=== PATIENT | male | born 1935 | race Caucasian/White ===

== ENCOUNTER 2016-12-05 17:51 | Inpatient (IN) | payer MEDICARE, MEDICAID ==
[~2016-12-05] VITALS: Ht 188 cm; Wt 118.9 kg
[2016-12-05 20:11] LABS: MEAN CORPUSCULAR HGB CONC 31.7 g/dl (32.0-36.5); MEAN CORPUSCULAR VOLUME 91.5 fl (80.0-96.0); PLATELET COUNT, AUTOMATED 238 k/mm3 (150-450)
[2016-12-05 20:33] LABS: ALBUMIN 2.7 GM/DL (3.2-5.2); ALBUMIN/GLOBULIN RATIO 0.52 (1.00-1.93); ALKALINE PHOSPHATASE 205 U/L (45-117); ALT/SGPT 18 U/L (12-78); ANION GAP 9 MEQ/L (8-16); AST/SGOT 15 U/L (15-37); BILIRUBIN,DIRECT 0.2 MG/DL (0.0-0.2); BILIRUBIN,TOTAL 0.5 MG/DL (0.2-1.0); BLOOD UREA NITROGEN 23 MG/DL (7-18); CALCIUM LEVEL 8.8 MG/DL (8.8-10.2); CARBON DIOXIDE LEVEL 27 MEQ/L (21-32); CHLORIDE LEVEL 90 MEQ/L (98-107); CREATININE FOR GFR 1.41 MG/DL (0.70-1.30); GLOMERULAR FILTRATION RATE 51.4 (>35); SODIUM LEVEL 126 MEQ/L (136-145); TOTAL PROTEIN 7.9 GM/DL (6.4-8.2)
[2016-12-05 20:39] LABS: GLUCOSE, FASTING 682 MG/DL (83-110); POTASSIUM SERUM 5.2 MEQ/L (3.5-5.1)
[2016-12-05 20:47] LABS: EOSINOPHILS 2 % (0-5)
[2016-12-05 20:48] LABS: PLATELET CLUMPS SMALL AMT
[2016-12-05] MEDS ORDERED: HumuLIN R (REGULAR) INSULIN (NovoLIN R) **100U/ML** PER UNIT As Ordered ONE ×2 (20:59→23:18)
[2016-12-05] MEDS: HumuLIN (NovoLIN)70/30 INSULIN INJ PER UNIT SC SCH (21:00)
--- NOTE | 2016-12-05 21:30 | REPUSA ---
Clinical history: Pain, swelling. Findings: The common femoral, superficial femoral, popliteal, and other deep venous structures compre ss normally and demonstrate normal color Doppler flow. Normal venous waveforms with augmentation are seen. Impression: No evidence of deep vein thrombosis in either femoral popliteal venous system.
[2016-12-05] MEDS: NS 1,000 ML IV SCH (22:13)
[2016-12-05] MEDS ORDERED: GLUCOSE 4 GM CHEW TABLET PO PRN (22:15)
[2016-12-05] MEDS ORDERED: DEXTROSE 50% 50 ML SYRINGE IV PRN (22:15)
[2016-12-05] MEDS ORDERED: ONDANSETRON 4MG/2ML VIAL (J2405) IV PRN (22:15)
[2016-12-05] MEDS ORDERED: GLUCAGON FOR INJ 1 MG VIAL (J1610) SC PRN (22:15)
[2016-12-05] MEDS ORDERED: ACETAMINOPHEN TAB 650MG DOSE (2X325MG) PO PRN (22:15)
[2016-12-05] MEDS ORDERED: HUMU70IN SC (22:22)
[2016-12-05] MEDS ORDERED: POTA10CA PO (22:22)
[2016-12-05] MEDS ORDERED: LISI-538 PO (22:22)
[2016-12-05] MEDS ORDERED: FURO20TA2 PO (22:22)
[2016-12-05] MEDS ORDERED: ATOR40TA PO (22:22)
[2016-12-05] MEDS ORDERED: METF500T PO (22:22)
[2016-12-05 22:30] LABS: OSMOLALITY SERUM 307 MOSM/KG (280-301)
[2016-12-05 23:49] LABS: ALBUMIN 2.5 GM/DL (3.2-5.2); CALCIUM LEVEL 8.3 MG/DL (8.8-10.2); CREATININE FOR GFR 1.24 MG/DL (0.70-1.30); GLOMERULAR FILTRATION RATE 59.6 (>35); PHOSPHORUS LEVEL 3.4 MG/DL (2.5-4.9)
[2016-12-06] MEDS ORDERED: ACETAMINOPHEN TAB 650MG DOSE (2X325MG) As Ordered ONE (00:54)
[2016-12-06] MEDS ORDERED: HumaLOG INSULIN (NovoLOG) PER UNIT As Ordered ONE (00:57)
--- NOTE | 2016-12-06 02:09 | EDDOCDS ---
Nurse's Notes [facility] Name: Adam Bonner Age: 81 yrs Sex: Male : 1935 Arrival Date: 12/05/2016 Time: 17:51 Bed Admit Hold Private MD: Diagnosis: Weakness;Hyperglycemia, unspecified;Hyperkalemia-Hyponatremia Presentation: 12/05 17:57 Presenting complaint: son states generalized weakness since Friday. Fell and injured rs3 Right temporal area on Friday. lives alone. Has h/o diabetes, heart disease. Adult Sepsis Screening: The patient does not have new or worsening altered mentation. Patient's respiratory rate is less than 22. Systolic blood pressure is greater than 100. Patient has a qSOFA score of 0- Negative Sepsis Screen. Suicide/Homicide risk assessment- the patient denies having any suicidal and/or homicidal ideations and does not present with any other emotional, behavioral or mental health complaints. Status: Patient is not a extension service supervisor or dependent. Transition of care: patient was not received from another setting of care. 17:57 Acuity: ANUM Level 3 rs3 17:57 Method Of Arrival: Wheelchair rs3 18:06 Red Flag criteria, patient assessed and taken directly to a bed. ck1 Triage Assessment: 18:02 General: Appears in no apparent distress. Pain: Location: right leg. rs3 Historical: - Allergies: no known allergies; - Home Meds: 1. Humulin 70/30 100 unit/mL (70-30) Sub-Q crtg twice a day 2. metformin 500 mg Oral Tb24 2 times per day 3. atorvastatin 40 mg oral tab 1 tab once daily 4. furosemide 20 mg Oral tab 1 tab once daily 5. potassium chloride 10 mEq Oral cpER 1 cap once daily 6. lisinopril 20 mg Oral tab 1 tab once daily - PMHx: Hypercholesterolemia; Hypertension; Diabetes - IDDM: controlled; - PSHx: prostate cancer; Appendectomy; - Social history: Smoking status: Patient states was never smoker of tobacco. Ethnicity: No barriers to communication noted, The patient speaks fluent Mongolian. - Family history: Not pertinent. - : The pt / caregiver states he / she is not on anticoagulants. Home medication list is obtained from family members. - Exposure Risk Screening:: None identified. Screenin:50 Screening information is obtained from family members. Fall risk: At risk due to prior jjr history of falls, The following interventions are performed due to a positive Fall Risk Screen: added to special handling. Abuse/DV Screen: The patient / caregiver reports he/she is: not in a situation that causes fear, pain or injury. Nutritional screening: No deficits noted. home support is adequate. 19:00 Assistance ADL's: Requires assistance with meal preparation, this assistance is jjr provided by family members, housework, assistance is provided by family members. Advance Directives: There is no active DNR order. Assessment: 18:48 General: Appears in no apparent distress, obese, unkempt. Pain: Location: medial aspect jjr of right calf and right mcdonough. Neurological: Level of Consciousness is awake, obeys commands. EENT: yellow drainage inner corner right eye. Respiratory: Airway is patent Respiratory effort is even, unlabored, Respiratory pattern is regular. Derm: Bruising that is dark purple, on beneath right eye hyperpigmentation to bilateral lower extremities with edema. 19:40 General: Appears in no apparent distress, obese, uncomfortable, unkempt, Behavior is cf2 appropriate for age, cooperative. Pain: Location: right leg and left leg. Neurological: Level of Consciousness is awake, alert, obeys commands, Oriented to person, place, Speech is normal. EENT: Eyes with exudate noted from right inner canthus periorbital ecchymosis. Cardiovascular: No deficits noted. Respiratory: Airway is patent Respiratory effort is even, unlabored, Respiratory pattern is regular. GI: No deficits noted. Abdomen is distended, Bowel sounds present X 4 quads. Abd is soft and non tender. : Reports incontinence since fall on friday. 12/06 00:53 Reassessment: Patient appears in no apparent distress at this time. Patient states cf2 symptoms have improved. Adult Sepsis Screening: The patient does not have new or worsening altered mentation. Patient's respiratory rate is less than 22. Systolic blood pressure is greater than 100. Patient has a qSOFA score of 0- Negative Sepsis Screen. General: Patient with blood sugar 490 -- Dr Jeronimo davis and patient orders received for Lispro 14 units subcut x's 1 dose. Patient medicated per md orders and Tylenol given for leg pain. 01:57 General: Patient with tiago care and incontinence care performed. Patient incontinent of cf2 urine. 01:57 General:. cf2 Vital Signs: 12/05 17:56 BP 113 / 52; Pulse 96; Resp 16; Temp 97.7(O); Pulse Ox 99% on R/A; Weight 125.19 kg lr2 (R); Height 6 ft. 2 in. (187.96 cm) (R); Pain 0/10; 19:53 BP 101 / 54 (auto/); cf2 19:53 Pulse 82 MON; cf2 19:54 Pulse 80 MON; Pulse Ox 94% ; cf2 20:23 BP 110 / 72 (auto/); cf2 20:23 Temp 98.5; Pulse Ox 94% ; Pain 3/10; cf2 20:24 Pulse 82 MON; Pulse Ox 98% ; cf2 20:53 BP 116 / 58 (auto/); cf2 20:54 Pulse 80 MON; Pulse Ox 93% ; cf2 21:23 BP 111 / 60 (auto/); cf2 21:24 Pulse 84 MON; Pulse Ox 94% ; cf2 21:27 Pulse 82 MON; cf2 21:31 Pulse 84 MON; Pulse Ox 94% ; cf2 21:33 Pulse 82 MON; Pulse Ox 93% ; cf2 21:42 Pulse 84 MON; Pulse Ox 95% ; cf2 21:47 Pulse 86 MON; Pulse Ox 92% ; cf2 21:52 Pulse 86 MON; Pulse Ox 91% ; cf2 21:53 BP 122 / 58 (auto/); cf2 21:54 Pulse 88 MON; cf2 22:23 BP 110 / 54 (auto/); cf2 22:24 Pulse 84 MON; cf2 22:53 BP 115 / 60 (auto/); cf2 22:54 Pulse 82 MON; cf2 23:03 Pulse 86 MON; Pulse Ox 78% ; cf2 23:06 Pulse 84 MON; Pulse Ox 69% ; cf2 23:14 Pulse 90 MON; Pulse Ox 94% ; cf2 23:23 BP 127 / 64 (auto/); cf2 23:24 Pulse 90 MON; Pulse Ox 62% ; cf2 23:32 Pulse 92 MON; Pulse Ox 94% ; cf2 23:38 Pulse 94 MON; Pulse Ox 96% ; cf2 23:43 Pulse 98 MON; Pulse Ox 96% ; cf2 23:47 Pulse 94 MON; Pulse Ox 97% ; cf2 23:52 Pulse 96 MON; Pulse Ox 97% ; cf2 12/06 00:05 Pulse 96 MON; Pulse Ox 96% ; cf2 00:08 Pulse 96 MON; Pulse Ox 95% ; cf2 00:12 Pulse 94 MON; Pulse Ox 95% ; cf2 00:16 Pulse 94 MON; cf2 00:16 BP 109 / 59 (auto/); cf2 00:18 Pulse 94 MON; Pulse Ox 94% ; cf2 00:35 Pulse 92 MON; Pulse Ox 94% ; cf2 00:41 Pulse 92 MON; Pulse Ox 94% ; cf2 00:46 BP 111 / 59 (auto/); cf2 00:46 Pulse 90 MON; Pulse Ox 95% ; cf2 00:52 Pulse 96 MON; cf2 00:56 Pulse 88 MON; Pulse Ox 94% ; cf2 01:03 Pulse 88 MON; Pulse Ox 95% ; cf2 01:08 Pulse 86 MON; Pulse Ox 96% ; cf2 01:16 BP 120 / 65 (auto/); cf2 01:16 Pulse 88 MON; cf2 01:21 Pulse 94 MON; cf2 01:28 Pulse 86 MON; cf2 01:31 Pulse 86 MON; cf2 01:35 Pulse 88 MON; cf2 01:39 Pulse 92 MON; cf2 12/05 17:56 Body Mass Index 35.44 (125.19 kg, 187.96 cm) lr2 Vitals: 12/05 17:51 RN notified that patient meets Red Flag criteria. lr2 17:55 Log In Time: December 05, 2016 at 17:51. lr2 ED Course: 17:53 Patient visited by Heidi Perera. lr2 17:53 Patient moved to Waiting lr2 17:54 Patient moved to Pre RCE lr2 17:59 Triage Initiated rs3 18:03 Criselda Marino, RN is Primary Nurse. rs3 18:03 Patient moved to 15 rs3 18:23 John Ball MD is Attending Physician. br1 18:33 Patient visited by John Ball MD. br1 18:43 Patient visited by Alex Rivera. dem1 18:43 EKG done. (by ED staff). Reviewed by John Ball MD. dem1 18:48 Missed attempts: 20 gauge X 1 in left antecubital area, Bleeding controlled, band aid jjr applied, catheter tip intact. 18:50 The patient / caregiver is instructed regarding the plan of care and ED course. jjr 19:00 Patient visited by Criselda Marino RN. jjr 19:15 Primary Nurse role handed off by Criselda Marino, RN cf2 19:15 Katiana Enciso,BYRON is Primary Nurse. cf2 19:15 Patient visited by Katiana Enciso RN. cf2 19:15 Patient visited by Katiana Enciso,BYRON. cf2 19:54 Patient has correct armband on for positive identification. Placed in gown. Bed in low cf2 position. Call light in reach. Side rails up X 1. Side rails up X2. Adult w/ patient. immigration inspector on. Pulse ox on. NIBP on. Property :Personal belongings accompany Pt. Door closed. Noise minimized. Visitors limited. Lights dimmed. Moved to private room. Verbal reassurance given. Warm blanket given. Pillow given. Head of bed elevated. 19:54 Inserted saline lock: 20 gauge in left forearm and blood collected. The patient cf2 tolerated the procedure well. No procedures done that require assistance. 19:55 Patient visited by Katiana Enciso RN. cf2 19:55 TROPONIN Sent. cf2 19:55 LIVER PROFILE Sent. cf2 19:55 -Influenza A&B Rapid Antigen - Nose Sent. cf2 19:56 BMP Sent. cf2 19:56 CBC with Diff Sent. cf2 20:17 Patient visited by Katiana Enciso RN. cf2 20:20 DIFFERENTIAL NO CHARGE Sent. cf2 20:41 Patient visited by Katiana Enciso RN. cf2 21:02 [facility] Payment Agreement was scanned into [employer] and attached to record. ks16 21:34 Patient visited by Katiana Enciso RN. cf2 21:42 Patient visited by Katiana Enciso RN. cf2 21:46 Ultrasound Bilateral LE R/O DVT Returned. EDMS 22:12 Jose Decker DO is Hospitalizing Provider. br1 23:53 Patient moved to Admit Hold sls1 12/06 00:09 Patient visited by Katiana Enciso RN. cf2 01:23 Patient visited by Katiana Enciso RN. cf2 01:57 Patient visited by Katiana Enciso RN. cf2 Administered Medications: 12/05 20:05 Drug: NS 0.9% 1000 ml [sodium chloride 0.9 % intravenous solution] Route: IV; Rate: 150 cf2 mL/hr; Site: left antecubital; 21:00 Drug: Insulin Regular Human 5 units [insulin regular human 100 unit/mL injection cf2 solution (0.05 mL)] {Co-Signature: tm5 (Amy Villaseñor RN).} Route: IVP; Site: left antecubital; 23:24 Drug: Insulin Regular Human 10 units [insulin regular human 100 unit/mL injection tm5 solution (0.1 mL)] {Co-Signature: cf2 (Katiana Enciso RN).} Route: IVP; Site: left forearm; 12/06 01:28 Drug: HumaLog - Insulin Lispro 14 units [insulin lispro 100 unit/mL subcutaneous cf2 solution (0.14 mL)] {Co-Signature: tm5 (Amy Villaseñor RN).} Route: Sub-Q; Site: left upper arm; 01:28 Drug: Acetaminophen 650 mg [acetaminophen 325 mg tablet (2 tabs)] Route: PO; cf2 Order Results: Lab Order: CBC with Diff; SPEC'M 12/05/16 19:50 Test: WHITE BLOOD COUNT; Value: 9.0; Range: 4.0-10.0; Units: K/mm3; Status: F Test: RED BLOOD COUNT; Value: 4.17; Range: 4.30-6.10; Abnormal: Below low normal; Units: M/mm3; Status: F Test: HEMOGLOBIN; Value: 12.1; Range: 14.0-18.0; Abnormal: Below low normal; Units: g/dl; Status: F Test: HEMATOCRIT; Value: 38.2; Range: 42.0-52.0; Abnormal: Below low normal; Units: %; Status: F Test: MEAN CORPUSCULAR VOLUME; Value: 91.5; Range: 80.0-96.0; Units: fl; Status: F Test: MEAN CORPUSCULAR HEMOGLOBIN; Value: 29.0; Range: 27.0-33.0; Units: pg; Status: F Test: MEAN CORPUSCULAR HGB CONC; Value: 31.7; Range: 32.0-36.5; Abnormal: Below low normal; Units: g/dl; Status: F Test: RED CELL DISTRIBUTION WIDTH; Value: 13.0; Range: 11.5-14.5; Units: %; Status: F Test: PLATELET COUNT, AUTOMATED; Value: 238; Range: 150-450; Units: k/mm3; Status: F Test: NEUTROPHILS; Value: 84; Range: 35-75; Abnormal: Above high normal; Units: %; Status: F Test: LYMPHOCYTES; Value: 8; Range: 16-52; Abnormal: Below low normal; Units: %; Status: F Test: MONOCYTES; Value: 6; Range: 0-8; Units: %; Status: F Test: EOSINOPHILS; Value: 2; Range: 0-5; Units: %; Status: F Test: PLATELET CLUMPS; Value: SMALL AMT; Status: F Lab Order: [facility]; SPEC'M 12/05/16 19:50 Test: GLUCOSE, FASTING; Value: 682; Range: 83-110; Abnormal: Above upper panic limits; Units: MG/DL; Status: F Test: BLOOD UREA NITROGEN; Value: 23; Range: 7-18; Abnormal: Above high normal; Units: MG/DL; Status: F Test: CREATININE FOR GFR; Value: 1.41; Range: 0.70-1.30; Abnormal: Above high normal; Units: MG/DL; Status: F Test: GLOMERULAR FILTRATION RATE; Value: 51.4; Range: >35; Status: F Test: SODIUM LEVEL; Value: 126; Range: 136-145; Abnormal: Below low normal; Units: MEQ/L; Status: F Test: POTASSIUM SERUM; Value: 5.2; Range: 3.5-5.1; Abnormal: Above high normal; Units: MEQ/L; Status: F Test: CHLORIDE LEVEL; Value: 90; Range: 98-107; Abnormal: Below low normal; Units: MEQ/L; Status: F Test: CARBON DIOXIDE LEVEL; Value: 27; Range: 21-32; Units: MEQ/L; Status: F Test: ANION GAP; Value: 9; Range: 8-16; Units: MEQ/L; Status: F Test: CALCIUM LEVEL; Value: 8.8; Range: 8.8-10.2; Units: MG/DL; Status: F Test Note: ; Units are mL/min/1.73 m2 Chronic Kidney Disease Staging per NKF: Stage I & II GFR >=60 Normal to Mildly Decreased Stage III GFR 30-59 Moderately Decreased Stage IV GFR 15-29 Severely Decreased Stage V GFR <15 Very Little GFR Left ESRD GFR <15 on INVESTMENT BANKER Lab Order: BNP; SPEC'M 12/05/16 19:50 Test: BRAIN NATRIURETIC PEPTIDE; Value: 20.3; Range: <100; Units: PG/ML; Status: F Lab Order: -Influenza A&B Rapid Antigen - Nose; SPEC'M 12/05/16 19:50 Test: INFLUENZA A RAPID SCR by ICA; Value: INFLUENZA A RESULTS NEGATIVE; Status: F Test: INFLUENZA A RAPID SCR by ICA; Value: Comments:; Status: F Test: INFLUENZA B RAPID SCR by ICA; Value: INFLUENZA B RESULTS NEGATIVE; Status: F Test Note: ; The Influenza test is a direct rapid immunoassay for the qualitative detection of Influenza viral antigen. Cell culture (Viral Culture) testing should be considered to confirm NEGATIVE results and to assist in detecting other viruses that can provide similar clinical symptoms. Please contact the lab within 24 [phone] if confirmatory testing is desired. Lab Order: LIVER PROFILE; SPEC'M 12/05/16 19:50 Test: AST/SGOT; Value: 15; Range: 15-37; Units: U/L; Status: F Test: ALT/SGPT; Value: 18; Range: 12-78; Units: U/L; Status: F Test: ALKALINE PHOSPHATASE; Value: 205; Range: 45-117; Abnormal: Above high normal; Units: U/L; Status: F Test: BILIRUBIN,TOTAL; Value: 0.5; Range: 0.2-1.0; Units: MG/DL; Status: F Test: BILIRUBIN,DIRECT; Value: 0.2; Range: 0.0-0.2; Units: MG/DL; Status: F Test: TOTAL PROTEIN; Value: 7.9; Range: 6.4-8.2; Units: GM/DL; Status: F Test: ALBUMIN; Value: 2.7; Range: 3.2-5.2; Abnormal: Below low normal; Units: GM/DL; Status: F Test: ALBUMIN/GLOBULIN RATIO; Value: 0.52; Range: 1.00-1.93; Abnormal: Below low normal; Status: F Lab Order: TROPONIN; [facility] 12/05/16 19:50 Test: TROPONIN I; Value: < 0.02; Range: < 0.10; Units: NG/ML; Status: F Test Note: ; Troponin I Reference Interval for [employer]ame LOCI: 99th Percentile= 0.00-0.045 ng/ml Risk Stratification: <= 0.10 ng/ml Decreased Risk for Adverse Clinical Events. 0.10-1.50 ng/ml Increased Risk for Adverse Clinical Events. Evaluation of additional criterion and/or repeat testing in 2-6 hours is suggested to rule out myocardial damage. >= 1.50 ng/ml Indicative of Myocardial Injury. Lab Order: PLATELET ESTIMATE; [facility] 12/05/16 19:50 Test: PLATELET ESTIMATE; Value: NORMAL; Range: NORMAL; Status: F Lab Order: OSMOLALITY, SERUM; [facility] 12/05/16 19:50 Test: OSMOLALITY SERUM; Value: 307; Range: 280-301; Abnormal: Above high normal; Units: MOSM/KG; Status: F Lab Order: RENAL PROFILE; [facility] 12/05/16 23:18 Test: GLUCOSE, FASTING; Value: 608; Range: 83-110; Abnormal: Above upper panic limits; Units: MG/DL; Status: F Test: BLOOD UREA NITROGEN; Value: 23; Range: 7-18; Abnormal: Above high normal; Units: MG/DL; Status: F Test: CREATININE FOR GFR; Value: 1.24; Range: 0.70-1.30; Units: MG/DL; Status: F Test: GLOMERULAR FILTRATION RATE; Value: 59.6; Range: >35; Status: F Test: SODIUM LEVEL; Value: 129; Range: 136-145; Abnormal: Below low normal; Units: MEQ/L; Status: F Test: POTASSIUM SERUM; Value: 5.0; Range: 3.5-5.1; Units: MEQ/L; Status: F Test: CHLORIDE LEVEL; Value: 94; Range: 98-107; Abnormal: Below low normal; Units: MEQ/L; Status: F Test: CARBON DIOXIDE LEVEL; Value: 29; Range: 21-32; Units: MEQ/L; Status: F Test: ANION GAP; Value: 6; Range: 8-16; Abnormal: Below low normal; Units: MEQ/L; Status: F Test: CALCIUM LEVEL; Value: 8.3; Range: 8.8-10.2; Abnormal: Below low normal; Units: MG/DL; Status: F Test: PHOSPHORUS LEVEL; Value: 3.4; Range: 2.5-4.9; Units: MG/DL; Status: F Test: ALBUMIN; Value: 2.5; Range: 3.2-5.2; Abnormal: Below low normal; Units: GM/DL; Status: F Test Note: ; Units are mL/min/1.73 m2 Chronic Kidney Disease Staging per NKF: Stage I & II GFR >=60 Normal to Mildly Decreased Stage III GFR 30-59 Moderately Decreased Stage IV GFR 15-29 Severely Decreased Stage V GFR <15 Very Little GFR Left ESRD GFR <15 on INVESTMENT BANKER Lab Order: Fingerstick Blood Sugar; SPEC'M 12/06/16 00:50 Test: BEDSIDE GLUCOSE; Value: 490; Range: 83-110; Abnormal: Above high normal; Units: MG/DL; Status: F Radiology Order: Ultrasound Bilateral LE R/O DVT Test: Ultrasound Bilateral LE R/O DVT REASON FOR EXAMINATION: Deformity/Swelling; ; Clinical history: Pain, swelling.; Findings: The common femoral, superficial femoral, popliteal, and other deep venous structures compre; ss normally and demonstrate normal color Doppler flow. Normal venous waveforms with augmentation are; seen.; Impression:; No evidence of deep vein thrombosis in either femoral popliteal venous system.; ; Outcome: 12/05 19:54 CT Study completed. cf2 22:12 Decision to Hospitalize by Provider. br1 12/06 02:04 Discharge Assessment: Patient awake, alert and oriented x 3. No cognitive and/or cf2 functional deficits noted. Patient verbalized understanding of disposition instructions. Patient awake and alert. Oriented to person, place and time. patient administered narcotics - no. The following High Risk Discharge criteria are identified: Yes, Admitted to Floor. Condition: stable Condition: improved. 02:07 Patient left the ED. cf2 Signatures: Dispatcher [employer] EDMS Tiffany Costello,RN RN ck1 John Ball MD MD br1 Criselda Marino RN RN jjr Telly,YumikoRN RN rs3 Meagan George RN RN sls1 Alex Rivera1 Judy Cline, Reg Reg ks16 Katiana Enciso RN RN cf2 Amy Villaseñor RN RN tm5 Heidi Perera 2 Amy Villaseñor RN tm5 Katiana Enciso RN cf2 MTDD
--- NOTE | 2016-12-06 02:09 | EDDOCDS ---
Physician Documentation [facility] Name: Adam Bonner Age: 81 yrs Sex: Male : 1935 Arrival Date: 12/05/2016 Time: 17:51 Bed Admit Hold Private MD: Disposition: 12/05/16 22:12 Hospitalization ordered by Jose Decker for Inpatient Admission. Preliminary diagnosis are Weakness, Hyperglycemia, unspecified, Hyperkalemia - Hyponatremia. - Bed requested for 5 Ceja. - Status is Inpatient Admission. cf2 - Condition is Stable. - Problem is new. - Symptoms are unchanged. Historical: - Allergies: no known allergies; - Home Meds: 1. Humulin 70/30 100 unit/mL (70-30) Sub-Q crtg twice a day 2. metformin 500 mg Oral Tb24 2 times per day 3. atorvastatin 40 mg oral tab 1 tab once daily 4. furosemide 20 mg Oral tab 1 tab once daily 5. potassium chloride 10 mEq Oral cpER 1 cap once daily 6. lisinopril 20 mg Oral tab 1 tab once daily - PMHx: Hypercholesterolemia; Hypertension; Diabetes - IDDM: controlled; - PSHx: prostate cancer; Appendectomy; - Social history: Smoking status: Patient states was never smoker of tobacco. Ethnicity: No barriers to communication noted, The patient speaks fluent Kiswahili. - Family history: Not pertinent. - : The pt / caregiver states he / she is not on anticoagulants. Home medication list is obtained from family members. - Exposure Risk Screening:: None identified. Vital Signs: 12/05 17:56 BP 113 / 52; Pulse 96; Resp 16; Temp 97.7(O); Pulse Ox 99% on R/A; Weight 125.19 kg / lr2 276 lbs (R); Height 6 ft. 2 in. (187.96 cm) (R); Pain 0/10; 19:53 BP 101 / 54 (auto/); cf2 19:53 Pulse 82 MON; cf2 19:54 Pulse 80 MON; Pulse Ox 94% ; cf2 20:23 BP 110 / 72 (auto/); cf2 20:23 Temp 98.5; Pulse Ox 94% ; Pain 3/10; cf2 20:24 Pulse 82 MON; Pulse Ox 98% ; cf2 20:53 BP 116 / 58 (auto/); cf2 20:54 Pulse 80 MON; Pulse Ox 93% ; cf2 21:23 BP 111 / 60 (auto/); cf2 21:24 Pulse 84 MON; Pulse Ox 94% ; cf2 21:27 Pulse 82 MON; cf2 21:31 Pulse 84 MON; Pulse Ox 94% ; cf2 21:33 Pulse 82 MON; Pulse Ox 93% ; cf2 21:42 Pulse 84 MON; Pulse Ox 95% ; cf2 21:47 Pulse 86 MON; Pulse Ox 92% ; cf2 21:52 Pulse 86 MON; Pulse Ox 91% ; cf2 21:53 BP 122 / 58 (auto/); cf2 21:54 Pulse 88 MON; cf2 22:23 BP 110 / 54 (auto/); cf2 22:24 Pulse 84 MON; cf2 22:53 BP 115 / 60 (auto/); cf2 22:54 Pulse 82 MON; cf2 23:03 Pulse 86 MON; Pulse Ox 78% ; cf2 23:06 Pulse 84 MON; Pulse Ox 69% ; cf2 23:14 Pulse 90 MON; Pulse Ox 94% ; cf2 23:23 BP 127 / 64 (auto/); cf2 23:24 Pulse 90 MON; Pulse Ox 62% ; cf2 23:32 Pulse 92 MON; Pulse Ox 94% ; cf2 23:38 Pulse 94 MON; Pulse Ox 96% ; cf2 23:43 Pulse 98 MON; Pulse Ox 96% ; cf2 23:47 Pulse 94 MON; Pulse Ox 97% ; cf2 23:52 Pulse 96 MON; Pulse Ox 97% ; cf2 12/06 00:05 Pulse 96 MON; Pulse Ox 96% ; cf2 00:08 Pulse 96 MON; Pulse Ox 95% ; cf2 00:12 Pulse 94 MON; Pulse Ox 95% ; cf2 00:16 Pulse 94 MON; cf2 00:16 BP 109 / 59 (auto/); cf2 00:18 Pulse 94 MON; Pulse Ox 94% ; cf2 00:35 Pulse 92 MON; Pulse Ox 94% ; cf2 00:41 Pulse 92 MON; Pulse Ox 94% ; cf2 00:46 BP 111 / 59 (auto/); cf2 00:46 Pulse 90 MON; Pulse Ox 95% ; cf2 00:52 Pulse 96 MON; cf2 00:56 Pulse 88 MON; Pulse Ox 94% ; cf2 01:03 Pulse 88 MON; Pulse Ox 95% ; cf2 01:08 Pulse 86 MON; Pulse Ox 96% ; cf2 01:16 BP 120 / 65 (auto/); cf2 01:16 Pulse 88 MON; cf2 01:21 Pulse 94 MON; cf2 01:28 Pulse 86 MON; cf2 01:31 Pulse 86 MON; cf2 01:35 Pulse 88 MON; cf2 01:39 Pulse 92 MON; cf2 12/05 17:56 Body Mass Index 35.44 (125.19 kg, 187.96 cm) lr2 MDM: 12/05 18:21 IV Saline Lock ordered. br1 18:21 Distance Education Coordinator/Pulse Ox/q 30 min VS ordered. br1 18:21 ECG WITH READING ER PHYS+CARDIAG ordered. EDMS 18:22 CBC with Diff Ordered. EDMS 18:22 BMP Ordered. EDMS 18:34 Tibia/Fibula Ordered. EDMS 18:36 Femur Ordered. EDMS 18:36 CT Head Without Contrast Ordered. EDMS 18:36 CT Spine,Cervical W/o Contrast Ordered. EDMS 18:36 CT Maxilofacial W/out Contrast Ordered. EDMS 18:36 BNP Ordered. EDMS 18:37 -Influenza A&B Rapid Antigen - Nose Ordered. EDMS 18:37 Ultrasound Bilateral LE R/O DVT Ordered. EDMS 18:37 Chest, 2 View (pa\E\lat) Ordered. EDMS 19:39 LIVER PROFILE Ordered. EDMS 19:39 TROPONIN Ordered. EDMS 19:59 NS 0.9% 1000 ml IV at 150 mL/hr continuous ordered. br1 20:13 DIFFERENTIAL NO CHARGE Ordered. EDMS 20:13 PLATELET ESTIMATE Ordered. EDMS 20:23 CBC with Diff Reviewed. br1 20:23 -Influenza A&B Rapid Antigen - Nose Reviewed. br1 20:51 Financial registration complete. zo 20:53 CBC with Diff Reviewed. br1 20:53 BMP Reviewed. br1 20:53 LIVER PROFILE Reviewed. br1 20:53 BNP Reviewed. br1 20:53 TROPONIN Reviewed. br1 20:53 PLATELET ESTIMATE Reviewed. br1 20:53 Insulin Regular Human 5 units IVP once ordered. br1 21:02 [facility] Payment Agreement was scanned into [employer] and attached to record. [id number] 21:48 Misc. Nursing Order ordered. br1 21:50 BED REQUEST+ADM ordered. EDMS 22:05 OSMOLALITY, SERUM Ordered. EDMS 22:21 COMPLETE BLOOD COUNT Ordered. EDMS 22:21 BASIC METABOLIC PROFILE Ordered. EDMS 22:22 PHYSICAL THERAPY EVAL & TREAT ordered. EDMS 22:23 Admission / Observation Status ordered. EDMS 22:23 CONSISTENT CARBOHYDRATES ordered. EDMS 22:50 RENAL PROFILE Ordered. EDMS 23:24 Insulin Regular Human 10 units IVP once ordered. tm5 23:50 BMP Reviewed. br1 23:50 LIVER PROFILE Reviewed. br1 23:50 OSMOLALITY, SERUM Reviewed. br1 23:50 TROPONIN Reviewed. br1 23:50 Ultrasound Bilateral LE R/O DVT Reviewed. br1 12/06 00:04 Admission / Observation Status ordered. EDMS 00:57 Fingerstick Blood Sugar Ordered. EDMS 01:28 HumaLog - Insulin Lispro 14 units Sub-Q once; Dr Decker's order ordered. cf2 01:28 Acetaminophen Tablet 650 mg PO once; Dr Decker orders ordered. cf2 Administered Medications: 12/05 20:05 Drug: NS 0.9% 1000 ml [sodium chloride 0.9 % intravenous solution] Route: IV; Rate: 150 cf2 mL/hr; Site: left antecubital; 21:00 Drug: Insulin Regular Human 5 units [insulin regular human 100 unit/mL injection cf2 solution (0.05 mL)] {Co-Signature: tm5 (Amy Villaseñor RN).} Route: IVP; Site: left antecubital; 23:24 Drug: Insulin Regular Human 10 units [insulin regular human 100 unit/mL injection tm5 solution (0.1 mL)] {Co-Signature: cf2 (Katiana Enciso RN).} Route: IVP; Site: left forearm; 12/06 01:28 Drug: HumaLog - Insulin Lispro 14 units [insulin lispro 100 unit/mL subcutaneous cf2 solution (0.14 mL)] {Co-Signature: tm5 (Amy Villaseñor RN).} Route: Sub-Q; Site: left upper arm; 01:28 Drug: Acetaminophen 650 mg [acetaminophen 325 mg tablet (2 tabs)] Route: PO; cf2 Signatures: Dispatcher [employer] EDMS Caroline Gong RN RN Malissa Lakhani Brian, MD MD br1 Yumiko Varner RN RN rs3 Judy Cline, Reg Reg [id number] Zaria,KatianaRN RN cf2 Amy Villaseñor RN RN tm5 Amy Villaseñor RN tm5 Katiana Enciso RN cf2 The chart was reviewed and I authenticate all verbal orders and agree with the evaluation and treatment provided.Corrections: (The following items were deleted from the chart) 12/05 19:37 18:36 TROPONIN+LAB ordered. EDMS EDMS 19:37 18:37 LIVER PROFILE+LAB ordered. EDMS EDMS 19:56 18:21 Orthostatic VS ordered. br1 cf2 22:05 21:50 OSMOLALITY, SERUM+LAB ordered. EDMS EDMS Attachments: 21:02 [facility] Payment Agreement [email or web address] MTDD
[2016-12-06 02:15] VITALS: BP 117/74
[2016-12-06] MEDS: HEPARIN SOD (PORCINE) 5000 UNITS/ML VIAL SC SCH ×3 (05:03→20:50)
--- NOTE | 2016-12-06 05:34 | HPE ---
DATE OF ADMISSION: 12/05/2016 Primary care provider is PK Smith. CODE STATUS: DO NOT RESUSCITATE, which the family informed me that they would bring in to the hospital tomorrow CHIEF COMPLAINT: Generalized weakness with recurrent falls. HISTORY OF PRESENT ILLNESS: Mr. Bonner is a pleasant, 81-year-old gentleman, who lives at home by myself, was found by his son earlier today, had been down on the floor for several hours. Stated that he and his had noticed that the patient has had increased generalized weakness since Friday. Fell multiple times. Last fell this past Friday a few days ago, injuring the right side of his face with ecchymosis around the right eye. He does have a history of diabetes. The family informs me that he is poorly compliant with his insulin injections and has noticed that he has become more incontinent with his voiding. He does inform me that he has had a lot of polyuria, polydipsia and increased thirst. Presented to the emergency department with a blood sugar greater than 700. Hyponatremia likely related to osmotic effect from the elevated blood sugar and hyperkalemic. He denies any chest pain, shortness of breath productive sputum or cough. He is pleasant to talk to. PAST MEDICAL HISTORY: Hyperlipidemia, hypertension, diabetes, poorly controlled. PAST SURGICAL HISTORY: Prostate cancer, appendectomy. SOCIAL HISTORY: Denies tobacco use, alcohol use. No recent travel. No sick contacts. FAMILY HISTORY: Noncontributory. ALLERGIES: NO KNOWN DRUG ALLERGIES. HOME MEDICATIONS: - Humulin 70/30 100 units twice a day - metformin 500 mg twice a day - Lipitor 40 mg daily - Lasix 20 mg daily - potassium chloride 10 mEq daily - lisinopril 20 mg daily REVIEW OF SYSTEMS: Constitutional: He denies fevers, chills, rigors. No lightheadedness, dizziness. No change in appetite. HEENT: No headache, lightheaded, dizziness, blurry vision or double vision. He does have bruising and ecchymosis around the right eye from his fall few days ago. Otherwise, no difficulty with speech or swallow. Pulmonary: He denies productive sputum cough or hemoptysis. Cardiovascular: No chest pain, paroxysmal nocturnal dyspnea (PND), orthopnea. No lower extremity edema. Gastrointestinal (GI): No nausea, vomiting, diarrhea. Bowel movements are regular. He denies any hematochezia or melena. Genitourinary (): No dysuria. Positive for frequency. Positive for polyuria and polydipsia. Musculoskeletal: Generalized weakness. No specific bone loss or joint pain. Neurologic: Generalized weakness with recurrent falls, but no paresthesias or paralysis. No history of seizure disorder. No history of migraines. Endocrine: Positive for diabetes, which is poorly controlled. No history of thyroid disorder. Lymphatics: No lumps, bumps, swelling in neck, axilla or groin. No night sweats. No weight loss. Hematology: No bleeding or bruising disorder. No prior history of venous thromboembolism. Oncology: He does have a previous history of prostate cancer and prostatectomy. Psychiatric: No history of psychiatric illness. No suicidal ideation. No depression. No audiovisual hallucinations. 10-point review of systems complete. Pertinent positives are listed. PHYSICAL EXAMINATION: Temperature is 97.7, respiratory rate 16 and nonlabored, pulse 82, blood pressure (BP) 101/54, SpO2 is 99% on room air. General: The patient appears to be in no acute distress. He is alert, pleasant talk to. HEENT: He does have ecchymosis and bruising around the right eye. Turbinates are clear. Throat clear. Neck: Supple. Lungs: Clear to auscultation. Heart: Regular rate and rhythm. Abdomen: Soft. Extremities: No edema. No calf tenderness. Bacon Skinner strength is equal. Neurologic: Cranial nerves II-XII grossly intact. LABORATORY DATA AND DIAGNOSTICS: White count is 9.0, hemoglobin 12.1, platelets are 238,000. Sodium is 126, potassium 5.2, chloride 90, bicarbonate 27, anion gap 9, BUN was 23, creatinine 1.41, glucose 682. Osmolality is 307. Calcium 8.8. Total bilirubin 0.5, direct bilirubin 0.2, AST 15, ALT 18, alkaline phosphatase 205. Troponin less than 0.02. BNP is 20.3. Albumin is 2.7. Influenza A and B are negative. X-rays of the tibia/fibula right femur unremarkable for fracture. Chest x-ray clear with no acute cardiopulmonary processes. CT scan of the head without contrast: Atrophy, chronic changes. No acute intracranial pathology, trauma or injury. CT of the cervical spine: No acute fracture or compression noted. CT of the maxillofacial without contrast: No fracture. Sinuses are clear. No fluid levels. Ultrasound of bilateral lower extremities negative for deep venous thrombosis (DVT). 12-lead EKG: Sinus rhythm, first-degree atrioventricular (AV) block. No acute ST-T wave abnormality. His lower extremities however, did show some chronic venous stasis changes. IMPRESSION: Mr. Bonner is a pleasant, 81-year-old male, who is poorly compliant with his diabetes, has been found down a few times this past week by his family and concerned that he can no longer provide adequate care for himself. He does have hyperglycemia, hyperkalemia, some mild acute kidney injury. Hospitalist was called for admission. I will admit him and I will make some corrections in his insulin, correct his electrolyte abnormality and get patient and family services (PFS) involved. PROBLEM LIST: 1. Hyperglycemia. 2. Hyponatremia secondary to elevated glucose. 3. Hyperkalemia. 4. Acute kidney injury. 5. Increased generalized weakness, deconditioning. 6. Hyperlipidemia. 7. Hypertension. PLAN: The patient will be admitted to progressive care unit (PCU) on telemetry due to his hyperkalemia. Once this is corrected and if he is having no further problems, we will most likely downgrade him to medical-surgical. In the meantime, we will hold his metformin, hold his potassium chloride supplementation as well as lisinopril. We will start him on fingersticks before food and nightly. He was given 2 units of regular insulin IV in the emergency department. We will continue to gently hydrate him with IV normal saline 60 mL/hr. DVT prophylaxis with heparin. DISPOSITION: We will request physical therapy (PT) evaluation and treatment, PFS consult. The patient may need subacute rehabilitation versus placement. Dr. Walker will be taking care of him tomorrow morning.
[2016-12-06 06:55] LABS: MEAN CORPUSCULAR HEMOGLOBIN 30.4 pg (27.0-33.0); MEAN CORPUSCULAR HGB CONC 33.7 g/dl (32.0-36.5); MEAN CORPUSCULAR VOLUME 90.1 fl (80.0-96.0); RED CELL DISTRIBUTION WIDTH 13.1 % (11.5-14.5); WHITE BLOOD COUNT 8.4 K/mm3 (4.0-10.0)
[2016-12-06 07:06] LABS: ANION GAP 6 MEQ/L (8-16); BLOOD UREA NITROGEN 20 MG/DL (7-18); CALCIUM LEVEL 7.9 MG/DL (8.8-10.2); CARBON DIOXIDE LEVEL 28 MEQ/L (21-32); CHLORIDE LEVEL 100 MEQ/L (98-107); CREATININE FOR GFR 1.06 MG/DL (0.70-1.30); GLOMERULAR FILTRATION RATE > 60.0 (>35); GLUCOSE, FASTING 268 MG/DL (83-110); POTASSIUM SERUM 3.9 MEQ/L (3.5-5.1); SODIUM LEVEL 134 MEQ/L (136-145)
--- NOTE | 2016-12-06 08:24 | REP ---
Clinical: Trauma. Technique: Axial images from the skull base to the thoracic inlet with coronal and sagittal re-formations. Findings: Advanced multilevel degenerative disc osteophyte complexes are noted and predominantly involve the C5-6, C6-7 levels. Findings include osteophytosis, endplate sclerosis and disc space narrowing along with hypertrophic facet changes. Alignment and lordosis maintained. No acute fracture / compression injury or subluxation. Posterior elements and spinous processes are intact. Spinal canal is patent. Impression: Advanced multilevel degenerative changes. No acute fracture / compression injury or subluxation. Signed by Oleg Braxton MD 12/06/2016 08:16 A
--- NOTE | 2016-12-06 08:25 | REP ---
Clinical: Trauma . Findings: Age-related atrophy and microvascular ischemic changes are appreciated. The ventricles and sulci are symmetric. Ahuja-white differentiation is maintained. There is no evidence for acute intracranial hemorrhage, mass/mass effect, pathology or infarction. No extra-axial fluid collection. Calvarium is intact. Paranasal sinuses and mastoid air cells are clear. Impression: Age related atrophy and microvascular ischemic changes. No acute intracranial hemorrhage, infarction, or mass/mass effect. Signed by Oleg Braxton MD 12/06/2016 08:16 A
--- NOTE | 2016-12-06 08:29 | REP ---
Clinical: Trauma. Technique: Axial noncontrast images through the facial bones to include the mandible with coronal and sagittal re-formations. Findings: The osseous structures are intact and there is no evidence for fracture or dislocation. Specifically, the bilateral zygomatic arches, nasal bones, and mandible including bilateral temporomandibular joints appear normal and symmetric. The sinuses and mastoid air cells are all well aerated and clear without fluid level to suggest occult trauma. The bilateral orbits including the globes and intraconal contents appear symmetric and normal. The surrounding soft tissues are grossly unremarkable. Impression: Normal maxillofacial CT. No evidence for acute pathology or trauma/injury. Signed by Oleg Braxton MD 12/06/2016 08:21 A
[2016-12-06] MEDS: HumaLOG INSULIN (NovoLOG) PER UNIT SC SCH ×4 (08:45→22:43)
[2016-12-06] MEDS: HumuLIN (NovoLIN)70/30 INSULIN INJ PER UNIT SC SCH ×2 (08:45→20:50)
[2016-12-06] MEDS: DOCUSATE SODIUM 100 MG CAP PO SCH ×2 (08:46→20:49)
[2016-12-06] MEDS: FUROSEMIDE 20 MG TAB PO SCH (08:46)
[2016-12-06] MEDS: ATORVASTATIN 20 MG TAB PO SCH (08:46)
--- NOTE | 2016-12-06 09:57 | REP ---
Clinical: Trauma. Technique: AP and lateral views of the right tibia / fibula. Findings: Osteopenia and advanced arthritic degenerative changes noted. No acute fracture or dislocation. Impression: Arthritic degenerative changes. No acute fracture or dislocation. Signed by Oleg Braxton MD 12/06/2016 09:49 A
--- NOTE | 2016-12-06 09:57 | REP ---
Clinical: Trauma. Technique: AP and lateral views of the left femur. Findings: Enthesopathy and moderate arthritic degenerative changes to the hip joint noted. Advanced tricompartmental degenerative changes to the knee joint noted. No acute fracture or dislocation. Impression: Degenerative changes. No acute fracture or dislocation. Signed by Oleg Braxton MD 12/06/2016 09:49 A
--- NOTE | 2016-12-06 09:58 | REP ---
Clinical: Trauma. Technique: AP and lateral views. Comparison: 08/29/2016. Findings: Cardiomegaly suggested. Lung romano demonstrate chronic interstitial changes. No acute consolidation, effusion, or pneumothorax. Skeletal structures demonstrate age-related degenerative changes. Impression: Cardiomegaly and chronic changes. No acute cardiopulmonary process. Signed by Oleg Braxton MD 12/06/2016 09:50 A
[2016-12-06 14:00] VITALS: BP 111/56
[2016-12-06] MEDS: EUCERIN 120GM CREAM TOP SCH ×2 (14:28→20:50)
[2016-12-06] MEDS: DIAPER RELIEF OINT (DESITIN) 60GM TOP SCH (14:28)
--- NOTE | 2016-12-06 19:47 | ECGEPIP ---
Stationary ECG Study [facility] - ED Test Date: 2016-12-05 Pat Name: TELLY KING Department: Room: - Gender: M Biologist: rosaura : 1935 Requested By: JERAMY Avilez Order Number: [id number] Reading MD: Aleisha Moses Measurements Intervals [place] Rate: 87 P: 42 [place]: 237 QRS: -30 QRSD: 95 T: 54 QT: 343 QTc: 413 Interpretive Statements SINUS RHYTHM WITH FIRST DEGREE AV BLOCK BORDERLINE LEFT AXIS DEVIATION NSTTW ABNORMALITY NO PRIOR FOR COMPARISON Electronically Signed On 12-06-2016 19:47:07 EST by Aleisha Moses
[2016-12-06] MEDS: NS 1,000 ML IV SCH (20:49)
[2016-12-06 22:00] VITALS: BP 140/64
[2016-12-07 06:00] VITALS: BP 127/60
[2016-12-07] MEDS: HEPARIN SOD (PORCINE) 5000 UNITS/ML VIAL SC SCH ×3 (06:20→21:48)
[2016-12-07 06:42] LABS: MEAN CORPUSCULAR HEMOGLOBIN 30.7 pg (27.0-33.0); MEAN CORPUSCULAR HGB CONC 34.1 g/dl (32.0-36.5); MEAN CORPUSCULAR VOLUME 90.2 fl (80.0-96.0); RED CELL DISTRIBUTION WIDTH 13.2 % (11.5-14.5); WHITE BLOOD COUNT 6.2 K/mm3 (4.0-10.0)
[2016-12-07 07:00] LABS: ANION GAP 8 MEQ/L (8-16); BLOOD UREA NITROGEN 19 MG/DL (7-18); CALCIUM LEVEL 8.1 MG/DL (8.8-10.2); CARBON DIOXIDE LEVEL 25 MEQ/L (21-32); CHLORIDE LEVEL 104 MEQ/L (98-107); CREATININE FOR GFR 0.86 MG/DL (0.70-1.30); GLOMERULAR FILTRATION RATE > 60.0 (>35); GLUCOSE, FASTING 204 MG/DL (83-110); POTASSIUM SERUM 4.1 MEQ/L (3.5-5.1); SODIUM LEVEL 137 MEQ/L (136-145)
[2016-12-07] MEDS: HumaLOG INSULIN (NovoLOG) PER UNIT SC SCH ×4 (07:30→21:47)
[2016-12-07] MEDS: EUCERIN 120GM CREAM TOP SCH ×2 (09:00→21:00)
[2016-12-07] MEDS: DIAPER RELIEF OINT (DESITIN) 60GM TOP SCH (09:00)
[2016-12-07] MEDS: DOCUSATE SODIUM 100 MG CAP PO SCH ×2 (12:38→21:46)
[2016-12-07] MEDS: ATORVASTATIN 20 MG TAB PO SCH (12:38)
[2016-12-07] MEDS: FUROSEMIDE 20 MG TAB PO SCH (12:38)
[2016-12-07] MEDS: HumuLIN (NovoLIN)70/30 INSULIN INJ PER UNIT SC SCH ×2 (12:40→21:48)
[2016-12-07 14:00] VITALS: BP 115/57
--- NOTE | 2016-12-07 16:20 | IPNPDOC ---
Text Note Date of Service The patient was seen on 12/07/16. NOTE Subjective: Patient is an 81 year old male with a PMHx of DLP, HTN, DM2, Chronic venous stasis ulcers, who presented to the ER with complaints of generalized weakness who fell multiple times. In the ER he was found to have uncontrolled DM2 with complaints of polyuria and polydypsia. He also was found to have BESSIE. Patient was seen and examined at bedside. He did not have any new complaints today. Objective: Vitals (See below) General: Lying in bed, no acute distress, comfortable, AAOx3 HEENT: NC, AT CVS: RRR, +S1S2 Lungs: Fair air entry b/l, -w/r/r Abdomen: Soft, ND, NT, +BSx4 Extremities: Chronic venous stasis ulcers bilaterally, no leg tenderness Assessment and plan: 1. Hyperglycemia - likely 2/2 Uncontrolled DM2 - 2/2 non-compliance - Presented with glucose in 700s with polydipsia, polyuria and polyphagia - No acidosis or HHKS - Was given insulin IV in ER - Now on insulin 70/30 - at 26 units BID - will c/w ISS 2. s/p BESSIE - s/p IV fluid hydration 3. s/p Hyponatremia - likely 2/2 dehydration / pseudohyponatremia from hyperglycemia - s/p IV fluid hydratino 4. s/p Hyperkalemia - resolved 5. Generalized weakness - possibly 2/2 dehydration, electrolyte abnormalities and deconditioning - c/w physical therapy 6. DLP - c/w atorvastatin 7. HTN - BP well controlled - c/w Lasix 20 PO QD 8. Normocytic anemia - Hg stable - Will continue to follow 9. DVT prophylaxis - c/w heparin Disposition: - Awaiting [facility] placement, as patient is unable to care for self VS,Fishbone, I+O VS, Fishbone, I+O Laboratory Tests 12/07/16 06:25 Calcium Level 8.1 L, Red Blood Count 3.28 L, Mean Corpuscular Volume 90.2, Mean Corpuscular Hemoglobin 30.7, Mean Corpuscular Hemoglobin Concent 34.1, Red Cell Distribution Width 13.2 Vital Signs Date Time Temp Pulse Resp B/P Pulse Ox O2 Delivery O2 Flow Rate FiO2 12/07/16 06:00 97.4 68 18 127/60 95 Room Air I&O- Last 24 Hours up to 6 AM 12/07/16 05:59 Intake Total 1440 ml Output Total 300 ml Balance 1140 ml ARLENE GARRIDO MD Dec 07, 2016 16:20
[2016-12-07 22:00] VITALS: BP 131/57
--- NOTE | 2016-12-08 03:09 | EDDOCDS ---
Physician Documentation [facility] Name: Adam Bonner Age: 81 yrs Sex: Male : 1935 Arrival Date: 12/05/2016 Time: 17:51 Bed Admit Hold Private MD: Disposition: 12/05/16 22:12 Hospitalization ordered by Jose Decker for Inpatient Admission. Preliminary diagnosis are Weakness, Hyperglycemia, unspecified, Hyperkalemia - Hyponatremia. - Bed requested for 5 Ceja. - Status is Inpatient Admission. cf2 - Condition is Stable. - Problem is new. - Symptoms are unchanged. Historical: - Allergies: no known allergies; - Home Meds: 1. Humulin 70/30 100 unit/mL (70-30) Sub-Q crtg twice a day 2. metformin 500 mg Oral Tb24 2 times per day 3. atorvastatin 40 mg oral tab 1 tab once daily 4. furosemide 20 mg Oral tab 1 tab once daily 5. potassium chloride 10 mEq Oral cpER 1 cap once daily 6. lisinopril 20 mg Oral tab 1 tab once daily - PMHx: Hypercholesterolemia; Hypertension; Diabetes - IDDM: controlled; - PSHx: prostate cancer; Appendectomy; - Social history: Smoking status: Patient states was never smoker of tobacco. Ethnicity: No barriers to communication noted, The patient speaks fluent [place]. - Family history: Not pertinent. - : The pt / caregiver states he / she is not on anticoagulants. Home medication list is obtained from family members. - Exposure Risk Screening:: None identified. Vital Signs: 12/05 17:56 BP 113 / 52; Pulse 96; Resp 16; Temp 97.7(O); Pulse Ox 99% on R/A; Weight 125.19 kg / lr2 276 lbs (R); Height 6 ft. 2 in. (187.96 cm) (R); Pain 0/10; 19:53 BP 101 / 54 (auto/); cf2 19:53 Pulse 82 MON; cf2 19:54 Pulse 80 MON; Pulse Ox 94% ; cf2 20:23 BP 110 / 72 (auto/); cf2 20:23 Temp 98.5; Pulse Ox 94% ; Pain 3/10; cf2 20:24 Pulse 82 MON; Pulse Ox 98% ; cf2 20:53 BP 116 / 58 (auto/); cf2 20:54 Pulse 80 MON; Pulse Ox 93% ; cf2 21:23 BP 111 / 60 (auto/); cf2 21:24 Pulse 84 MON; Pulse Ox 94% ; cf2 21:27 Pulse 82 MON; cf2 21:31 Pulse 84 MON; Pulse Ox 94% ; cf2 21:33 Pulse 82 MON; Pulse Ox 93% ; cf2 21:42 Pulse 84 MON; Pulse Ox 95% ; cf2 21:47 Pulse 86 MON; Pulse Ox 92% ; cf2 21:52 Pulse 86 MON; Pulse Ox 91% ; cf2 21:53 BP 122 / 58 (auto/); cf2 21:54 Pulse 88 MON; cf2 22:23 BP 110 / 54 (auto/); cf2 22:24 Pulse 84 MON; cf2 22:53 BP 115 / 60 (auto/); cf2 22:54 Pulse 82 MON; cf2 23:03 Pulse 86 MON; Pulse Ox 78% ; cf2 23:06 Pulse 84 MON; Pulse Ox 69% ; cf2 23:14 Pulse 90 MON; Pulse Ox 94% ; cf2 23:23 BP 127 / 64 (auto/); cf2 23:24 Pulse 90 MON; Pulse Ox 62% ; cf2 23:32 Pulse 92 MON; Pulse Ox 94% ; cf2 23:38 Pulse 94 MON; Pulse Ox 96% ; cf2 23:43 Pulse 98 MON; Pulse Ox 96% ; cf2 23:47 Pulse 94 MON; Pulse Ox 97% ; cf2 23:52 Pulse 96 MON; Pulse Ox 97% ; cf2 12/06 00:05 Pulse 96 MON; Pulse Ox 96% ; cf2 00:08 Pulse 96 MON; Pulse Ox 95% ; cf2 00:12 Pulse 94 MON; Pulse Ox 95% ; cf2 00:16 Pulse 94 MON; cf2 00:16 BP 109 / 59 (auto/); cf2 00:18 Pulse 94 MON; Pulse Ox 94% ; cf2 00:35 Pulse 92 MON; Pulse Ox 94% ; cf2 00:41 Pulse 92 MON; Pulse Ox 94% ; cf2 00:46 BP 111 / 59 (auto/); cf2 00:46 Pulse 90 MON; Pulse Ox 95% ; cf2 00:52 Pulse 96 MON; cf2 00:56 Pulse 88 MON; Pulse Ox 94% ; cf2 01:03 Pulse 88 MON; Pulse Ox 95% ; cf2 01:08 Pulse 86 MON; Pulse Ox 96% ; cf2 01:16 BP 120 / 65 (auto/); cf2 01:16 Pulse 88 MON; cf2 01:21 Pulse 94 MON; cf2 01:28 Pulse 86 MON; cf2 01:31 Pulse 86 MON; cf2 01:35 Pulse 88 MON; cf2 01:39 Pulse 92 MON; cf2 12/05 17:56 Body Mass Index 35.44 (125.19 kg, 187.96 cm) lr2 MDM: 12/05 18:21 IV Saline Lock ordered. br1 18:21 Horse Riding Coach Or Instructor/Pulse Ox/q 30 min VS ordered. br1 18:21 ECG WITH READING ER PHYS+CARDIAG ordered. EDMS 18:22 CBC with Diff Ordered. EDMS 18:22 BMP Ordered. EDMS 18:34 Tibia/Fibula Ordered. EDMS 18:36 Femur Ordered. EDMS 18:36 CT Head Without Contrast Ordered. EDMS 18:36 CT Spine,Cervical W/o Contrast Ordered. EDMS 18:36 CT Maxilofacial W/out Contrast Ordered. EDMS 18:36 BNP Ordered. EDMS 18:37 -Influenza A&B Rapid Antigen - Nose Ordered. EDMS 18:37 Ultrasound Bilateral LE R/O DVT Ordered. EDMS 18:37 Chest, 2 View (pa\E\lat) Ordered. EDMS 19:39 LIVER PROFILE Ordered. EDMS 19:39 TROPONIN Ordered. EDMS 19:59 NS 0.9% 1000 ml IV at 150 mL/hr continuous ordered. br1 20:13 DIFFERENTIAL NO CHARGE Ordered. EDMS 20:13 PLATELET ESTIMATE Ordered. EDMS 20:23 CBC with Diff Reviewed. br1 20:23 -Influenza A&B Rapid Antigen - Nose Reviewed. br1 20:51 Financial registration complete. zo 20:53 CBC with Diff Reviewed. br1 20:53 BMP Reviewed. br1 20:53 LIVER PROFILE Reviewed. br1 20:53 BNP Reviewed. br1 20:53 TROPONIN Reviewed. br1 20:53 PLATELET ESTIMATE Reviewed. br1 20:53 Insulin Regular Human 5 units IVP once ordered. br1 21:02 [facility] [place] Payment Agreement was scanned into [employer] and attached to record. [id number] 21:48 Misc. Nursing Order ordered. br1 21:50 BED REQUEST+ADM ordered. EDMS 22:05 OSMOLALITY, SERUM Ordered. EDMS 22:21 COMPLETE BLOOD COUNT Ordered. EDMS 22:21 BASIC METABOLIC PROFILE Ordered. EDMS 22:22 PHYSICAL THERAPY EVAL & TREAT ordered. EDMS 22:23 Admission / Observation Status ordered. EDMS 22:23 CONSISTENT CARBOHYDRATES ordered. EDMS 22:50 RENAL PROFILE Ordered. EDMS 23:24 Insulin Regular Human 10 units IVP once ordered. tm5 23:50 BMP Reviewed. br1 23:50 LIVER PROFILE Reviewed. br1 23:50 OSMOLALITY, SERUM Reviewed. br1 23:50 TROPONIN Reviewed. br1 23:50 Ultrasound Bilateral LE R/O DVT Reviewed. br1 12/06 00:04 Admission / Observation Status ordered. EDMS 00:57 Fingerstick Blood Sugar Ordered. EDMS 01:28 [employer]umaLog - Insulin Lispro 14 units Sub-Q once; Dr Decker's order ordered. cf2 01:28 Acetaminophen Tablet 650 mg PO once; Dr Decker orders ordered. cf2 11:59 T-Sheet-- Draft Copy was scanned into [employer] and attached to record. gb 11:59 ECG/EKG was scanned into [employer] and attached to record. gb 11:59 Radiology Report was scanned into [employer] and attached to record. gb 15:06 Radiology Report was scanned into [employer] and attached to record. gb Administered Medications: 12/05 20:05 Drug: NS 0.9% 1000 ml [sodium chloride 0.9 % intravenous solution] Route: IV; Rate: 150 cf2 mL/hr; Site: left antecubital; 21:00 Drug: Insulin Regular Human 5 units [insulin regular human 100 unit/mL injection cf2 solution (0.05 mL)] {Co-Signature: tm5 (Amy Villaseñor RN).} Route: IVP; Site: left antecubital; 23:24 Drug: Insulin Regular Human 10 units [insulin regular human 100 unit/mL injection tm5 solution (0.1 mL)] {Co-Signature: cf2 (Katiana Enciso RN).} Route: IVP; Site: left forearm; 12/06 01:28 Drug: HumaLog - Insulin Lispro 14 units [insulin lispro 100 unit/mL subcutaneous cf2 solution (0.14 mL)] {Co-Signature: tm5 (Amy Villaseñor RN).} Route: Sub-Q; Site: left upper arm; 01:28 Drug: Acetaminophen 650 mg [acetaminophen 325 mg tablet (2 tabs)] Route: PO; cf2 Signatures: Dispatcher [employer] EDMS Caroline Gong, RN RN daChristine Crane, Reg Reg gb Malissa Zelaya Brian, MD MD br1 Yumiko Varner RN RN rs3 Judy Cline, Reg Reg [id number] Katiana Enciso RN RN cf2 Amy Villaseñor RN RN tm5 Amy Villaseñor RN tm5 Katiana Enciso RN cf2 The chart was reviewed and I authenticate all verbal orders and agree with the evaluation and treatment provided.Corrections: (The following items were deleted from the chart) 12/05 19:37 18:36 TROPONIN+LAB ordered. EDMS EDMS 19:37 18:37 LIVER PROFILE+LAB ordered. EDMS EDMS 19:56 18:21 Orthostatic VS ordered. br1 cf2 22:05 21:50 OSMOLALITY, SERUM+LAB ordered. EDMS EDMS Attachments: 21:02 [facility] Payment Agreement [id number] 12/06 11:59 T-Sheet-- Draft Copy gb 11:59 ECG/EKG gb Chart Complete MTDD
--- NOTE | 2016-12-08 03:09 | EDDOCDS ---
Nurse's Notes [facility] Name: Adam Bonner Age: 81 yrs Sex: Male : 1935 Arrival Date: 12/05/2016 Time: 17:51 Bed Admit Hold Private MD: Diagnosis: Weakness;Hyperglycemia, unspecified;Hyperkalemia-Hyponatremia Presentation: 12/05 17:57 Presenting complaint: son states generalized weakness since Friday. Fell and injured rs3 Right temporal area on Friday. lives alone. Has h/o diabetes, heart disease. Adult Sepsis Screening: The patient does not have new or worsening altered mentation. Patient's respiratory rate is less than 22. Systolic blood pressure is greater than 100. Patient has a qSOFA score of 0- Negative Sepsis Screen. Suicide/Homicide risk assessment- the patient denies having any suicidal and/or homicidal ideations and does not present with any other emotional, behavioral or mental health complaints. Status: Patient is not a air deodorizer servicer or dependent. Transition of care: patient was not received from another setting of care. 17:57 Acuity: ANUM Level 3 rs3 17:57 Method Of Arrival: Wheelchair rs3 18:06 Red Flag criteria, patient assessed and taken directly to a bed. ck1 Triage Assessment: 18:02 General: Appears in no apparent distress. Pain: Location: right leg. rs3 Historical: - Allergies: no known allergies; - Home Meds: 1. Humulin 70/30 100 unit/mL (70-30) Sub-Q crtg twice a day 2. metformin 500 mg Oral Tb24 2 times per day 3. atorvastatin 40 mg oral tab 1 tab once daily 4. furosemide 20 mg Oral tab 1 tab once daily 5. potassium chloride 10 mEq Oral cpER 1 cap once daily 6. lisinopril 20 mg Oral tab 1 tab once daily - PMHx: Hypercholesterolemia; Hypertension; Diabetes - IDDM: controlled; - PSHx: prostate cancer; Appendectomy; - Social history: Smoking status: Patient states was never smoker of tobacco. Ethnicity: No barriers to communication noted, The patient speaks fluent Monegasque. - Family history: Not pertinent. - : The pt / caregiver states he / she is not on anticoagulants. Home medication list is obtained from family members. - Exposure Risk Screening:: None identified. Screenin:50 Screening information is obtained from family members. Fall risk: At risk due to prior jjr history of falls, The following interventions are performed due to a positive Fall Risk Screen: added to special handling. Abuse/DV Screen: The patient / caregiver reports he/she is: not in a situation that causes fear, pain or injury. Nutritional screening: No deficits noted. home support is adequate. 19:00 Assistance ADL's: Requires assistance with meal preparation, this assistance is jjr provided by family members, housework, assistance is provided by family members. Advance Directives: There is no active DNR order. Assessment: 18:48 General: Appears in no apparent distress, obese, unkempt. Pain: Location: medial aspect jjr of right calf and right mcdonough. Neurological: Level of Consciousness is awake, obeys commands. EENT: yellow drainage inner corner right eye. Respiratory: Airway is patent Respiratory effort is even, unlabored, Respiratory pattern is regular. Derm: Bruising that is dark purple, on beneath right eye hyperpigmentation to bilateral lower extremities with edema. 19:40 General: Appears in no apparent distress, obese, uncomfortable, unkempt, Behavior is cf2 appropriate for age, cooperative. Pain: Location: right leg and left leg. Neurological: Level of Consciousness is awake, alert, obeys commands, Oriented to person, place, Speech is normal. EENT: Eyes with exudate noted from right inner canthus periorbital ecchymosis. Cardiovascular: No deficits noted. Respiratory: Airway is patent Respiratory effort is even, unlabored, Respiratory pattern is regular. GI: No deficits noted. Abdomen is distended, Bowel sounds present X 4 quads. Abd is soft and non tender. : Reports incontinence since fall on friday. 12/06 00:53 Reassessment: Patient appears in no apparent distress at this time. Patient states cf2 symptoms have improved. Adult Sepsis Screening: The patient does not have new or worsening altered mentation. Patient's respiratory rate is less than 22. Systolic blood pressure is greater than 100. Patient has a qSOFA score of 0- Negative Sepsis Screen. General: Patient with blood sugar 490 -- Dr Jeronimo davis and patient orders received for Lispro 14 units subcut x's 1 dose. Patient medicated per md orders and Tylenol given for leg pain. 01:57 General: Patient with tiago care and incontinence care performed. Patient incontinent of cf2 urine. 01:57 General:. cf2 Vital Signs: 12/05 17:56 BP 113 / 52; Pulse 96; Resp 16; Temp 97.7(O); Pulse Ox 99% on R/A; Weight 125.19 kg lr2 (R); Height 6 ft. 2 in. (187.96 cm) (R); Pain 0/10; 19:53 BP 101 / 54 (auto/); cf2 19:53 Pulse 82 MON; cf2 19:54 Pulse 80 MON; Pulse Ox 94% ; cf2 20:23 BP 110 / 72 (auto/); cf2 20:23 Temp 98.5; Pulse Ox 94% ; Pain 3/10; cf2 20:24 Pulse 82 MON; Pulse Ox 98% ; cf2 20:53 BP 116 / 58 (auto/); cf2 20:54 Pulse 80 MON; Pulse Ox 93% ; cf2 21:23 BP 111 / 60 (auto/); cf2 21:24 Pulse 84 MON; Pulse Ox 94% ; cf2 21:27 Pulse 82 MON; cf2 21:31 Pulse 84 MON; Pulse Ox 94% ; cf2 21:33 Pulse 82 MON; Pulse Ox 93% ; cf2 21:42 Pulse 84 MON; Pulse Ox 95% ; cf2 21:47 Pulse 86 MON; Pulse Ox 92% ; cf2 21:52 Pulse 86 MON; Pulse Ox 91% ; cf2 21:53 BP 122 / 58 (auto/); cf2 21:54 Pulse 88 MON; cf2 22:23 BP 110 / 54 (auto/); cf2 22:24 Pulse 84 MON; cf2 22:53 BP 115 / 60 (auto/); cf2 22:54 Pulse 82 MON; cf2 23:03 Pulse 86 MON; Pulse Ox 78% ; cf2 23:06 Pulse 84 MON; Pulse Ox 69% ; cf2 23:14 Pulse 90 MON; Pulse Ox 94% ; cf2 23:23 BP 127 / 64 (auto/); cf2 23:24 Pulse 90 MON; Pulse Ox 62% ; cf2 23:32 Pulse 92 MON; Pulse Ox 94% ; cf2 23:38 Pulse 94 MON; Pulse Ox 96% ; cf2 23:43 Pulse 98 MON; Pulse Ox 96% ; cf2 23:47 Pulse 94 MON; Pulse Ox 97% ; cf2 23:52 Pulse 96 MON; Pulse Ox 97% ; cf2 12/06 00:05 Pulse 96 MON; Pulse Ox 96% ; cf2 00:08 Pulse 96 MON; Pulse Ox 95% ; cf2 00:12 Pulse 94 MON; Pulse Ox 95% ; cf2 00:16 Pulse 94 MON; cf2 00:16 BP 109 / 59 (auto/); cf2 00:18 Pulse 94 MON; Pulse Ox 94% ; cf2 00:35 Pulse 92 MON; Pulse Ox 94% ; cf2 00:41 Pulse 92 MON; Pulse Ox 94% ; cf2 00:46 BP 111 / 59 (auto/); cf2 00:46 Pulse 90 MON; Pulse Ox 95% ; cf2 00:52 Pulse 96 MON; cf2 00:56 Pulse 88 MON; Pulse Ox 94% ; cf2 01:03 Pulse 88 MON; Pulse Ox 95% ; cf2 01:08 Pulse 86 MON; Pulse Ox 96% ; cf2 01:16 BP 120 / 65 (auto/); cf2 01:16 Pulse 88 MON; cf2 01:21 Pulse 94 MON; cf2 01:28 Pulse 86 MON; cf2 01:31 Pulse 86 MON; cf2 01:35 Pulse 88 MON; cf2 01:39 Pulse 92 MON; cf2 12/05 17:56 Body Mass Index 35.44 (125.19 kg, 187.96 cm) lr2 Vitals: 12/05 17:51 RN notified that patient meets Red Flag criteria. lr2 17:55 Log In Time: December 05, 2016 at 17:51. lr2 ED Course: 17:53 Patient visited by Heidi Perera. lr2 17:53 Patient moved to Waiting lr2 17:54 Patient moved to Pre RCE lr2 17:59 Triage Initiated rs3 18:03 Criselda Marino, RN is Primary Nurse. rs3 18:03 Patient moved to 15 rs3 18:23 John Ball MD is Attending Physician. br1 18:33 Patient visited by John Ball MD. br1 18:43 Patient visited by Alex Rivera. dem1 18:43 EKG done. (by ED staff). Reviewed by John Ball MD. dem1 18:48 Missed attempts: 20 gauge X 1 in left antecubital area, Bleeding controlled, band aid jjr applied, catheter tip intact. 18:50 The patient / caregiver is instructed regarding the plan of care and ED course. jjr 19:00 Patient visited by Criselda Marino RN. jjr 19:15 Primary Nurse role handed off by Criselda Marino, RN cf2 19:15 Katiana Enciso,BYRON is Primary Nurse. cf2 19:15 Patient visited by Katiana Enciso RN. cf2 19:15 Patient visited by Katiana Enciso,BYRON. cf2 19:54 Patient has correct armband on for positive identification. Placed in gown. Bed in low cf2 position. Call light in reach. Side rails up X 1. Side rails up X2. Adult w/ patient. shelter monitor on. Pulse ox on. NIBP on. Property :Personal belongings accompany Pt. Door closed. Noise minimized. Visitors limited. Lights dimmed. Moved to private room. Verbal reassurance given. Warm blanket given. Pillow given. Head of bed elevated. 19:54 Inserted saline lock: 20 gauge in left forearm and blood collected. The patient cf2 tolerated the procedure well. No procedures done that require assistance. 19:55 Patient visited by Katiana Enciso RN. cf2 19:55 TROPONIN Sent. cf2 19:55 LIVER PROFILE Sent. cf2 19:55 -Influenza A&B Rapid Antigen - Nose Sent. cf2 19:56 BMP Sent. cf2 19:56 CBC with Diff Sent. cf2 20:17 Patient visited by Katiana Enciso RN. cf2 20:20 DIFFERENTIAL NO CHARGE Sent. cf2 20:41 Patient visited by Katiana Enciso RN. cf2 21:02 [facility] Payment Agreement was scanned into [id number] and attached to record. ks16 21:34 Patient visited by Katiana Enciso RN. cf2 21:42 Patient visited by Katiana Enciso RN. cf2 21:46 Ultrasound Bilateral LE R/O DVT Returned. EDMS 22:12 Jose Decker DO is Hospitalizing Provider. br1 23:53 Patient moved to Admit Hold sls1 12/06 00:09 Patient visited by Katiana Enciso RN. cf2 01:23 Patient visited by Katiana Enciso,BYRON. cf2 01:57 Patient visited by Katiana Enciso,BYRON. cf2 11:59 T-Sheet-- Draft Copy was scanned into [employer] and attached to record. gb 11:59 ECG/EKG was scanned into [employer] and attached to record. gb 11:59 Radiology Report was scanned into [employer] and attached to record. gb 15:06 Radiology Report was scanned into [employer] and attached to record. gb Administered Medications: 12/05 20:05 Drug: NS 0.9% 1000 ml [sodium chloride 0.9 % intravenous solution] Route: IV; Rate: 150 cf2 mL/hr; Site: left antecubital; 21:00 Drug: Insulin Regular Human 5 units [insulin regular human 100 unit/mL injection cf2 solution (0.05 mL)] {Co-Signature: tm5 (Amy Villaseñor RN).} Route: IVP; Site: left antecubital; 23:24 Drug: Insulin Regular Human 10 units [insulin regular human 100 unit/mL injection tm5 solution (0.1 mL)] {Co-Signature: cf2 (Katiana Enciso RN).} Route: IVP; Site: left forearm; 12/06 01:28 Drug: HumaLog - Insulin Lispro 14 units [insulin lispro 100 unit/mL subcutaneous cf2 solution (0.14 mL)] {Co-Signature: tm5 (Amy Villaseñor RN).} Route: Sub-Q; Site: left upper arm; 01:28 Drug: Acetaminophen 650 mg [acetaminophen 325 mg tablet (2 tabs)] Route: PO; cf2 Order Results: Lab Order: CBC with Diff; SPEC'M 12/05/16 19:50 Test: WHITE BLOOD COUNT; Value: 9.0; Range: 4.0-10.0; Units: K/mm3; Status: F Test: RED BLOOD COUNT; Value: 4.17; Range: 4.30-6.10; Abnormal: Below low normal; Units: M/mm3; Status: F Test: HEMOGLOBIN; Value: 12.1; Range: 14.0-18.0; Abnormal: Below low normal; Units: g/dl; Status: F Test: HEMATOCRIT; Value: 38.2; Range: 42.0-52.0; Abnormal: Below low normal; Units: %; Status: F Test: MEAN CORPUSCULAR VOLUME; Value: 91.5; Range: 80.0-96.0; Units: fl; Status: F Test: MEAN CORPUSCULAR HEMOGLOBIN; Value: 29.0; Range: 27.0-33.0; Units: pg; Status: F Test: MEAN CORPUSCULAR HGB CONC; Value: 31.7; Range: 32.0-36.5; Abnormal: Below low normal; Units: g/dl; Status: F Test: RED CELL DISTRIBUTION WIDTH; Value: 13.0; Range: 11.5-14.5; Units: %; Status: F Test: PLATELET COUNT, AUTOMATED; Value: 238; Range: 150-450; Units: k/mm3; Status: F Test: NEUTROPHILS; Value: 84; Range: 35-75; Abnormal: Above high normal; Units: %; Status: F Test: LYMPHOCYTES; Value: 8; Range: 16-52; Abnormal: Below low normal; Units: %; Status: F Test: MONOCYTES; Value: 6; Range: 0-8; Units: %; Status: F Test: EOSINOPHILS; Value: 2; Range: 0-5; Units: %; Status: F Test: PLATELET CLUMPS; Value: SMALL AMT; Status: F Lab Order: [facility]; SPEC'M 12/05/16 19:50 Test: GLUCOSE, FASTING; Value: 682; Range: 83-110; Abnormal: Above upper panic limits; Units: MG/DL; Status: F Test: BLOOD UREA NITROGEN; Value: 23; Range: 7-18; Abnormal: Above high normal; Units: MG/DL; Status: F Test: CREATININE FOR GFR; Value: 1.41; Range: 0.70-1.30; Abnormal: Above high normal; Units: MG/DL; Status: F Test: GLOMERULAR FILTRATION RATE; Value: 51.4; Range: >35; Status: F Test: SODIUM LEVEL; Value: 126; Range: 136-145; Abnormal: Below low normal; Units: MEQ/L; Status: F Test: POTASSIUM SERUM; Value: 5.2; Range: 3.5-5.1; Abnormal: Above high normal; Units: MEQ/L; Status: F Test: CHLORIDE LEVEL; Value: 90; Range: 98-107; Abnormal: Below low normal; Units: MEQ/L; Status: F Test: CARBON DIOXIDE LEVEL; Value: 27; Range: 21-32; Units: MEQ/L; Status: F Test: ANION GAP; Value: 9; Range: 8-16; Units: MEQ/L; Status: F Test: CALCIUM LEVEL; Value: 8.8; Range: 8.8-10.2; Units: MG/DL; Status: F Test Note: ; Units are mL/min/1.73 m2 Chronic Kidney Disease Staging per NKF: Stage I & II GFR >=60 Normal to Mildly Decreased Stage III GFR 30-59 Moderately Decreased Stage IV GFR 15-29 Severely Decreased Stage V GFR <15 Very Little GFR Left ESRD GFR <15 on ABSTRACTOR Lab Order: BNP; SPEC'M 12/05/16 19:50 Test: BRAIN NATRIURETIC PEPTIDE; Value: 20.3; Range: <100; Units: PG/ML; Status: F Lab Order: -Influenza A&B Rapid Antigen - Nose; SPEC'M 12/05/16 19:50 Test: INFLUENZA A RAPID SCR by ICA; Value: INFLUENZA A RESULTS NEGATIVE; Status: F Test: INFLUENZA A RAPID SCR by ICA; Value: Comments:; Status: F Test: INFLUENZA B RAPID SCR by ICA; Value: INFLUENZA B RESULTS NEGATIVE; Status: F Test Note: ; The Influenza test is a direct rapid immunoassay for the qualitative detection of Influenza viral antigen. Cell culture (Viral Culture) testing should be considered to confirm NEGATIVE results and to assist in detecting other viruses that can provide similar clinical symptoms. Please contact the lab within 24 hours ([phone]) if confirmatory testing is desired. Lab Order: LIVER PROFILE; SPEC'M 12/05/16 19:50 Test: AST/SGOT; Value: 15; Range: 15-37; Units: U/L; Status: F Test: ALT/SGPT; Value: 18; Range: 12-78; Units: U/L; Status: F Test: ALKALINE PHOSPHATASE; Value: 205; Range: 45-117; Abnormal: Above high normal; Units: U/L; Status: F Test: BILIRUBIN,TOTAL; Value: 0.5; Range: 0.2-1.0; Units: MG/DL; Status: F Test: BILIRUBIN,DIRECT; Value: 0.2; Range: 0.0-0.2; Units: MG/DL; Status: F Test: TOTAL PROTEIN; Value: 7.9; Range: 6.4-8.2; Units: GM/DL; Status: F Test: ALBUMIN; Value: 2.7; Range: 3.2-5.2; Abnormal: Below low normal; Units: GM/DL; Status: F Test: ALBUMIN/GLOBULIN RATIO; Value: 0.52; Range: 1.00-1.93; Abnormal: Below low normal; Status: F Lab Order: TROPONIN; [facility] 12/05/16 19:50 Test: TROPONIN I; Value: < 0.02; Range: < 0.10; Units: NG/ML; Status: F Test Note: ; Troponin I Reference Interval for Trendsetters LOCI: 99th Percentile= 0.00-0.045 ng/ml Risk Stratification: <= 0.10 ng/ml Decreased Risk for Adverse Clinical Events. 0.10-1.50 ng/ml Increased Risk for Adverse Clinical Events. Evaluation of additional criterion and/or repeat testing in 2-6 hours is suggested to rule out myocardial damage. >= 1.50 ng/ml Indicative of Myocardial Injury. Lab Order: PLATELET ESTIMATE; [facility]12/05/16 19:50 Test: PLATELET ESTIMATE; Value: NORMAL; Range: NORMAL; Status: F Lab Order: OSMOLALITY, SERUM; [facility] 12/05/16 19:50 Test: OSMOLALITY SERUM; Value: 307; Range: 280-301; Abnormal: Above high normal; Units: MOSM/KG; Status: F Lab Order: RENAL PROFILE; [facility] 12/05/16 23:18 Test: GLUCOSE, FASTING; Value: 608; Range: 83-110; Abnormal: Above upper panic limits; Units: MG/DL; Status: F Test: BLOOD UREA NITROGEN; Value: 23; Range: 7-18; Abnormal: Above high normal; Units: MG/DL; Status: F Test: CREATININE FOR GFR; Value: 1.24; Range: 0.70-1.30; Units: MG/DL; Status: F Test: GLOMERULAR FILTRATION RATE; Value: 59.6; Range: >35; Status: F Test: SODIUM LEVEL; Value: 129; Range: 136-145; Abnormal: Below low normal; Units: MEQ/L; Status: F Test: POTASSIUM SERUM; Value: 5.0; Range: 3.5-5.1; Units: MEQ/L; Status: F Test: CHLORIDE LEVEL; Value: 94; Range: 98-107; Abnormal: Below low normal; Units: MEQ/L; Status: F Test: CARBON DIOXIDE LEVEL; Value: 29; Range: 21-32; Units: MEQ/L; Status: F Test: ANION GAP; Value: 6; Range: 8-16; Abnormal: Below low normal; Units: MEQ/L; Status: F Test: CALCIUM LEVEL; Value: 8.3; Range: 8.8-10.2; Abnormal: Below low normal; Units: MG/DL; Status: F Test: PHOSPHORUS LEVEL; Value: 3.4; Range: 2.5-4.9; Units: MG/DL; Status: F Test: ALBUMIN; Value: 2.5; Range: 3.2-5.2; Abnormal: Below low normal; Units: GM/DL; Status: F Test Note: ; Units are mL/min/1.73 m2 Chronic Kidney Disease Staging per NKF: Stage I & II GFR >=60 Normal to Mildly Decreased Stage III GFR 30-59 Moderately Decreased Stage IV GFR 15-29 Severely Decreased Stage V GFR <15 Very Little GFR Left ESRD GFR <15 on ABSTRACTOR Lab Order: Fingerstick Blood Sugar; SPEC'M 12/06/16 00:50 Test: BEDSIDE GLUCOSE; Value: 490; Range: 83-110; Abnormal: Above high normal; Units: MG/DL; Status: F Radiology Order: Ultrasound Bilateral LE R/O DVT Test: Ultrasound Bilateral LE R/O DVT REASON FOR EXAMINATION: Deformity/Swelling; ; Clinical history: Pain, swelling.; Findings: The common femoral, superficial femoral, popliteal, and other deep venous structures compre; ss normally and demonstrate normal color Doppler flow. Normal venous waveforms with augmentation are; seen.; Impression:; No evidence of deep vein thrombosis in either femoral popliteal venous system.; ; Outcome: 12/05 19:54 CT Study completed. cf2 22:12 Decision to Hospitalize by Provider. br1 12/06 02:04 Discharge Assessment: Patient awake, alert and oriented x 3. No cognitive and/or cf2 functional deficits noted. Patient verbalized understanding of disposition instructions. Patient awake and alert. Oriented to person, place and time. patient administered narcotics - no. The following High Risk Discharge criteria are identified: Yes, Admitted to Floor. Condition: stable Condition: improved. 02:07 Patient left the ED. cf2 Signatures: Dispatcher [employer] EDMS Christine Juan, Reg Reg gb Tiffany Costello,RN RN ck1 John Ball MD MD br1 Criselda Marino, RN RN jjr Yumiko Varner,RN RN rs3 Meagan George, RN RN sls1 Alex Rivera1 Judy Cline, Reg Reg ks16 Katiana Enciso,RN RN cf2 Amy Villaseñor RN RN tm5 Heidi Perera 2 Amy Villaseñor RN tm5 Katiana Enciso RN cf2 Chart Complete [facility]
[2016-12-08] MEDS: HEPARIN SOD (PORCINE) 5000 UNITS/ML VIAL SC SCH ×3 (05:40→21:25)
[2016-12-08 06:00] VITALS: BP 135/63
[2016-12-08 06:57] LABS: MEAN CORPUSCULAR HEMOGLOBIN 30.3 pg (27.0-33.0); MEAN CORPUSCULAR HGB CONC 33.5 g/dl (32.0-36.5); MEAN CORPUSCULAR VOLUME 90.3 fl (80.0-96.0); WHITE BLOOD COUNT 6.4 K/mm3 (4.0-10.0)
[2016-12-08 07:07] LABS: ANION GAP 11 MEQ/L (8-16); BLOOD UREA NITROGEN 17 MG/DL (7-18); CALCIUM LEVEL 8.7 MG/DL (8.8-10.2); CARBON DIOXIDE LEVEL 23 MEQ/L (21-32); CHLORIDE LEVEL 103 MEQ/L (98-107); CREATININE FOR GFR 0.85 MG/DL (0.70-1.30); GLOMERULAR FILTRATION RATE > 60.0 (>35); GLUCOSE, FASTING 221 MG/DL (83-110); SODIUM LEVEL 137 MEQ/L (136-145)
[2016-12-08] MEDS: HumaLOG INSULIN (NovoLOG) PER UNIT SC SCH ×4 (08:31→21:26)
[2016-12-08] MEDS: DOCUSATE SODIUM 100 MG CAP PO SCH ×2 (08:31→21:25)
[2016-12-08] MEDS: HumuLIN (NovoLIN)70/30 INSULIN INJ PER UNIT SC SCH ×2 (08:31→21:26)
[2016-12-08] MEDS: FUROSEMIDE 20 MG TAB PO SCH (08:31)
[2016-12-08] MEDS: DIAPER RELIEF OINT (DESITIN) 60GM TOP SCH (08:32)
[2016-12-08] MEDS: EUCERIN 120GM CREAM TOP SCH (08:32)
[2016-12-08] MEDS: ATORVASTATIN 20 MG TAB PO SCH (08:51)
--- NOTE | 2016-12-08 13:54 | IPNPDOC ---
Text Note Date of Service The patient was seen on 12/08/16. NOTE Subjective: Patient is an 81 year old male with a PMHx of DLP, HTN, DM2, Chronic venous stasis ulcers, who presented to the ER with complaints of generalized weakness who fell multiple times. In the ER he was found to have uncontrolled DM2 with complaints of polyuria and polydipsia. He also was found to have BESSIE. Patient was seen and examined at bedside. He did not have any new complaints today. Objective: Vitals (See below) General: Lying in bed, no acute distress, comfortable, AAOx3 HEENT: NC, AT CVS: RRR, +S1S2 Lungs: Fair air entry b/l, -w/r/r Abdomen: Soft, ND, NT, +BSx4 Extremities: Chronic venous stasis ulcers bilaterally, no leg tenderness Assessment and plan: 1. Hyperglycemia - likely 2/2 Uncontrolled DM2 - 2/2 non-compliance - Presented with glucose in 700s with polydipsia, polyuria and polyphagia - No acidosis or HHKS - Was given insulin IV in ER - Now on insulin 70/30 - increased to 30 units BID - will c/w ISS 2. Chronic venous stasis ulcers - Appeared to be chronic changes with right leg with skin breaks and break down - no evidence of infection - will c/w local wound care and dressing changes 3. s/p BESSIE - s/p IV fluid hydration 4. s/p Hyponatremia - likely 2/2 dehydration / pseudohyponatremia from hyperglycemia - s/p IV fluid hydration 5. s/p Hyperkalemia - resolved 6. Generalized weakness - possibly 2/2 dehydration, electrolyte abnormalities and deconditioning - c/w physical therapy 7. DLP - c/w atorvastatin 8. HTN - BP well controlled - c/w Lasix 20 PO QD 9. Normocytic anemia - Hg stable - Will continue to follow 10. DVT prophylaxis - c/w heparin Disposition: - Awaiting medical terminologist placement, as patient is unable to care for self VS,Gardenia, I+O VS, Amparoe, I+O Laboratory Tests 12/08/16 06:34 Calcium Level 8.7 L, Red Blood Count 3.56 L, Mean Corpuscular Volume 90.3, Mean Corpuscular Hemoglobin 30.3, Mean Corpuscular Hemoglobin Concent 33.5, Red Cell Distribution Width 13.0 Vital Signs Date Time Temp Pulse Resp B/P Pulse Ox O2 Delivery O2 Flow Rate FiO2 12/08/16 06:00 97.8 72 20 135/63 94 Room Air I&O- Last 24 Hours up to 6 AM 12/08/16 06:00 Intake Total 1878 ml Balance 1878 ml ARLENE GARRIDO MD Dec 08, 2016 13:54
[2016-12-08 14:00] VITALS: BP 137/65
[2016-12-08 22:00] VITALS: BP 121/66
[2016-12-09] MEDS: EUCERIN 120GM CREAM TOP SCH ×3 (00:19→20:49)
[2016-12-09 06:00] VITALS: BP 143/66
[2016-12-09] MEDS: HEPARIN SOD (PORCINE) 5000 UNITS/ML VIAL SC SCH ×3 (06:37→20:48)
[2016-12-09 07:07] LABS: MEAN CORPUSCULAR HEMOGLOBIN 30.8 pg (27.0-33.0); MEAN CORPUSCULAR HGB CONC 33.8 g/dl (32.0-36.5); WHITE BLOOD COUNT 7.1 K/mm3 (4.0-10.0)
[2016-12-09 07:21] LABS: ANION GAP 8 MEQ/L (8-16); BLOOD UREA NITROGEN 17 MG/DL (7-18); CALCIUM LEVEL 8.2 MG/DL (8.8-10.2); CARBON DIOXIDE LEVEL 26 MEQ/L (21-32); CHLORIDE LEVEL 104 MEQ/L (98-107); CREATININE FOR GFR 0.85 MG/DL (0.70-1.30); GLOMERULAR FILTRATION RATE > 60.0 (>35); GLUCOSE, FASTING 191 MG/DL (83-110); POTASSIUM SERUM 4.1 MEQ/L (3.5-5.1); SODIUM LEVEL 138 MEQ/L (136-145)
[2016-12-09] MEDS: ATORVASTATIN 20 MG TAB PO SCH (10:26)
[2016-12-09] MEDS: FUROSEMIDE 20 MG TAB PO SCH (10:26)
[2016-12-09] MEDS: DOCUSATE SODIUM 100 MG CAP PO SCH ×2 (10:26→20:48)
[2016-12-09] MEDS: HumaLOG INSULIN (NovoLOG) PER UNIT SC SCH ×4 (10:27→20:49)
[2016-12-09] MEDS: DIAPER RELIEF OINT (DESITIN) 60GM TOP SCH (10:28)
[2016-12-09] MEDS: HumuLIN (NovoLIN)70/30 INSULIN INJ PER UNIT SC SCH ×2 (10:28→20:48)
--- NOTE | 2016-12-09 12:23 | REP ---
RIGHT LOWER EXTREMITY DOPPLER VENOUS ULTRASOUND AND VENOUS REFLUX ULTRASOUND: 12/09/2016. Comparison: Bilateral lower extremity venous ultrasound 12/05/2016. Clinical history: Evaluate for DVT, rule out venous insufficiency. Standing ultrasound requested. Technique: The deep venous system of the right lower extremity is evaluated with martinez scale imaging, compression ultrasound, color imaging and duplex Doppler interrogation. Examination from the groin through the popliteal fossa into the proximal calf. Findings: There is full compressibility from the common femoral vein in the inguinal region through the popliteal vein. Color imaging confirms patency throughout the course of the deep venous system. There is respiratory variation and augmented flow at all levels. Impression: 1. No Doppler venous ultrasound evidence of DVT in the right lower extremity. RIGHT LOWER EXTREMITY VENOUS REFLUX ULTRASOUND: CFV: Positive reflux. Anterior accessory GSV: Not present . GSV at saphenous junction: Positive reflux. AP diameter 7.4 mm. 3.6 sec. GSV at midthigh: Positive reflux. AP 5.3 mm, 2.2 sec. GSV at knee: No reflex: AP, 4 mm. SFV proximal: Positive reflux. SFV mid: Positive reflux. SFV distal: Positive reflux. Popliteal: Positive reflux. LSV: No reflux. AP diameter 3.2 mm. Reflux was seen throughout the deep and superficial system. The collateral off the mid GSV shown with reflux. The grants director at the mid GSV is without reflux. It appears that the GSV may be amenable to EVLT. Signed by Dane Estevez MD 12/09/2016 05:20 P
[2016-12-09 14:00] VITALS: BP 144/65
--- NOTE | 2016-12-09 14:09 | IPNPDOC ---
Text Note Date of Service The patient was seen on 12/09/16. NOTE Subjective: Patient is an 81 year old male with a PMHx of DLP, HTN, DM2, Chronic venous stasis ulcers, who presented to the ER with complaints of generalized weakness who fell multiple times. In the ER he was found to have uncontrolled DM2 with complaints of polyuria and polydipsia. He also was found to have BESSIE. Patient was seen and examined at bedside. He is continuing with physical therapy - he does not have any complaints today. Objective: Vitals (See below) General: Lying in bed, no acute distress, comfortable, AAOx3 HEENT: NC, AT CVS: RRR, +S1S2 Lungs: Fair air entry b/l, -w/r/r Abdomen: Soft, ND, NT, +BSx4 Extremities: Chronic venous stasis ulcers bilaterally, no leg tenderness Assessment and plan: 1. Hyperglycemia - likely 2/2 Uncontrolled DM2 - 2/2 non-compliance - Presented with glucose in 700s with polydipsia, polyuria and polyphagia - No acidosis or HHKS - Was given insulin IV in ER - Now on insulin 70/30 - will c/w 30 units BID - will c/w ISS 2. Chronic venous stasis ulcers - Appeared to be chronic changes with right leg with skin breaks and break down - no evidence of infection - will c/w local wound care and dressing changes 3. s/p BESSIE - s/p IV fluid hydration 4. s/p Hyponatremia - likely 2/2 dehydration / pseudohyponatremia from hyperglycemia - s/p IV fluid hydration 5. s/p Hyperkalemia - resolved 6. Generalized weakness - possibly 2/2 dehydration, electrolyte abnormalities and deconditioning - c/w physical therapy 7. DLP - c/w atorvastatin 8. HTN - BP well controlled - c/w Lasix 20 PO QD 9. Normocytic anemia - Hg stable - Will continue to follow 10. DVT prophylaxis - c/w heparin Disposition: - Awaiting exterminator helper placement, as patient is unable to care for self - Will transfer the patient to [facility],[place], I+O [facility], I+O Laboratory Tests 12/09/16 06:53 Calcium Level 8.2 L, Red Blood Count 3.58 L, Mean Corpuscular Volume 91.0, Mean Corpuscular Hemoglobin 30.8, Mean Corpuscular Hemoglobin Concent 33.8, Red Cell Distribution Width 13.0 Vital Signs Date Time Temp Pulse Resp B/P Pulse Ox O2 Delivery O2 Flow Rate FiO2 12/09/16 06:00 96.4 65 18 143/66 95 Room Air I&O- Last 24 Hours up to 6 AM 12/09/16 06:00 Intake Total 1120 ml Output Total 100 ml Balance 1020 ml ARLENE GARRIDO MD Dec 09, 2016 14:09
[2016-12-10] MEDS: HEPARIN SOD (PORCINE) 5000 UNITS/ML VIAL SC SCH ×3 (06:10→21:26)
[2016-12-10 07:04] LABS: MEAN CORPUSCULAR HEMOGLOBIN 30.5 pg (27.0-33.0); MEAN CORPUSCULAR HGB CONC 33.5 g/dl (32.0-36.5); WHITE BLOOD COUNT 6.1 K/mm3 (4.0-10.0)
[2016-12-10 07:27] LABS: ANION GAP 6 MEQ/L (8-16); BLOOD UREA NITROGEN 15 MG/DL (7-18); CALCIUM LEVEL 8.2 MG/DL (8.8-10.2); CARBON DIOXIDE LEVEL 29 MEQ/L (21-32); CHLORIDE LEVEL 104 MEQ/L (98-107); CREATININE FOR GFR 0.87 MG/DL (0.70-1.30); GLOMERULAR FILTRATION RATE > 60.0 (>35); GLUCOSE, FASTING 143 MG/DL (83-110); POTASSIUM SERUM 4.2 MEQ/L (3.5-5.1); SODIUM LEVEL 139 MEQ/L (136-145)
[2016-12-10] MEDS: HumuLIN (NovoLIN)70/30 INSULIN INJ PER UNIT SC SCH ×2 (09:00→21:27)
[2016-12-10] MEDS: DOCUSATE SODIUM 100 MG CAP PO SCH ×2 (09:01→21:27)
[2016-12-10] MEDS: HumaLOG INSULIN (NovoLOG) PER UNIT SC SCH ×4 (09:01→21:26)
[2016-12-10] MEDS: FUROSEMIDE 20 MG TAB PO SCH (09:01)
[2016-12-10] MEDS: ATORVASTATIN 20 MG TAB PO SCH (09:01)
[2016-12-10] MEDS: EUCERIN 120GM CREAM TOP SCH ×2 (09:02→21:27)
[2016-12-10] MEDS: DIAPER RELIEF OINT (DESITIN) 60GM TOP SCH (09:02)
[2016-12-10 14:00] VITALS: BP 114/55
[2016-12-10 22:00] VITALS: BP 141/67
[2016-12-11] MEDS: HEPARIN SOD (PORCINE) 5000 UNITS/ML VIAL SC SCH ×3 (06:00→22:53)
[2016-12-11 07:16] LABS: MEAN CORPUSCULAR HEMOGLOBIN 30.3 pg (27.0-33.0); MEAN CORPUSCULAR HGB CONC 33.5 g/dl (32.0-36.5); MEAN CORPUSCULAR VOLUME 90.4 fl (80.0-96.0); RED CELL DISTRIBUTION WIDTH 12.8 % (11.5-14.5); WHITE BLOOD COUNT 5.5 K/mm3 (4.0-10.0)
[2016-12-11 07:24] LABS: ANION GAP 9 MEQ/L (8-16); BLOOD UREA NITROGEN 17 MG/DL (7-18); CALCIUM LEVEL 8.3 MG/DL (8.8-10.2); CARBON DIOXIDE LEVEL 24 MEQ/L (21-32); CHLORIDE LEVEL 104 MEQ/L (98-107); CREATININE FOR GFR 0.84 MG/DL (0.70-1.30); GLOMERULAR FILTRATION RATE > 60.0 (>35); GLUCOSE, FASTING 238 MG/DL (83-110); POTASSIUM SERUM 4.4 MEQ/L (3.5-5.1); SODIUM LEVEL 137 MEQ/L (136-145)
[2016-12-11] MEDS: HumaLOG INSULIN (NovoLOG) PER UNIT SC SCH ×4 (08:23→22:55)
[2016-12-11] MEDS: DIAPER RELIEF OINT (DESITIN) 60GM TOP SCH (08:24)
[2016-12-11] MEDS: HumuLIN (NovoLIN)70/30 INSULIN INJ PER UNIT SC SCH ×2 (08:24→22:55)
[2016-12-11] MEDS: ATORVASTATIN 20 MG TAB PO SCH (08:24)
[2016-12-11] MEDS: DOCUSATE SODIUM 100 MG CAP PO SCH ×2 (08:24→22:52)
[2016-12-11] MEDS: EUCERIN 120GM CREAM TOP SCH ×2 (08:24→22:56)
[2016-12-11] MEDS: FUROSEMIDE 20 MG TAB PO SCH (08:24)
--- NOTE | 2016-12-11 12:14 | REP ---
Clinical: Right upper extremity swelling . Technique: Ahuja scale and color Doppler evaluation using linear high frequency transducer. Findings: Ultrasound examination of the right upper extremity deep venous structures including the jugular, axillary, subclavian, cephalic, brachial and basilic veins demonstrates normal compressibility flow and wave patterns in response to respiration and augmentation. There is no evidence for deep venous thrombosis. Impression: No evidence for deep venous thrombosis. Signed by Oleg Braxton MD 12/11/2016 12:06 P
[2016-12-11] MEDS: CEPHALEXIN 500 MG CAP PO SCH ×3 (13:00→22:52)
[2016-12-11 22:00] VITALS: BP 114/60
[2016-12-12 06:00] VITALS: BP 136/65
[2016-12-12] MEDS: HEPARIN SOD (PORCINE) 5000 UNITS/ML VIAL SC SCH ×3 (06:28→20:34)
[2016-12-12] MEDS: CEPHALEXIN 500 MG CAP PO SCH ×3 (06:28→17:17)
[2016-12-12 06:51] LABS: MEAN CORPUSCULAR HGB CONC 32.9 g/dl (32.0-36.5); RED CELL DISTRIBUTION WIDTH 13.1 % (11.5-14.5); WHITE BLOOD COUNT 5.8 K/mm3 (4.0-10.0)
[2016-12-12 06:59] LABS: ANION GAP 7 MEQ/L (8-16); BLOOD UREA NITROGEN 18 MG/DL (7-18); CARBON DIOXIDE LEVEL 27 MEQ/L (21-32); CHLORIDE LEVEL 104 MEQ/L (98-107); CREATININE FOR GFR 0.82 MG/DL (0.70-1.30); GLOMERULAR FILTRATION RATE > 60.0 (>35); GLUCOSE, FASTING 169 MG/DL (83-110); POTASSIUM SERUM 4.5 MEQ/L (3.5-5.1); SODIUM LEVEL 138 MEQ/L (136-145)
[2016-12-12] MEDS: HumaLOG INSULIN (NovoLOG) PER UNIT SC SCH ×4 (07:30→20:35)
[2016-12-12 08:45] VITALS: BP 138/67
[2016-12-12] MEDS: EUCERIN 120GM CREAM TOP SCH ×2 (09:00→20:35)
[2016-12-12] MEDS: DIAPER RELIEF OINT (DESITIN) 60GM TOP SCH (09:00)
[2016-12-12] MEDS: ATORVASTATIN 20 MG TAB PO SCH (09:02)
[2016-12-12] MEDS: HumuLIN (NovoLIN)70/30 INSULIN INJ PER UNIT SC SCH ×2 (09:03→20:35)
[2016-12-12] MEDS: DOCUSATE SODIUM 100 MG CAP PO SCH ×2 (09:03→20:34)
[2016-12-12] MEDS: FUROSEMIDE 20 MG TAB PO SCH (09:03)
[2016-12-12 09:48] VITALS: BP 138/67
[2016-12-12 10:06] VITALS: BP 129/60
[2016-12-12 14:00] VITALS: BP 116/54
[2016-12-12 22:00] VITALS: BP 141/64
[2016-12-13] MEDS: CEPHALEXIN 500 MG CAP PO SCH ×4 (01:03→18:51)
[2016-12-13] MEDS: HEPARIN SOD (PORCINE) 5000 UNITS/ML VIAL SC SCH ×3 (05:43→21:25)
[2016-12-13 06:00] VITALS: BP 119/57
[2016-12-13] MEDS: HumaLOG INSULIN (NovoLOG) PER UNIT SC SCH ×4 (07:43→21:27)
[2016-12-13 08:50] VITALS: BP 109/55
[2016-12-13] MEDS: ATORVASTATIN 20 MG TAB PO SCH (09:13)
[2016-12-13] MEDS: EUCERIN 120GM CREAM TOP SCH ×2 (09:14→21:25)
[2016-12-13] MEDS: FUROSEMIDE 20 MG TAB PO SCH (09:14)
[2016-12-13] MEDS: DIAPER RELIEF OINT (DESITIN) 60GM TOP SCH (09:14)
[2016-12-13] MEDS: DOCUSATE SODIUM 100 MG CAP PO SCH ×2 (09:14→21:25)
[2016-12-13] MEDS: HumuLIN (NovoLIN)70/30 INSULIN INJ PER UNIT SC SCH ×2 (09:15→21:27)
[2016-12-13 13:50] VITALS: BP 120/80
[2016-12-13 22:00] VITALS: BP 143/65
[2016-12-14] MEDS: CEPHALEXIN 500 MG CAP PO SCH ×5 (01:09→23:21)
[2016-12-14 06:00] VITALS: BP 115/57
[2016-12-14] MEDS: HEPARIN SOD (PORCINE) 5000 UNITS/ML VIAL SC SCH ×3 (06:14→21:27)
[2016-12-14] MEDS: HumaLOG INSULIN (NovoLOG) PER UNIT SC SCH ×4 (08:03→21:27)
[2016-12-14] MEDS: HumuLIN (NovoLIN)70/30 INSULIN INJ PER UNIT SC SCH ×2 (08:03→21:27)
[2016-12-14] MEDS: ATORVASTATIN 20 MG TAB PO SCH (08:04)
[2016-12-14] MEDS: FUROSEMIDE 20 MG TAB PO SCH (08:04)
[2016-12-14] MEDS: DOCUSATE SODIUM 100 MG CAP PO SCH ×2 (08:04→21:27)
[2016-12-14] MEDS: EUCERIN 120GM CREAM TOP SCH ×2 (08:05→21:28)
[2016-12-14] MEDS: DIAPER RELIEF OINT (DESITIN) 60GM TOP SCH (08:05)
[2016-12-14 14:00] VITALS: BP 123/58
[2016-12-14 22:00] VITALS: BP 127/62
[2016-12-15] MEDS: HEPARIN SOD (PORCINE) 5000 UNITS/ML VIAL SC SCH ×3 (05:41→21:19)
[2016-12-15] MEDS: CEPHALEXIN 500 MG CAP PO SCH ×4 (05:41→23:44)
[2016-12-15] MEDS: ATORVASTATIN 20 MG TAB PO SCH (08:08)
[2016-12-15] MEDS: HumuLIN (NovoLIN)70/30 INSULIN INJ PER UNIT SC SCH ×2 (08:08→21:45)
[2016-12-15] MEDS: HumaLOG INSULIN (NovoLOG) PER UNIT SC SCH ×4 (08:08→21:19)
[2016-12-15] MEDS: FUROSEMIDE 20 MG TAB PO SCH (08:08)
[2016-12-15] MEDS: DOCUSATE SODIUM 100 MG CAP PO SCH ×2 (08:08→21:19)
[2016-12-15] MEDS: DIAPER RELIEF OINT (DESITIN) 60GM TOP SCH (08:09)
[2016-12-15] MEDS: EUCERIN 120GM CREAM TOP SCH ×2 (08:09→21:20)
--- NOTE | 2016-12-15 13:45 | IPNPDOC ---
Subjective Date Seen The patient was seen on 12/15/16. Subjective Chief Complaint/HPI The patient is a 81-year-old male admitted with a reason for visit of Acute Hyperkalemia Hyperglycemia. General: Denies: Chills, Night Sweats Constitutional: Denies: Chills, Fever Eyes: Denies: Pain, Vision change ENT: Denies: Ear Pain, Head Aches Skin: Denies: Lesions, Rash Pulmonary: Denies: Cough, Dyspnea Cardiovascular: Denies: Chest Pain, Palpitations Gastrointestinal: Denies: Nausea, Vomiting Genitourinary: Denies: Dysuria, Frequency Hematologic: Denies: Bleeding Excessively, Bruising Objective Physical Examination General Exam: Positive: Alert, Cooperative, No Acute Distress ENT Exam: Positive: Atraumatic, Mucous membr. moist/pink Chest Exam: Positive: Clear to auscultation, Normal air movement Heart Exam: Positive: Normal S1, Normal S2, Rate Normal Abdomen Exam: Positive: Soft, Negative: Tenderness Extremity Exam: Positive: Other (RUE with decreased erythema, tenderness. No active purulant drainage.), Negative: Tenderness Assessment /Plan Plan/VTE VTE Prophylaxis Ordered?: Yes Plan Diabetes Mellitus Cont on insulin 70/30, 30 units BID Will continue on ISS for additional coverage Patient's blood sugar levels appear to be well controlled RUE swelling, erythema likely 2/2 IV Infiltration Has remained afebrile with a normal WBC U/S of the RUE with no evidence of DVT Started on Keflex on 12/11, area of erythema and swelling have significantly improved since Chronic venous stasis ulcers No evidence of active infection Continue local wound care and dressing changes Dyslipidemia Continue atorvastatin Hypertension B/P appears well controlled, cont current regimen Normocytic anemia, stable DVT prophylaxis- cont heparin Disposition: We will continue to work with PFS to establish a safe disposition with long-term placement. VS, I&O, 24H, [place] Vital Signs/I&O Vital Signs Date Time Temp Pulse Resp B/P Pulse Ox O2 Delivery O2 Flow Rate FiO2 12/14/16 22:00 98.7 80 20 127/62 96 Room Air I&O- Last 24 Hours up to 6 AM 12/15/16 05:59 Intake Total 1200 ml Output Total 0 ml Balance 1200 ml Laboratory Data 24H LABS Laboratory Tests 2 12/14/16 16:37: Bedside Glucose (Misc Panel) 120H 12/14/16 19:38: Bedside Glucose (Misc Panel) 349H 12/15/16 06:13: Bedside Glucose (Misc Panel) 120H 12/15/16 11:28: Bedside Glucose (Misc Panel) 144H Microbiology Microbiology 12/05/16 Influenza Virus Type A Antigen - Final, Complete 12/05/16 Influenza Virus Type B Antigen - Final, Complete LOULOU VEGA MD Dec 15, 2016 13:45
[2016-12-15 22:00] VITALS: BP 136/69
[2016-12-16] MEDS: CEPHALEXIN 500 MG CAP PO SCH ×3 (05:37→17:16)
[2016-12-16] MEDS: HEPARIN SOD (PORCINE) 5000 UNITS/ML VIAL SC SCH ×3 (05:37→21:37)
[2016-12-16 06:00] VITALS: BP 135/64
[2016-12-16 07:01] LABS: MEAN CORPUSCULAR HEMOGLOBIN 29.5 pg (27.0-33.0); MEAN CORPUSCULAR HGB CONC 32.7 g/dl (32.0-36.5); MEAN CORPUSCULAR VOLUME 90.1 fl (80.0-96.0); RED CELL DISTRIBUTION WIDTH 12.8 % (11.5-14.5); WHITE BLOOD COUNT 5.3 K/mm3 (4.0-10.0)
[2016-12-16 07:11] LABS: ANION GAP 7 MEQ/L (8-16); BLOOD UREA NITROGEN 15 MG/DL (7-18); CALCIUM LEVEL 8.3 MG/DL (8.8-10.2); CARBON DIOXIDE LEVEL 28 MEQ/L (21-32); CHLORIDE LEVEL 102 MEQ/L (98-107); CREATININE FOR GFR 0.85 MG/DL (0.70-1.30); GLOMERULAR FILTRATION RATE > 60.0 (>35); GLUCOSE, FASTING 133 MG/DL (83-110); POTASSIUM SERUM 4.1 MEQ/L (3.5-5.1); SODIUM LEVEL 137 MEQ/L (136-145)
[2016-12-16] MEDS: HumaLOG INSULIN (NovoLOG) PER UNIT SC SCH ×4 (07:36→21:00)
[2016-12-16] MEDS: NYSTATIN 100,000 UNITS/GM TOPICAL PWD 15 GM TOP SCH ×2 (09:00→21:00)
[2016-12-16] MEDS: EUCERIN 120GM CREAM TOP SCH ×2 (09:00→21:00)
[2016-12-16] MEDS: DIAPER RELIEF OINT (DESITIN) 60GM TOP SCH (09:00)
[2016-12-16] MEDS: DOCUSATE SODIUM 100 MG CAP PO SCH ×2 (09:40→21:00)
[2016-12-16] MEDS: ATORVASTATIN 20 MG TAB PO SCH (09:40)
[2016-12-16] MEDS: FUROSEMIDE 20 MG TAB PO SCH (09:40)
[2016-12-16] MEDS: HumuLIN (NovoLIN)70/30 INSULIN INJ PER UNIT SC SCH ×2 (09:41→21:00)
[2016-12-16 14:00] VITALS: BP 134/65
[2016-12-16 22:00] VITALS: BP 124/66
[2016-12-17] MEDS: CEPHALEXIN 500 MG CAP PO SCH ×5 (00:28→23:59)
[2016-12-17] MEDS: HEPARIN SOD (PORCINE) 5000 UNITS/ML VIAL SC SCH ×3 (06:00→22:13)
[2016-12-17] MEDS: ATORVASTATIN 20 MG TAB PO SCH (09:43)
[2016-12-17] MEDS: DOCUSATE SODIUM 100 MG CAP PO SCH ×2 (09:43→21:00)
[2016-12-17] MEDS: FUROSEMIDE 20 MG TAB PO SCH (09:43)
[2016-12-17] MEDS: HumaLOG INSULIN (NovoLOG) PER UNIT SC SCH ×4 (09:44→21:00)
[2016-12-17] MEDS: HumuLIN (NovoLIN)70/30 INSULIN INJ PER UNIT SC SCH ×2 (09:44→21:00)
[2016-12-17] MEDS: DIAPER RELIEF OINT (DESITIN) 60GM TOP SCH (09:45)
[2016-12-17] MEDS: EUCERIN 120GM CREAM TOP SCH ×2 (09:45→21:00)
[2016-12-17] MEDS: NYSTATIN 100,000 UNITS/GM TOPICAL PWD 15 GM TOP SCH ×2 (09:45→21:00)
[2016-12-17 14:00] VITALS: BP 140/60
[2016-12-17 22:00] VITALS: BP 123/60
[2016-12-18] MEDS: HEPARIN SOD (PORCINE) 5000 UNITS/ML VIAL SC SCH ×3 (05:20→21:33)
[2016-12-18] MEDS: CEPHALEXIN 500 MG CAP PO SCH ×3 (05:20→17:58)
[2016-12-18] MEDS: HumaLOG INSULIN (NovoLOG) PER UNIT SC SCH ×4 (09:04→21:00)
[2016-12-18] MEDS: HumuLIN (NovoLIN)70/30 INSULIN INJ PER UNIT SC SCH ×2 (09:04→21:34)
[2016-12-18] MEDS: FUROSEMIDE 20 MG TAB PO SCH (09:05)
[2016-12-18] MEDS: ATORVASTATIN 20 MG TAB PO SCH (09:05)
[2016-12-18] MEDS: DOCUSATE SODIUM 100 MG CAP PO SCH ×2 (09:05→21:33)
[2016-12-18] MEDS: NYSTATIN 100,000 UNITS/GM TOPICAL PWD 15 GM TOP SCH ×2 (09:06→21:36)
[2016-12-18] MEDS: EUCERIN 120GM CREAM TOP SCH ×2 (09:06→21:35)
[2016-12-18] MEDS: DIAPER RELIEF OINT (DESITIN) 60GM TOP SCH (09:06)
[2016-12-18 22:00] VITALS: BP 114/57
[2016-12-19] MEDS: CEPHALEXIN 500 MG CAP PO SCH ×5 (00:01→23:43)
[2016-12-19] MEDS: HEPARIN SOD (PORCINE) 5000 UNITS/ML VIAL SC SCH ×3 (05:43→21:56)
[2016-12-19] MEDS: HumaLOG INSULIN (NovoLOG) PER UNIT SC SCH ×4 (07:27→21:00)
[2016-12-19 08:14] VITALS: BP 117/60
[2016-12-19] MEDS: ATORVASTATIN 20 MG TAB PO SCH (08:42)
[2016-12-19] MEDS: HumuLIN (NovoLIN)70/30 INSULIN INJ PER UNIT SC SCH ×3 (08:42→21:57)
[2016-12-19] MEDS: FUROSEMIDE 20 MG TAB PO SCH (08:43)
[2016-12-19] MEDS: DOCUSATE SODIUM 100 MG CAP PO SCH ×2 (08:43→21:56)
[2016-12-19] MEDS: EUCERIN 120GM CREAM TOP SCH ×2 (08:43→22:00)
[2016-12-19] MEDS: NYSTATIN 100,000 UNITS/GM TOPICAL PWD 15 GM TOP SCH ×2 (08:44→22:01)
[2016-12-19] MEDS: DIAPER RELIEF OINT (DESITIN) 60GM TOP SCH (08:44)
[2016-12-19 22:00] VITALS: BP 112/55
[2016-12-20] MEDS: CEPHALEXIN 500 MG CAP PO SCH ×4 (05:54→23:12)
[2016-12-20] MEDS: HEPARIN SOD (PORCINE) 5000 UNITS/ML VIAL SC SCH ×3 (05:55→21:22)
[2016-12-20] MEDS: NYSTATIN 100,000 UNITS/GM TOPICAL PWD 15 GM TOP SCH ×2 (07:58→21:22)
[2016-12-20] MEDS: EUCERIN 120GM CREAM TOP SCH ×2 (07:58→21:21)
[2016-12-20] MEDS: DIAPER RELIEF OINT (DESITIN) 60GM TOP SCH (07:58)
[2016-12-20] MEDS: DOCUSATE SODIUM 100 MG CAP PO SCH ×2 (07:59→21:19)
[2016-12-20] MEDS: HumuLIN (NovoLIN)70/30 INSULIN INJ PER UNIT SC SCH ×3 (07:59→21:20)
[2016-12-20] MEDS: FUROSEMIDE 20 MG TAB PO SCH (07:59)
[2016-12-20] MEDS: ATORVASTATIN 20 MG TAB PO SCH (07:59)
[2016-12-20] MEDS: HumaLOG INSULIN (NovoLOG) PER UNIT SC SCH ×5 (08:00→21:00)
[2016-12-20 14:00] VITALS: BP 112/58
[2016-12-20 22:00] VITALS: BP 130/60
[2016-12-21] MEDS: CEPHALEXIN 500 MG CAP PO SCH ×3 (05:05→17:57)
[2016-12-21] MEDS: HEPARIN SOD (PORCINE) 5000 UNITS/ML VIAL SC SCH ×3 (05:06→21:09)
[2016-12-21 06:00] VITALS: BP 139/66
[2016-12-21] MEDS: HumaLOG INSULIN (NovoLOG) PER UNIT SC SCH ×4 (07:26→20:39)
[2016-12-21 09:16] VITALS: BP 121/61
[2016-12-21] MEDS: FUROSEMIDE 20 MG TAB PO SCH (09:35)
[2016-12-21] MEDS: DOCUSATE SODIUM 100 MG CAP PO SCH ×2 (09:35→21:10)
[2016-12-21] MEDS: NYSTATIN 100,000 UNITS/GM TOPICAL PWD 15 GM TOP SCH ×2 (09:35→21:12)
[2016-12-21] MEDS: ATORVASTATIN 20 MG TAB PO SCH (09:35)
[2016-12-21] MEDS: EUCERIN 120GM CREAM TOP SCH ×2 (09:36→21:12)
[2016-12-21] MEDS: DIAPER RELIEF OINT (DESITIN) 60GM TOP SCH (09:36)
[2016-12-21] MEDS: HumuLIN (NovoLIN)70/30 INSULIN INJ PER UNIT SC SCH ×2 (10:19→21:10)
[2016-12-21 14:00] VITALS: BP 122/59
[2016-12-21 22:00] VITALS: BP 118/58
[2016-12-22] MEDS: CEPHALEXIN 500 MG CAP PO SCH ×4 (00:13→17:19)
[2016-12-22] MEDS: HEPARIN SOD (PORCINE) 5000 UNITS/ML VIAL SC SCH ×3 (05:22→20:25)
[2016-12-22 06:00] VITALS: BP 113/60
[2016-12-22] MEDS: HumaLOG INSULIN (NovoLOG) PER UNIT SC SCH ×4 (07:13→20:17)
[2016-12-22 08:03] LABS: BASO % 0.4 % (0.0-1.0); EOS # 0.2 K/mm3 (0.0-0.50); EOS % 4.1 % (0.0-3.0); LARGE UNSTAINED CELL # 0.4 K/mm3 (0.0-0.4); LARGE UNSTAINED CELL % 7.3 % (0.0-4.0); LYMPH # 1.6 K/mm3 (1.5-4.5); LYMPH % 20.4 % (24.0-44.0); MEAN CORPUSCULAR HEMOGLOBIN 30.3 pg (27.0-33.0); MEAN CORPUSCULAR HGB CONC 33.3 g/dl (32.0-36.5); MEAN CORPUSCULAR VOLUME 91.1 fl (80.0-96.0); MONO # 0.7 K/mm3 (0.0-0.8); MONO % 12.1 % (0.0-5.0); NEUTROPHILS # 3.3 K/mm3 (1.8-7.7); NEUTROPHILS % 55.6 % (36.0-66.0); PLATELET COUNT, AUTOMATED 274 k/mm3 (150-450); RED CELL DISTRIBUTION WIDTH 12.9 % (11.5-14.5); WHITE BLOOD COUNT 5.8 K/mm3 (4.0-10.0)
[2016-12-22 08:22] LABS: ALBUMIN 2.1 GM/DL (3.2-5.2); ALBUMIN/GLOBULIN RATIO 0.49 (1.00-1.93); ALKALINE PHOSPHATASE 223 U/L (45-117); ALT/SGPT 17 U/L (12-78); ANION GAP 7 MEQ/L (8-16); AST/SGOT 19 U/L (15-37); BILIRUBIN,TOTAL 0.3 MG/DL (0.2-1.0); BLOOD UREA NITROGEN 16 MG/DL (7-18); CALCIUM LEVEL 8.1 MG/DL (8.8-10.2); CARBON DIOXIDE LEVEL 28 MEQ/L (21-32); CHLORIDE LEVEL 106 MEQ/L (98-107); CREATININE FOR GFR 0.81 MG/DL (0.70-1.30); GLOMERULAR FILTRATION RATE > 60.0 (>35); GLUCOSE, FASTING 132 MG/DL (83-110); MAGNESIUM LEVEL 2.2 MG/DL (1.8-2.4); PHOSPHORUS LEVEL 3.9 MG/DL (2.5-4.9); POTASSIUM SERUM 4.2 MEQ/L (3.5-5.1); SODIUM LEVEL 141 MEQ/L (136-145); TOTAL PROTEIN 6.4 GM/DL (6.4-8.2)
[2016-12-22] MEDS: HumuLIN (NovoLIN)70/30 INSULIN INJ PER UNIT SC SCH ×2 (08:41→20:26)
[2016-12-22] MEDS: NYSTATIN 100,000 UNITS/GM TOPICAL PWD 15 GM TOP SCH ×2 (08:42→20:26)
[2016-12-22] MEDS: FUROSEMIDE 20 MG TAB PO SCH (08:42)
[2016-12-22] MEDS: DOCUSATE SODIUM 100 MG CAP PO SCH ×2 (08:42→20:25)
[2016-12-22] MEDS: ATORVASTATIN 20 MG TAB PO SCH (08:42)
[2016-12-22] MEDS: EUCERIN 120GM CREAM TOP SCH ×2 (08:43→20:25)
[2016-12-22] MEDS: DIAPER RELIEF OINT (DESITIN) 60GM TOP SCH (08:43)
--- NOTE | 2016-12-22 10:49 | IPNPDOC ---
Text Note Date of Service The patient was seen on 12/22/16. NOTE Subjective: Patient is an 81 year old male with a PMHx of DLP, HTN, DM2, Chronic venous stasis ulcers, who presented to the ER with complaints of generalized weakness who fell multiple times. In the ER he was found to have uncontrolled DM2 with complaints of polyuria and polydipsia. He also was found to have BESSIE. Patient was seen and examined at bedside. No new complaints today. Objective: Vitals (See below) General: Lying in bed, no acute distress, comfortable, AAOx3 HEENT: NC, AT CVS: RRR, +S1S2 Lungs: Fair air entry b/l, -w/r/r Abdomen: Soft, ND, NT, +BSx4 Extremities: Chronic venous stasis ulcers bilaterally, no leg tenderness Assessment and plan: 1. s/p Hyperglycemia - likely 2/2 Uncontrolled DM2 - 2/2 non-compliance - Presented with glucose in 700s with polydipsia, polyuria and polyphagia - No acidosis or HHKS - Was given insulin IV in ER - Now on insulin 70/30 - will c/w 30 units BID - will c/w ISS 2. Chronic venous stasis ulcers - Appeared to be chronic changes with right leg with skin breaks and break down - no evidence of infection; shows significant improvement from admission - will c/w local wound care and dressing changes 3. s/p BESSIE - s/p IV fluid hydration 4. s/p Hyponatremia - likely 2/2 dehydration / pseudohyponatremia from hyperglycemia - s/p IV fluid hydration 5. s/p Hyperkalemia - resolved 6. Generalized weakness - possibly 2/2 dehydration, electrolyte abnormalities and deconditioning - s/p physical therapy; continue with ambulation 7. DLP - c/w atorvastatin 8. HTN - BP well controlled - c/w Lasix 20 PO QD 9. Normocytic anemia - Hg stable - Will continue to follow 10. DVT prophylaxis - c/w heparin Disposition: - Awaiting long-term placement, as patient is unable to care for self VS,Fish[facility], I+O VS, Fishbone, I+O Laboratory Tests 12/22/16 07:40 Calcium Level 8.1 L, Phosphorus Level 3.9, Aspartate Amino Transf (AST/SGOT) 19 , Alanine Aminotransferase (ALT/SGPT) 17, Alkaline Phosphatase 223 H, Total Bilirubin 0.3, Total Protein 6.4, Albumin 2.1 L, Red Blood Count 3.55 L, Mean Corpuscular Volume 91.1, Mean Corpuscular Hemoglobin 30.3, Mean Corpuscular Hemoglobin Concent 33.3, Red Cell Distribution Width 12.9, Neutrophils (%) (Auto ) 55.6, Lymphocytes (%) (Auto) 20.4 L, Monocytes (%) (Auto) 12.1 H, Eosinophils (%) (Auto) 4.1 H, Basophils (%) (Auto) 0.4, Neutrophils # (Auto) 3.3, Lymphocytes # (Auto) 1.6, Monocytes # (Auto) 0.7, Eosinophils # (Auto) 0.2, Basophils # (Auto) 0.0 Vital Signs Date Time Temp Pulse Resp B/P Pulse Ox O2 Delivery O2 Flow Rate FiO2 12/22/16 06:00 97.2 62 18 113/60 92 Room Air I&O- Last 24 Hours up to 6 AM 12/22/16 06:00 Intake Total 1570 ml Output Total 0 ml Balance 1570 ml ARLENE GARRIDO MD Dec 22, 2016 10:49
[2016-12-22 14:00] VITALS: BP 3/60
[2016-12-22 22:00] VITALS: BP 118/59
[2016-12-23] MEDS: CEPHALEXIN 500 MG CAP PO SCH ×4 (00:28→17:45)
[2016-12-23] MEDS: HEPARIN SOD (PORCINE) 5000 UNITS/ML VIAL SC SCH ×3 (05:54→21:25)
[2016-12-23 06:00] VITALS: BP 114/60
[2016-12-23] MEDS: HumuLIN (NovoLIN)70/30 INSULIN INJ PER UNIT SC SCH ×2 (08:30→21:26)
[2016-12-23] MEDS: DOCUSATE SODIUM 100 MG CAP PO SCH ×2 (08:31→21:26)
[2016-12-23] MEDS: EUCERIN 120GM CREAM TOP SCH ×2 (08:31→21:25)
[2016-12-23] MEDS: HumaLOG INSULIN (NovoLOG) PER UNIT SC SCH ×4 (08:31→21:00)
[2016-12-23] MEDS: NYSTATIN 100,000 UNITS/GM TOPICAL PWD 15 GM TOP SCH ×2 (08:31→21:26)
[2016-12-23] MEDS: ATORVASTATIN 20 MG TAB PO SCH (08:31)
[2016-12-23] MEDS: FUROSEMIDE 20 MG TAB PO SCH (08:32)
[2016-12-23] MEDS: DIAPER RELIEF OINT (DESITIN) 60GM TOP SCH (08:32)
[2016-12-23 14:00] VITALS: BP 136/62
[2016-12-23 22:00] VITALS: BP 120/58
[2016-12-24] MEDS: CEPHALEXIN 500 MG CAP PO SCH ×5 (00:09→23:41)
[2016-12-24] MEDS: HEPARIN SOD (PORCINE) 5000 UNITS/ML VIAL SC SCH ×3 (05:39→21:00)
[2016-12-24 06:00] VITALS: BP 118/58
[2016-12-24] MEDS: HumaLOG INSULIN (NovoLOG) PER UNIT SC SCH ×4 (07:30→21:00)
[2016-12-24] MEDS: FUROSEMIDE 20 MG TAB PO SCH (09:16)
[2016-12-24] MEDS: HumuLIN (NovoLIN)70/30 INSULIN INJ PER UNIT SC SCH ×2 (09:16→21:00)
[2016-12-24] MEDS: ATORVASTATIN 20 MG TAB PO SCH (09:17)
[2016-12-24] MEDS: DIAPER RELIEF OINT (DESITIN) 60GM TOP SCH (09:17)
[2016-12-24] MEDS: DOCUSATE SODIUM 100 MG CAP PO SCH ×2 (09:17→21:00)
[2016-12-24] MEDS: NYSTATIN 100,000 UNITS/GM TOPICAL PWD 15 GM TOP SCH ×2 (09:17→21:00)
[2016-12-24] MEDS: EUCERIN 120GM CREAM TOP SCH ×2 (09:26→21:00)
[2016-12-24 10:00] VITALS: BP 121/58
[2016-12-24 14:00] VITALS: BP 112/60
[2016-12-24 22:00] VITALS: BP 114/58
[2016-12-25] MEDS: HEPARIN SOD (PORCINE) 5000 UNITS/ML VIAL SC SCH ×3 (05:38→20:59)
[2016-12-25] MEDS: CEPHALEXIN 500 MG CAP PO SCH ×4 (05:38→23:21)
[2016-12-25 06:00] VITALS: BP 121/63
[2016-12-25] MEDS: HumaLOG INSULIN (NovoLOG) PER UNIT SC SCH ×4 (07:30→20:58)
[2016-12-25] MEDS: HumuLIN (NovoLIN)70/30 INSULIN INJ PER UNIT SC SCH ×2 (08:36→20:58)
[2016-12-25] MEDS: DIAPER RELIEF OINT (DESITIN) 60GM TOP SCH (09:23)
[2016-12-25] MEDS: ATORVASTATIN 20 MG TAB PO SCH (09:23)
[2016-12-25] MEDS: NYSTATIN 100,000 UNITS/GM TOPICAL PWD 15 GM TOP SCH ×2 (09:23→20:59)
[2016-12-25] MEDS: DOCUSATE SODIUM 100 MG CAP PO SCH ×2 (09:23→20:58)
[2016-12-25] MEDS: EUCERIN 120GM CREAM TOP SCH ×2 (09:23→20:59)
[2016-12-25] MEDS: FUROSEMIDE 20 MG TAB PO SCH (09:23)
[2016-12-25 10:00] VITALS: BP 124/74
[2016-12-26] MEDS: HEPARIN SOD (PORCINE) 5000 UNITS/ML VIAL SC SCH ×3 (05:35→22:24)
[2016-12-26] MEDS: CEPHALEXIN 500 MG CAP PO SCH ×3 (05:35→17:13)
[2016-12-26 06:00] VITALS: BP 101/61
[2016-12-26] MEDS: HumaLOG INSULIN (NovoLOG) PER UNIT SC SCH ×4 (07:24→21:00)
[2016-12-26] MEDS: HumuLIN (NovoLIN)70/30 INSULIN INJ PER UNIT SC SCH ×2 (07:36→22:26)
[2016-12-26] MEDS ORDERED: HumuLIN (NovoLIN)70/30 INSULIN INJ PER UNIT SC ONE (07:45)
[2016-12-26] MEDS: ATORVASTATIN 20 MG TAB PO SCH (08:53)
[2016-12-26] MEDS: DOCUSATE SODIUM 100 MG CAP PO SCH ×2 (08:53→22:23)
[2016-12-26] MEDS: FUROSEMIDE 20 MG TAB PO SCH (08:53)
[2016-12-26] MEDS: DIAPER RELIEF OINT (DESITIN) 60GM TOP SCH (08:53)
[2016-12-26] MEDS: EUCERIN 120GM CREAM TOP SCH ×2 (08:54→22:25)
[2016-12-26] MEDS: NYSTATIN 100,000 UNITS/GM TOPICAL PWD 15 GM TOP SCH ×2 (08:54→22:26)
[2016-12-27] MEDS: CEPHALEXIN 500 MG CAP PO SCH ×5 (00:18→22:55)
[2016-12-27] MEDS: HEPARIN SOD (PORCINE) 5000 UNITS/ML VIAL SC SCH ×3 (05:24→22:50)
[2016-12-27 06:00] VITALS: BP 123/80
[2016-12-27] MEDS: HumaLOG INSULIN (NovoLOG) PER UNIT SC SCH ×5 (07:30→21:00)
[2016-12-27 08:16] VITALS: BP 114/55
[2016-12-27] MEDS: ATORVASTATIN 20 MG TAB PO SCH (09:27)
[2016-12-27] MEDS: DOCUSATE SODIUM 100 MG CAP PO SCH ×2 (09:27→22:49)
[2016-12-27] MEDS: FUROSEMIDE 20 MG TAB PO SCH (09:28)
[2016-12-27] MEDS: HumuLIN (NovoLIN)70/30 INSULIN INJ PER UNIT SC SCH ×2 (09:29→22:50)
[2016-12-27] MEDS: NYSTATIN 100,000 UNITS/GM TOPICAL PWD 15 GM TOP SCH ×2 (09:30→22:55)
[2016-12-27] MEDS: DIAPER RELIEF OINT (DESITIN) 60GM TOP SCH (09:30)
[2016-12-27] MEDS: EUCERIN 120GM CREAM TOP SCH ×2 (09:31→22:51)
[2016-12-27] MEDS: MIRALAX *UNIT DOSE* 17GM PACKET PO PRN (13:40)
[2016-12-28] MEDS: CEPHALEXIN 500 MG CAP PO SCH ×4 (05:52→23:43)
[2016-12-28] MEDS: HEPARIN SOD (PORCINE) 5000 UNITS/ML VIAL SC SCH ×3 (05:52→21:31)
[2016-12-28 06:00] VITALS: BP 118/60
[2016-12-28] MEDS: HumaLOG INSULIN (NovoLOG) PER UNIT SC SCH ×4 (07:30→21:00)
[2016-12-28] MEDS: ATORVASTATIN 20 MG TAB PO SCH (09:24)
[2016-12-28] MEDS: FUROSEMIDE 20 MG TAB PO SCH (09:24)
[2016-12-28] MEDS: NYSTATIN 100,000 UNITS/GM TOPICAL PWD 15 GM TOP SCH ×2 (09:24→21:31)
[2016-12-28] MEDS: DOCUSATE SODIUM 100 MG CAP PO SCH ×2 (09:24→21:31)
[2016-12-28] MEDS: EUCERIN 120GM CREAM TOP SCH ×2 (09:25→21:33)
[2016-12-28] MEDS: DIAPER RELIEF OINT (DESITIN) 60GM TOP SCH (09:25)
[2016-12-28] MEDS: HumuLIN (NovoLIN)70/30 INSULIN INJ PER UNIT SC SCH ×2 (09:58→21:32)
[2016-12-28 14:00] VITALS: BP 118/62
[2016-12-29] MEDS: HEPARIN SOD (PORCINE) 5000 UNITS/ML VIAL SC SCH ×3 (05:22→21:55)
[2016-12-29] MEDS: CEPHALEXIN 500 MG CAP PO SCH (05:23)
[2016-12-29 06:00] VITALS: BP 145/67
[2016-12-29] MEDS: HumaLOG INSULIN (NovoLOG) PER UNIT SC SCH ×4 (07:45→21:00)
[2016-12-29 09:06] LABS: MEAN CORPUSCULAR HEMOGLOBIN 30.2 pg (27.0-33.0); MEAN CORPUSCULAR HGB CONC 32.9 g/dl (32.0-36.5); MEAN CORPUSCULAR VOLUME 91.9 fl (80.0-96.0); RED CELL DISTRIBUTION WIDTH 13.5 % (11.5-14.5); WHITE BLOOD COUNT 6.4 K/mm3 (4.0-10.0)
[2016-12-29 09:23] LABS: ANION GAP 8 MEQ/L (8-16); BLOOD UREA NITROGEN 15 MG/DL (7-18); CALCIUM LEVEL 8.3 MG/DL (8.8-10.2); CARBON DIOXIDE LEVEL 28 MEQ/L (21-32); CHLORIDE LEVEL 106 MEQ/L (98-107); GLOMERULAR FILTRATION RATE > 60.0 (>35); GLUCOSE, FASTING 159 MG/DL (83-110); POTASSIUM SERUM 4.3 MEQ/L (3.5-5.1); SODIUM LEVEL 142 MEQ/L (136-145)
[2016-12-29] MEDS: NYSTATIN 100,000 UNITS/GM TOPICAL PWD 15 GM TOP SCH ×2 (09:27→21:56)
[2016-12-29] MEDS: EUCERIN 120GM CREAM TOP SCH ×2 (09:27→21:56)
[2016-12-29] MEDS: HumuLIN (NovoLIN)70/30 INSULIN INJ PER UNIT SC SCH ×2 (09:27→21:00)
[2016-12-29] MEDS: DIAPER RELIEF OINT (DESITIN) 60GM TOP SCH (09:27)
[2016-12-29] MEDS: ATORVASTATIN 20 MG TAB PO SCH (09:28)
[2016-12-29] MEDS: MIRALAX *UNIT DOSE* 17GM PACKET PO PRN (09:28)
[2016-12-29] MEDS: DOCUSATE SODIUM 100 MG CAP PO SCH ×2 (09:28→21:55)
[2016-12-29] MEDS: FUROSEMIDE 20 MG TAB PO SCH (09:28)
--- NOTE | 2016-12-29 13:30 | IPNPDOC ---
Subjective Date Seen The patient was seen on 12/29/16. Subjective Chief Complaint/HPI The patient is a 81-year-old male admitted with a reason for visit of Acute Hyperkalemia Hyperglycemia. General: Denies: Chills, Night Sweats Constitutional: Denies: Chills, Fever Eyes: Denies: Pain, Vision change ENT: Denies: Ear Pain, Head Aches Skin: Denies: Lesions, Rash Pulmonary: Denies: Cough, Dyspnea Cardiovascular: Denies: Chest Pain, Palpitations Gastrointestinal: Denies: Nausea, Vomiting Genitourinary: Denies: Dysuria, Frequency Hematologic: Denies: Bleeding Excessively, Bruising Objective Physical Examination General Exam: Positive: Alert, Cooperative, No Acute Distress ENT Exam: Positive: Atraumatic, Mucous membr. moist/pink Chest Exam: Positive: Clear to auscultation, Normal air movement Heart Exam: Positive: Normal S1, Normal S2, Rate Normal Abdomen Exam: Positive: Soft, Negative: Tenderness Extremity Exam: Positive: Other (RUE with decreased erythema, tenderness. No active purulant drainage.), Negative: Tenderness Assessment /Plan Plan/VTE VTE Prophylaxis Ordered?: Yes Plan Diabetes Mellitus Cont on insulin 70/30, 30 units BID Will continue on ISS for additional coverage Patient's blood sugar levels appear to be well controlled RUE swelling, erythema likely 2/2 IV Infiltration Has remained afebrile with a normal WBC U/S of the RUE with no evidence of DVT SP Keflex Chronic venous stasis ulcers No evidence of active infection Continue local wound care and dressing changes Dyslipidemia Continue atorvastatin Hypertension B/P appears well controlled, cont current regimen Normocytic anemia, stable DVT prophylaxis- cont heparin Disposition: We will continue to work with PFS to establish a safe disposition with long-term placement. VS, I&O, 24H, [place] Vital Signs/I&O Vital Signs Date Time Temp Pulse Resp B/P Pulse Ox O2 Delivery O2 Flow Rate FiO2 12/29/16 06:00 95.4 57 18 145/67 100 Room Air I&O- Last 24 Hours up to 6 AM 12/29/16 06:00 Intake Total 1160 ml Output Total 600 ml Balance 560 ml Laboratory Data 24H LABS Laboratory Tests 2 12/28/16 17:22: Bedside Glucose (Misc Panel) 103 12/28/16 20:45: Bedside Glucose (Misc Panel) 161H 12/29/16 06:19: Bedside Glucose (Misc Panel) 84 12/29/16 08:51: Anion Gap 8, Blood Urea Nitrogen 15, Creatinine 0.90, Sodium Level 142, Potassium Level 4.3, Chloride Level 106, Carbon Dioxide Level 28, Calcium Level 8.3L, Glomerular Filtration Rate > 60.0 12/29/16 12:05: Bedside Glucose (Misc Panel) 124H CBC/BMP Laboratory Tests 12/29/16 08:51 Calcium Level 8.3 L, Red Blood Count 3.54 L, Mean Corpuscular Volume 91.9, Mean Corpuscular Hemoglobin 30.2, Mean Corpuscular Hemoglobin Concent 32.9, Red Cell Distribution Width 13.5 LOULOU VEGA MD Dec 29, 2016 13:30
[2016-12-29 14:00] VITALS: BP 161/70
[2016-12-30 06:00] VITALS: BP 164/72
[2016-12-30] MEDS: HEPARIN SOD (PORCINE) 5000 UNITS/ML VIAL SC SCH ×3 (06:06→20:52)
[2016-12-30] MEDS: ATORVASTATIN 20 MG TAB PO SCH (08:33)
[2016-12-30] MEDS: DOCUSATE SODIUM 100 MG CAP PO SCH ×2 (08:33→20:51)
[2016-12-30] MEDS: FUROSEMIDE 20 MG TAB PO SCH (08:33)
[2016-12-30] MEDS: HumuLIN (NovoLIN)70/30 INSULIN INJ PER UNIT SC SCH ×2 (08:34→20:52)
[2016-12-30] MEDS: HumaLOG INSULIN (NovoLOG) PER UNIT SC SCH ×4 (08:34→20:52)
[2016-12-30] MEDS: DIAPER RELIEF OINT (DESITIN) 60GM TOP SCH (08:36)
[2016-12-30] MEDS: EUCERIN 120GM CREAM TOP SCH ×2 (08:36→20:52)
[2016-12-30] MEDS: NYSTATIN 100,000 UNITS/GM TOPICAL PWD 15 GM TOP SCH ×2 (08:37→20:52)
[2016-12-30 10:00] VITALS: BP 154/70
[2016-12-30 14:00] VITALS: BP 154/71
[2016-12-31] MEDS: HEPARIN SOD (PORCINE) 5000 UNITS/ML VIAL SC SCH ×3 (05:15→21:52)
[2016-12-31 06:00] VITALS: BP 134/69
[2016-12-31] MEDS: DOCUSATE SODIUM 100 MG CAP PO SCH ×2 (08:58→21:46)
[2016-12-31] MEDS: ATORVASTATIN 20 MG TAB PO SCH (08:58)
[2016-12-31] MEDS: HumuLIN (NovoLIN)70/30 INSULIN INJ PER UNIT SC SCH ×2 (08:59→21:00)
[2016-12-31] MEDS: FUROSEMIDE 20 MG TAB PO SCH (08:59)
[2016-12-31] MEDS: NYSTATIN 100,000 UNITS/GM TOPICAL PWD 15 GM TOP SCH ×2 (09:00→21:46)
[2016-12-31] MEDS: DIAPER RELIEF OINT (DESITIN) 60GM TOP SCH (09:00)
[2016-12-31] MEDS: EUCERIN 120GM CREAM TOP SCH ×2 (09:00→21:48)
[2016-12-31] MEDS: HumaLOG INSULIN (NovoLOG) PER UNIT SC SCH ×4 (09:00→21:00)
--- NOTE | 2016-12-31 17:05 | IPN ---
DATE: 12/31/2016 Ms. Bonner is feeling well this morning. Has no complaints of pain, chest pain. No shortness of breath. Is tolerating a diet. Temperature is 98.6, pulse 64, respirations 18, blood pressure 134/69, 96% on room air. Intake and output notable for a positive fluid balance of 1540, one bowel movement noted yesterday. He is awake appropriately interactive, pleasant conversant. Breathing is symmetrical, diminished. Heart is distant sounding. Normal S1, S2. Abdomen soft, doughy, nontender. Most recent white cell count was on December 29, 6.4, hemoglobin 10.7 on the same day. Creatinine on that day was 0.9. ASSESSMENT: This is an 81-year-old who presented with hyperkalemia and hyperglycemia. PLAN: 1. Patient has diabetes, continuing on insulin as currently ordered. Fingersticks are reasonably well controlled. 2. The patient had right upper extremity swelling, which appears to be resolved from previous exam, related to an infiltration. 3. Patient has chronic venous stasis ulcers. 4. Patient has dyslipidemia. 5. Patient has hypertension. 6. Patient has appropriate deep vein thrombosis (DVT) prophylaxis. 7. Awaiting placement.
[2016-12-31 22:00] VITALS: BP 129/64
[2017-01-01] MEDS: HEPARIN SOD (PORCINE) 5000 UNITS/ML VIAL SC SCH ×3 (05:24→20:33)
[2017-01-01 06:00] VITALS: BP 124/66
[2017-01-01] MEDS: EUCERIN 120GM CREAM TOP SCH ×2 (09:00→20:34)
[2017-01-01] MEDS: NYSTATIN 100,000 UNITS/GM TOPICAL PWD 15 GM TOP SCH ×2 (09:02→20:34)
[2017-01-01] MEDS: DOCUSATE SODIUM 100 MG CAP PO SCH ×2 (09:02→20:32)
[2017-01-01] MEDS: FUROSEMIDE 20 MG TAB PO SCH (09:02)
[2017-01-01] MEDS: ATORVASTATIN 20 MG TAB PO SCH (09:02)
[2017-01-01] MEDS: HumaLOG INSULIN (NovoLOG) PER UNIT SC SCH ×4 (09:27→22:00)
[2017-01-01] MEDS: HumuLIN (NovoLIN)70/30 INSULIN INJ PER UNIT SC SCH ×2 (09:28→20:34)
[2017-01-01] MEDS: DIAPER RELIEF OINT (DESITIN) 60GM TOP SCH (12:31)
[2017-01-01 14:00] VITALS: BP 123/60
[2017-01-01 22:00] VITALS: BP 141/64
[2017-01-02 06:00] VITALS: BP 137/73
[2017-01-02] MEDS: HEPARIN SOD (PORCINE) 5000 UNITS/ML VIAL SC SCH ×3 (06:07→20:32)
[2017-01-02] MEDS: HumaLOG INSULIN (NovoLOG) PER UNIT SC SCH ×4 (08:11→20:31)
[2017-01-02] MEDS: DOCUSATE SODIUM 100 MG CAP PO SCH ×2 (08:11→20:32)
[2017-01-02] MEDS: ATORVASTATIN 20 MG TAB PO SCH (08:11)
[2017-01-02] MEDS: FUROSEMIDE 20 MG TAB PO SCH (08:11)
[2017-01-02] MEDS: EUCERIN 120GM CREAM TOP SCH ×2 (08:12→20:33)
[2017-01-02] MEDS: DIAPER RELIEF OINT (DESITIN) 60GM TOP SCH (08:12)
[2017-01-02] MEDS: HumuLIN (NovoLIN)70/30 INSULIN INJ PER UNIT SC SCH ×2 (08:12→20:33)
[2017-01-02] MEDS: NYSTATIN 100,000 UNITS/GM TOPICAL PWD 15 GM TOP SCH ×2 (08:13→20:32)
[2017-01-03 06:00] VITALS: BP 136/67
[2017-01-03] MEDS: HEPARIN SOD (PORCINE) 5000 UNITS/ML VIAL SC SCH ×3 (06:17→21:04)
[2017-01-03] MEDS: HumaLOG INSULIN (NovoLOG) PER UNIT SC SCH ×4 (07:30→21:00)
[2017-01-03] MEDS: HumuLIN (NovoLIN)70/30 INSULIN INJ PER UNIT SC SCH ×3 (08:52→21:05)
[2017-01-03] MEDS: ATORVASTATIN 20 MG TAB PO SCH (09:02)
[2017-01-03] MEDS: NYSTATIN 100,000 UNITS/GM TOPICAL PWD 15 GM TOP SCH ×2 (09:02→21:06)
[2017-01-03] MEDS: EUCERIN 120GM CREAM TOP SCH ×2 (09:02→21:05)
[2017-01-03] MEDS: FUROSEMIDE 20 MG TAB PO SCH (09:02)
[2017-01-03] MEDS: DOCUSATE SODIUM 100 MG CAP PO SCH ×2 (09:02→21:03)
[2017-01-03] MEDS: DIAPER RELIEF OINT (DESITIN) 60GM TOP SCH (09:04)
[2017-01-04] MEDS: HEPARIN SOD (PORCINE) 5000 UNITS/ML VIAL SC SCH ×3 (05:48→21:43)
[2017-01-04 06:00] VITALS: BP 125/61
[2017-01-04] MEDS: HumaLOG INSULIN (NovoLOG) PER UNIT SC SCH ×4 (07:30→21:00)
[2017-01-04] MEDS: ATORVASTATIN 20 MG TAB PO SCH (10:05)
[2017-01-04] MEDS: FUROSEMIDE 20 MG TAB PO SCH (10:05)
[2017-01-04] MEDS: DOCUSATE SODIUM 100 MG CAP PO SCH ×2 (10:05→21:42)
[2017-01-04] MEDS: HumuLIN (NovoLIN)70/30 INSULIN INJ PER UNIT SC SCH ×2 (10:06→21:44)
[2017-01-04] MEDS: DIAPER RELIEF OINT (DESITIN) 60GM TOP SCH (10:06)
[2017-01-04] MEDS: EUCERIN 120GM CREAM TOP SCH ×2 (10:07→21:44)
[2017-01-04] MEDS: NYSTATIN 100,000 UNITS/GM TOPICAL PWD 15 GM TOP SCH ×2 (10:07→21:43)
[2017-01-04 14:00] VITALS: BP 122/74
[2017-01-05] MEDS: HEPARIN SOD (PORCINE) 5000 UNITS/ML VIAL SC SCH ×3 (05:59→20:59)
[2017-01-05 06:00] VITALS: BP 116/58
[2017-01-05] MEDS: HumaLOG INSULIN (NovoLOG) PER UNIT SC SCH ×4 (07:14→21:00)
[2017-01-05] MEDS: HumuLIN (NovoLIN)70/30 INSULIN INJ PER UNIT SC SCH ×2 (09:00→21:00)
[2017-01-05] MEDS: DOCUSATE SODIUM 100 MG CAP PO SCH ×2 (09:24→21:00)
[2017-01-05] MEDS: DIAPER RELIEF OINT (DESITIN) 60GM TOP SCH (09:25)
[2017-01-05] MEDS: ATORVASTATIN 20 MG TAB PO SCH (09:25)
[2017-01-05] MEDS: NYSTATIN 100,000 UNITS/GM TOPICAL PWD 15 GM TOP SCH ×2 (09:25→21:00)
[2017-01-05] MEDS: FUROSEMIDE 20 MG TAB PO SCH (09:25)
[2017-01-05] MEDS: EUCERIN 120GM CREAM TOP SCH ×2 (09:26→21:00)
[2017-01-05 14:00] VITALS: BP 127/58
[2017-01-06] MEDS: HEPARIN SOD (PORCINE) 5000 UNITS/ML VIAL SC SCH ×3 (05:07→21:29)
[2017-01-06 06:00] VITALS: BP 131/64
[2017-01-06] MEDS: HumaLOG INSULIN (NovoLOG) PER UNIT SC SCH ×4 (08:03→21:00)
[2017-01-06] MEDS: FUROSEMIDE 20 MG TAB PO SCH (08:04)
[2017-01-06] MEDS: DOCUSATE SODIUM 100 MG CAP PO SCH ×2 (08:04→21:29)
[2017-01-06] MEDS: ATORVASTATIN 20 MG TAB PO SCH (08:04)
[2017-01-06] MEDS: HumuLIN (NovoLIN)70/30 INSULIN INJ PER UNIT SC SCH ×2 (08:04→21:29)
--- NOTE | 2017-01-06 08:06 | IPN ---
DATE: 01/05/2017 Mr. Bonner is feeling well today. He has not had so much pain, chest pain, or shortness of breath. He may not be a fantastic historian. Temperature is 98.6, pulse 71, respiratory rate 18, blood pressure 116/ . He was asleep on my arrival, but easily aroused, answered simple questions, spoke in complete sentences, in no acute distress. ASSESSMENT: An 81-year-old who presented with hyperkalemia and hyperglycemia. PLAN: 1. Patient has diabetes on insulin as ordered. Fingersticks are reasonably well controlled. 2. Patient has right upper extremity swelling which has resolved related to an infiltration. 3. Patient has chronic venous stasis ulcers. 4. Patient has dyslipidemia. 5. Patient has hypertension. 6. Patient has appropriate deep vein thrombosis (DVT) prophylaxis. Patient is awaiting placement.
[2017-01-06] MEDS: DIAPER RELIEF OINT (DESITIN) 60GM TOP SCH (09:00)
[2017-01-06] MEDS: EUCERIN 120GM CREAM TOP SCH ×2 (09:00→21:31)
[2017-01-06] MEDS: NYSTATIN 100,000 UNITS/GM TOPICAL PWD 15 GM TOP SCH ×2 (09:00→21:31)
[2017-01-06 14:00] VITALS: BP 132/68
[2017-01-06 14:55] VITALS: BP 139/65
[2017-01-06 22:00] VITALS: BP 131/58
[2017-01-07] MEDS: HEPARIN SOD (PORCINE) 5000 UNITS/ML VIAL SC SCH ×3 (05:33→21:34)
[2017-01-07 06:00] VITALS: BP 128/61
[2017-01-07 06:45] LABS: MEAN CORPUSCULAR HEMOGLOBIN 30.1 pg (27.0-33.0); MEAN CORPUSCULAR HGB CONC 32.9 g/dl (32.0-36.5); MEAN CORPUSCULAR VOLUME 91.6 fl (80.0-96.0); RED CELL DISTRIBUTION WIDTH 13.5 % (11.5-14.5); WHITE BLOOD COUNT 6.1 K/mm3 (4.0-10.0)
[2017-01-07 06:53] LABS: ANION GAP 6 MEQ/L (8-16); BLOOD UREA NITROGEN 18 MG/DL (7-18); CARBON DIOXIDE LEVEL 29 MEQ/L (21-32); CHLORIDE LEVEL 106 MEQ/L (98-107); CREATININE FOR GFR 0.85 MG/DL (0.70-1.30); GLOMERULAR FILTRATION RATE > 60.0 (>35); GLUCOSE, FASTING 64 MG/DL (83-110); SODIUM LEVEL 141 MEQ/L (136-145)
[2017-01-07] MEDS: HumaLOG INSULIN (NovoLOG) PER UNIT SC SCH ×4 (07:27→20:53)
[2017-01-07] MEDS: FUROSEMIDE 20 MG TAB PO SCH (08:29)
[2017-01-07] MEDS: DOCUSATE SODIUM 100 MG CAP PO SCH ×2 (08:29→21:34)
[2017-01-07] MEDS: ATORVASTATIN 20 MG TAB PO SCH (08:29)
[2017-01-07] MEDS: EUCERIN 120GM CREAM TOP SCH ×2 (08:29→21:35)
[2017-01-07] MEDS: DIAPER RELIEF OINT (DESITIN) 60GM TOP SCH (08:30)
[2017-01-07] MEDS: NYSTATIN 100,000 UNITS/GM TOPICAL PWD 15 GM TOP SCH ×2 (08:30→21:36)
[2017-01-07] MEDS: HumuLIN (NovoLIN)70/30 INSULIN INJ PER UNIT SC SCH ×2 (08:46→21:35)
[2017-01-08] MEDS: HEPARIN SOD (PORCINE) 5000 UNITS/ML VIAL SC SCH ×3 (05:12→21:20)
[2017-01-08 06:00] VITALS: BP 101/61
[2017-01-08] MEDS: HumaLOG INSULIN (NovoLOG) PER UNIT SC SCH ×4 (07:30→20:58)
[2017-01-08] MEDS: FUROSEMIDE 20 MG TAB PO SCH (08:00)
[2017-01-08] MEDS: ATORVASTATIN 20 MG TAB PO SCH (08:01)
[2017-01-08] MEDS: DOCUSATE SODIUM 100 MG CAP PO SCH ×2 (08:01→21:20)
[2017-01-08] MEDS: NYSTATIN 100,000 UNITS/GM TOPICAL PWD 15 GM TOP SCH ×2 (08:02→21:21)
[2017-01-08] MEDS: EUCERIN 120GM CREAM TOP SCH ×2 (08:02→21:20)
[2017-01-08] MEDS: HumuLIN (NovoLIN)70/30 INSULIN INJ PER UNIT SC SCH ×2 (09:00→21:21)
[2017-01-08 22:00] VITALS: BP 127/58
[2017-01-09] MEDS: HEPARIN SOD (PORCINE) 5000 UNITS/ML VIAL SC SCH ×3 (05:11→21:07)
[2017-01-09 06:00] VITALS: BP 105/50
[2017-01-09] MEDS: HumaLOG INSULIN (NovoLOG) PER UNIT SC SCH ×4 (08:20→21:00)
[2017-01-09] MEDS: HumuLIN (NovoLIN)70/30 INSULIN INJ PER UNIT SC SCH ×2 (08:21→21:08)
[2017-01-09] MEDS: DOCUSATE SODIUM 100 MG CAP PO SCH ×2 (08:22→21:08)
[2017-01-09] MEDS: FUROSEMIDE 20 MG TAB PO SCH (08:22)
[2017-01-09] MEDS: ATORVASTATIN 20 MG TAB PO SCH (08:22)
[2017-01-09] MEDS: EUCERIN 120GM CREAM TOP SCH ×2 (08:23→21:08)
--- NOTE | 2017-01-09 08:46 | IPNPDOC ---
Subjective Date Seen The patient was seen on 01/09/17. Subjective Chief Complaint/HPI The patient is a 81-year-old male admitted with a reason for visit of Acute Hyperkalemia Hyperglycemia. General: Denies: Chills, Fatigue, Malaise, Night Sweats, Normal Appetite, Other Symptoms, ROS Unobtainable Constitutional: Denies: Chills, Fatigue, Fever, Lethargy, Malaise, Night Sweats , Other, Weakness, Weight Loss Eyes: Denies: Conjunctivae inflammation, Eyelid inflammation, Other, Pain, Redness, Vision change ENT: Denies: Dysphagia, Ear Pain, Epistaxis, Head Aches, Other Symptoms, Post Nasal Drip, Sinus Congestion, Sore Throat Skin: Denies: Breakdown, Bruising, Dry, Itching, Jaundice, Lesions, Nail Changes, Other, Rash Pulmonary: Denies: Cough, Dyspnea, Other Symptoms, Pleuritic Chest Pain Cardiovascular: Denies: Chest Pain, Edema, Lt Headedness, Orthopnea, Other Symptoms, Palpitations, Paroxysmal Noc. Dyspnea Gastrointestinal: Denies: Abdominal Pain, Constipation, Diarrhea, Hematochezia , Melena, Nausea, Other Symptoms, Vomiting Genitourinary: Denies: Dysuria, Frequency, Hematuria, Incontinence, Other Symptoms, Retention Objective Physical Examination General Exam: Positive: Alert, Cooperative, No Acute Distress Eye Exam: Positive: Conjunctiva & lids normal, EOMI, PERRLA, Negative: Sclera icteric ENT Exam: Positive: Atraumatic, Mucous membr. moist/pink Neck Exam: Positive: Supple Chest Exam: Positive: Clear to auscultation, Normal air movement Heart Exam: Positive: Normal S1, Normal S2, Rate Normal Abdomen Exam: Positive: Normal bowel sounds, Soft, Negative: Tenderness Extremity Exam: Negative: Edema, Tenderness Skin Exam: Positive: Other skin issue (B/L LE chronic venous stasis changes) Psych Exam: Negative: Oriented x 3 (oriented to person, time with prompting, correctly answered current president) Assessment /Plan Problems (1) Diabetes Status: Chronic Response to Treatment: Controlled Discussed With: Patient Problem Specific Plan: Repeat Labs (2) HTN (hypertension) Status: Chronic Discussed With: Patient Problem Specific Plan: Monitor Clinically (3) Dyslipidemia Status: Chronic Discussed With: Patient Plan/VTE VTE Prophylaxis Ordered?: Yes Plan Diet: Continue Current Activity: Continue Current Anticipated Discharge: Assisted Living, [facility] Disposition Pending placement VS, I&O, 24H, [facility] Vital Signs/I&O Vital Signs Date Time Temp Pulse Resp B/P Pulse Ox O2 Delivery O2 Flow Rate FiO2 01/09/17 06:00 99.2 63 18 105/50 98 Room Air I&O- Last 24 Hours up to 6 AM 01/09/17 06:00 Intake Total 960 ml Output Total 1850 ml Balance -890 ml Laboratory Data 24H LABS Laboratory Tests 2 01/08/17 11:40: Bedside Glucose (Misc Panel) 171H CALEB VIGIL MD Jan 09, 2017 08:46
[2017-01-09] MEDS: NYSTATIN 100,000 UNITS/GM TOPICAL PWD 15 GM TOP SCH ×2 (12:24→21:08)
[2017-01-09 13:27] VITALS: BP 134/61
[2017-01-10] MEDS: HEPARIN SOD (PORCINE) 5000 UNITS/ML VIAL SC SCH ×3 (05:03→21:10)
[2017-01-10 05:50] VITALS: BP 148/70
[2017-01-10] MEDS: HumuLIN (NovoLIN)70/30 INSULIN INJ PER UNIT SC SCH ×2 (07:30→17:32)
[2017-01-10] MEDS: HumaLOG INSULIN (NovoLOG) PER UNIT SC SCH ×4 (07:30→20:34)
[2017-01-10] MEDS: DOCUSATE SODIUM 100 MG CAP PO SCH ×2 (09:00→21:10)
[2017-01-10] MEDS: ATORVASTATIN 20 MG TAB PO SCH (09:00)
[2017-01-10] MEDS: FUROSEMIDE 20 MG TAB PO SCH (09:01)
[2017-01-10] MEDS: NYSTATIN 100,000 UNITS/GM TOPICAL PWD 15 GM TOP SCH ×2 (09:02→21:10)
[2017-01-10] MEDS: EUCERIN 120GM CREAM TOP SCH ×2 (09:02→21:13)
[2017-01-10 14:00] VITALS: BP 126/59
[2017-01-11] MEDS: HEPARIN SOD (PORCINE) 5000 UNITS/ML VIAL SC SCH ×3 (05:27→21:16)
[2017-01-11 06:00] VITALS: BP 135/64
[2017-01-11] MEDS: DOCUSATE SODIUM 100 MG CAP PO SCH ×2 (08:14→21:15)
[2017-01-11] MEDS: FUROSEMIDE 20 MG TAB PO SCH (08:14)
[2017-01-11] MEDS: ATORVASTATIN 20 MG TAB PO SCH (08:14)
[2017-01-11] MEDS: HumaLOG INSULIN (NovoLOG) PER UNIT SC SCH ×4 (08:15→20:33)
[2017-01-11] MEDS: EUCERIN 120GM CREAM TOP SCH ×2 (08:16→21:16)
[2017-01-11] MEDS: HumuLIN (NovoLIN)70/30 INSULIN INJ PER UNIT SC SCH ×2 (08:16→17:19)
[2017-01-11] MEDS: NYSTATIN 100,000 UNITS/GM TOPICAL PWD 15 GM TOP SCH ×2 (08:16→21:16)
[2017-01-12 05:55] VITALS: BP 156/74
[2017-01-12] MEDS: HEPARIN SOD (PORCINE) 5000 UNITS/ML VIAL SC SCH ×3 (07:02→21:43)
[2017-01-12] MEDS: HumaLOG INSULIN (NovoLOG) PER UNIT SC SCH ×4 (08:01→19:54)
[2017-01-12] MEDS: ATORVASTATIN 20 MG TAB PO SCH (08:01)
[2017-01-12] MEDS: HumuLIN (NovoLIN)70/30 INSULIN INJ PER UNIT SC SCH ×2 (08:01→17:20)
[2017-01-12] MEDS: DOCUSATE SODIUM 100 MG CAP PO SCH ×2 (08:01→19:54)
[2017-01-12] MEDS: FUROSEMIDE 20 MG TAB PO SCH (08:01)
[2017-01-12] MEDS: EUCERIN 120GM CREAM TOP SCH ×2 (08:02→19:54)
[2017-01-12] MEDS: NYSTATIN 100,000 UNITS/GM TOPICAL PWD 15 GM TOP SCH ×2 (08:02→19:54)
[2017-01-13] MEDS: HEPARIN SOD (PORCINE) 5000 UNITS/ML VIAL SC SCH ×2 (05:33→13:09)
[2017-01-13 06:00] VITALS: BP 115/58
[2017-01-13] MEDS: FUROSEMIDE 20 MG TAB PO SCH (08:44)
[2017-01-13] MEDS: ATORVASTATIN 20 MG TAB PO SCH (08:44)
[2017-01-13] MEDS: DOCUSATE SODIUM 100 MG CAP PO SCH (08:44)
[2017-01-13] MEDS: HumuLIN (NovoLIN)70/30 INSULIN INJ PER UNIT SC SCH (08:45)
[2017-01-13] MEDS: HumaLOG INSULIN (NovoLOG) PER UNIT SC SCH ×2 (08:45→13:09)
[2017-01-13] MEDS: NYSTATIN 100,000 UNITS/GM TOPICAL PWD 15 GM TOP SCH (10:08)
[2017-01-13] MEDS: EUCERIN 120GM CREAM TOP SCH (10:08)
[2017-01-13] MEDS ORDERED: HUMU70IN SC ×2 (13:04)
[2017-01-13] MEDS ORDERED: INSUHUMDS SC ×2 (13:04)
--- NOTE | 2017-01-13 16:13 | DS.PDOC ---
Discharge Summary General Date of Admission Dec 06, 2016 at 10:28 Date of Discharge Jan 13, 2017 at 13:59 Primary Care Physician: MARISSA BANUELOS PA-C Discharge Summary PROCEDURES PERFORMED DURING STAY: [None]. DISCHARGE DIAGNOSES: 1. Diabetes 2. Dyslipidemia 3. HTN 4. Prostate CA 5. Pseudohyponatremia 6. Acute kidney injury 7. Generalized deconditioning 8. Non-compliance COMPLICATIONS/CHIEF COMPLAINT: Acute Hyperkalemia Hyperglycemia. HISTORY OF PRESENT ILLNESS: 81 year old male lives at home alone, found lying on floor, history of multiple falls. HOSPITAL COURSE: Patient was admitted for further evaluation s/p fall. Found also to be incontinent of urine, and hyperglycemic. Originally admitted to telemetry for his hypokalemia, no ECG changes. BESSIE resolved with IV fluids. Insulin regimen started, blood sugars controlled. Patient transitioned to SNF status pending placement. Made aware of bed availability this afternoon, and [facility] DISCHARGE MEDICATIONS: Please see below. ALLERGIES: Please see below. LABORATORY DATA: Please see below. ACTIVITY: [As tolerated]. DIET: 2 gram sodium, carb consistent DISPOSITION: [facility]. DISCHARGE INSTRUCTIONS: 1. Follow up PCP in 3-5 days. DISCHARGE CONDITION: [Stable]. TIME SPENT ON DISCHARGE: Greater than 30 minutes. Vital Signs/I&Os Vital Signs Date Time Temp Pulse Resp B/P Pulse Ox O2 Delivery O2 Flow Rate FiO2 01/13/17 06:00 99.0 65 18 115/58 96 Room Air I&O- Last 24 Hours up to 6 AM 01/13/17 06:00 Intake Total 1380 ml Output Total 1725 ml Balance -345 ml Laboratory Data Labs 24H Laboratory Tests 2 01/12/17 16:22: Bedside Glucose (Misc Panel) 205H 01/12/17 19:48: Bedside Glucose (Misc Panel) 292H 01/13/17 06:46: Bedside Glucose (Misc Panel) 205H FSBS Laboratory Tests Test 01/12/17 16:22 01/12/17 19:48 01/13/17 06:46 Range/Units Bedside Glucose (Misc Panel) 205 292 205 83-110 MG/DL Discharge Medications Scheduled Atorvastatin Calcium (Atorvastatin Calcium) 40 Mg Tab 40 MG PO DAILY (Reported ) Furosemide (Furosemide) 20 Mg Tab 20 MG PO DAILY (Reported) Insulin Human Isophan/Regular (Humulin 70/30 (70-30) 100 Unit/ml) 1 Inj Inj 10 UNITS SC DAILY@0730 Insulin Human Isophan/Regular (Humulin 70/30 (70-30) 100 Unit/ml) 1 Inj Inj 20 UNITS SC DAILY@1730 Insulin Human Lispro (Humalog) 1 Units/0.01 Ml Inj 0 UNITS SC AC Insulin Human Lispro (Humalog) 1 Units/0.01 Ml Inj 0 UNITS SC QHS Lisinopril (Lisinopril) 20 Mg Tab 20 MG PO DAILY (Reported) Metformin Hydrochloride (Metformin HCl) 500 Mg Tab 500 MG PO BID (Reported) Potassium Chloride (Klor-Con M10) 10 Meq Tabcr 10 MEQ PO BID (Reported) Allergies Coded Allergies: No Known Allergies (Unverified , 12/05/16) CALEB VIGIL MD Jan 13, 2017 16:13
== END 2017-01-13 13:59 | DRG 638 ==
LOC: M ED 17:51 → M ED INP 22:13 → M MS5PR 12-06 02:15 → OBSVTOIN 12-06 10:28 → M MS5PR 12-07 22:30 → M MSPAV 01-06 14:45
PROVIDERS: ADMIT Hospitalist; ATTEND Internal Medicine
DX: E11.65 Type 2 diabetes mellitus with hyperglycemia (principal); N17.9 Acute kidney failure, unspecified; E87.1 Hypo-osmolality and hyponatremia; L97.211 Non-pressure chronic ulcer of right calf limited to breakdown of skin; E87.5 Hyperkalemia; I10 Essential (primary) hypertension; E78.5 Hyperlipidemia, unspecified; Z66 Do not resuscitate; C61 Malignant neoplasm of prostate; Z91.19 Patient's noncompliance with other medical treatment and regimen; Z79.4 Long term (current) use of insulin; Z79.899 Other long term (current) drug therapy; Z91.81 History of falling; I87.8 Other specified disorders of veins; D50.9 Iron deficiency anemia, unspecified

== ENCOUNTER → 2017-01-16 | Outpatient (REF) ==
[~2017-01-16] MED LIST: ATOR40TA PO; FURO20TA2 PO; HUMU70IN SC; INSUHUMDS SC; LISI-538 PO; METF500T PO; POTA10CA PO
[2017-01-16 09:27] LABS: ANION GAP 6 MEQ/L (8-16); BLOOD UREA NITROGEN 17 MG/DL (7-18); CALCIUM LEVEL 8.6 MG/DL (8.8-10.2); CARBON DIOXIDE LEVEL 29 MEQ/L (21-32); CHLORIDE LEVEL 103 MEQ/L (98-107); CREATININE FOR GFR 0.86 MG/DL (0.70-1.30); GLOMERULAR FILTRATION RATE > 60.0 (>35); GLUCOSE, FASTING 201 MG/DL (83-110); POTASSIUM SERUM 4.4 MEQ/L (3.5-5.1); SODIUM LEVEL 138 MEQ/L (136-145)
== END ==
LOC: SKLAB7 09:25
PROVIDERS: ATTEND Family Medicine
DX: E11.9 Type 2 diabetes mellitus without complications (principal)

== ENCOUNTER → 2017-01-23 | Outpatient (REF) ==
[2017-01-23 08:41] LABS: ANION GAP 5 MEQ/L (8-16); BLOOD UREA NITROGEN 22 MG/DL (7-18); CALCIUM LEVEL 8.9 MG/DL (8.8-10.2); CARBON DIOXIDE LEVEL 29 MEQ/L (21-32); CHLORIDE LEVEL 104 MEQ/L (98-107); CREATININE FOR GFR 0.96 MG/DL (0.70-1.30); GLOMERULAR FILTRATION RATE > 60.0 (>35); GLUCOSE, FASTING 173 MG/DL (83-110); POTASSIUM SERUM 4.8 MEQ/L (3.5-5.1); SODIUM LEVEL 138 MEQ/L (136-145)
== END ==
LOC: SKLAB7 07:00
PROVIDERS: ATTEND Family Medicine
DX: E11.9 Type 2 diabetes mellitus without complications (principal)

== ENCOUNTER → 2017-02-06 | Outpatient (REF) ==
[2017-02-06 09:04] LABS: ANION GAP 7 MEQ/L (8-16); BLOOD UREA NITROGEN 19 MG/DL (7-18); CALCIUM LEVEL 8.5 MG/DL (8.8-10.2); CARBON DIOXIDE LEVEL 28 MEQ/L (21-32); CHLORIDE LEVEL 103 MEQ/L (98-107); CREATININE FOR GFR 0.97 MG/DL (0.70-1.30); GLOMERULAR FILTRATION RATE > 60.0 (>35); GLUCOSE, FASTING 210 MG/DL (83-110); SODIUM LEVEL 138 MEQ/L (136-145)
== END ==
LOC: SKLAB7 07:00
PROVIDERS: ATTEND Family Medicine
DX: E11.9 Type 2 diabetes mellitus without complications (principal); I10 Essential (primary) hypertension; E78.5 Hyperlipidemia, unspecified; F32.9 Major depressive disorder, single episode, unspecified; F03.90 Unspecified dementia, unspecified severity, without behavioral disturbance, psychotic disturbance, mood disturbance, and anxiety

== ENCOUNTER → 2017-02-12 | Outpatient (REF) | payer MEDICARE ==
--- NOTE | 2017-02-12 14:45 | REP ---
RIGHT KNEE, FIVE VIEWS: HISTORY: Pain. There is no acute fracture or dislocation. There is marked narrowing of the joint spaces with associated osteophyte formation. The bony structure is osteopenic. IMPRESSION: Degenerative change as described above. Signed by Jalen Simmons MD 02/12/2017 02:55 P
== END ==
LOC: SKLAB7 12:43
PROVIDERS: ATTEND Family Medicine
DX: M17.9 Osteoarthritis of knee, unspecified (principal); M25.561 Pain in right knee

== ENCOUNTER → 2017-02-13 | Outpatient (REF) ==
[2017-02-13 08:52] LABS: ANION GAP 5 MEQ/L (8-16); BLOOD UREA NITROGEN 20 MG/DL (7-18); CALCIUM LEVEL 8.4 MG/DL (8.8-10.2); CARBON DIOXIDE LEVEL 30 MEQ/L (21-32); CHLORIDE LEVEL 104 MEQ/L (98-107); GLOMERULAR FILTRATION RATE > 60.0 (>35); GLUCOSE, FASTING 214 MG/DL (83-110); POTASSIUM SERUM 4.6 MEQ/L (3.5-5.1); SODIUM LEVEL 139 MEQ/L (136-145)
== END ==
LOC: SKLAB7 07:00
PROVIDERS: ATTEND Family Medicine
DX: E11.9 Type 2 diabetes mellitus without complications (principal); I10 Essential (primary) hypertension; E78.5 Hyperlipidemia, unspecified

== ENCOUNTER → 2017-02-20 | Outpatient (REF) ==
[2017-02-20 09:11] LABS: ANION GAP 7 MEQ/L (8-16); BLOOD UREA NITROGEN 29 MG/DL (7-18); CALCIUM LEVEL 8.5 MG/DL (8.8-10.2); CARBON DIOXIDE LEVEL 29 MEQ/L (21-32); CHLORIDE LEVEL 102 MEQ/L (98-107); CREATININE FOR GFR 1.09 MG/DL (0.70-1.30); GLOMERULAR FILTRATION RATE > 60.0 (>35); GLUCOSE, FASTING 187 MG/DL (83-110); SODIUM LEVEL 138 MEQ/L (136-145)
[2017-02-20 09:27] LABS: POTASSIUM SERUM 5.4 MEQ/L (3.5-5.1)
== END ==
LOC: SKLAB7 09:33
PROVIDERS: ATTEND Family Medicine
DX: E11.9 Type 2 diabetes mellitus without complications (principal)

== ENCOUNTER → 2017-02-27 | Outpatient (REF) ==
[2017-02-27 09:21] LABS: ANION GAP 6 MEQ/L (8-16); BLOOD UREA NITROGEN 30 MG/DL (7-18); CALCIUM LEVEL 8.5 MG/DL (8.8-10.2); CARBON DIOXIDE LEVEL 30 MEQ/L (21-32); CHLORIDE LEVEL 103 MEQ/L (98-107); GLOMERULAR FILTRATION RATE > 60.0 (>35); GLUCOSE, FASTING 211 MG/DL (83-110); POTASSIUM SERUM 5.1 MEQ/L (3.5-5.1); SODIUM LEVEL 139 MEQ/L (136-145)
== END ==
LOC: SKLAB7 08:00
PROVIDERS: ATTEND Family Medicine
DX: E11.9 Type 2 diabetes mellitus without complications (principal)

== ENCOUNTER → 2017-03-06 | Outpatient (REF) ==
[2017-03-06 09:31] LABS: ANION GAP 5 MEQ/L (8-16); BLOOD UREA NITROGEN 29 MG/DL (7-18); CALCIUM LEVEL 9.3 MG/DL (8.8-10.2); CARBON DIOXIDE LEVEL 30 MEQ/L (21-32); CHLORIDE LEVEL 102 MEQ/L (98-107); CREATININE FOR GFR 1.07 MG/DL (0.70-1.30); GLOMERULAR FILTRATION RATE > 60.0 (>35); GLUCOSE, FASTING 149 MG/DL (83-110); POTASSIUM SERUM 4.5 MEQ/L (3.5-5.1); SODIUM LEVEL 137 MEQ/L (136-145)
== END ==
LOC: SKLAB7 10:18
PROVIDERS: ATTEND Family Medicine
DX: E11.9 Type 2 diabetes mellitus without complications (principal)

== ENCOUNTER → 2017-03-13 | Outpatient (REF) ==
[~2017-03-13] MED LIST changes: -ATOR40TA PO; +ATOR40TA75 PO; -METF500T PO; +METF500T13 PO
[2017-03-13 09:48] LABS: ANION GAP 10 MEQ/L (8-16); BLOOD UREA NITROGEN 28 MG/DL (7-18); CALCIUM LEVEL 9.1 MG/DL (8.8-10.2); CARBON DIOXIDE LEVEL 24 MEQ/L (21-32); CHLORIDE LEVEL 103 MEQ/L (98-107); CREATININE FOR GFR 0.99 MG/DL (0.70-1.30); GLOMERULAR FILTRATION RATE > 60.0 (>35); GLUCOSE, FASTING 178 MG/DL (83-110); POTASSIUM SERUM 5.1 MEQ/L (3.5-5.1); SODIUM LEVEL 137 MEQ/L (136-145)
== END ==
LOC: SKLAB7 07:00
PROVIDERS: ATTEND Family Medicine
DX: E11.9 Type 2 diabetes mellitus without complications (principal)

== ENCOUNTER → 2017-03-20 | Outpatient (REF) | payer MEDICARE ==
[~2017-03-20] MED LIST changes: +ATOR40TA PO; -ATOR40TA75 PO; +METF500T PO; -METF500T13 PO
[2017-03-20 08:48] LABS: ANION GAP 6 MEQ/L (8-16); BLOOD UREA NITROGEN 32 MG/DL (7-18); CALCIUM LEVEL 9.1 MG/DL (8.8-10.2); CARBON DIOXIDE LEVEL 30 MEQ/L (21-32); CHLORIDE LEVEL 100 MEQ/L (98-107); CREATININE FOR GFR 1.13 MG/DL (0.70-1.30); GLOMERULAR FILTRATION RATE > 60.0 (>35); GLUCOSE, FASTING 155 MG/DL (83-110); SODIUM LEVEL 136 MEQ/L (136-145)
== END ==
LOC: SKLAB7 07:00
PROVIDERS: ATTEND Family Medicine
DX: E11.9 Type 2 diabetes mellitus without complications (principal)

== ENCOUNTER → 2017-03-27 | Outpatient (REF) | payer MEDICARE ==
[2017-03-27 10:16] LABS: CALCIUM LEVEL 8.4 MG/DL (8.8-10.2); CREATININE FOR GFR 1.27 MG/DL (0.70-1.30); GLOMERULAR FILTRATION RATE 57.9 (>35)
[2017-03-27 10:20] LABS: POTASSIUM SERUM 5.9 MEQ/L (3.5-5.1)
== END ==
LOC: SKLAB7 07:00
PROVIDERS: ATTEND Family Medicine
DX: E11.9 Type 2 diabetes mellitus without complications (principal)

== ENCOUNTER → 2017-04-03 | Outpatient (REF) | payer MEDICARE ==
[2017-04-03 09:40] LABS: CALCIUM LEVEL 8.6 MG/DL (8.8-10.2); CREATININE FOR GFR 1.36 MG/DL (0.70-1.30); GLOMERULAR FILTRATION RATE 53.4 (>35)
[2017-04-03 09:42] LABS: POTASSIUM SERUM 5.2 MEQ/L (3.5-5.1)
== END ==
LOC: SKLAB7 08:32
PROVIDERS: ATTEND Family Medicine
DX: E11.9 Type 2 diabetes mellitus without complications (principal)

== ENCOUNTER → 2017-04-04 | Outpatient (REF) | payer MEDICARE | LOC: SKLAB7 21:57 | PROVIDERS: ATTEND Family Medicine | DX: R50.9 Fever, unspecified (principal) ==

== ENCOUNTER → 2017-04-05 | Outpatient (REF) | payer MEDICARE ==
[2017-04-05 09:13] LABS: MEAN CORPUSCULAR HEMOGLOBIN 29.6 pg (27.0-33.0); MEAN CORPUSCULAR HGB CONC 31.7 g/dl (32.0-36.5); MEAN CORPUSCULAR VOLUME 93.4 fl (80.0-96.0); PLATELET COUNT, AUTOMATED 259 k/mm3 (150-450); RED CELL DISTRIBUTION WIDTH 13.8 % (11.5-14.5); WHITE BLOOD COUNT 18.6 K/mm3 (4.0-10.0)
[2017-04-05 09:31] LABS: ALBUMIN 2.4 GM/DL (3.2-5.2); ALBUMIN/GLOBULIN RATIO 0.52 (1.00-1.93); BILIRUBIN,TOTAL 0.5 MG/DL (0.2-1.0); CALCIUM LEVEL 9.1 MG/DL (8.8-10.2); CREATININE FOR GFR 1.48 MG/DL (0.70-1.30); GLOMERULAR FILTRATION RATE 48.4 (>35); POTASSIUM SERUM 4.6 MEQ/L (3.5-5.1)
[2017-04-05 10:04] LABS: BANDS 4 % (< 11); EOSINOPHILS 1 % (0-5)
[2017-04-05 10:05] LABS: ANISOCYTOSIS 1+; MICROCYTOSIS 1+
[2017-04-05 11:37] LABS: YEAST LIKE CELL URINE AUTO MODERATE
== END ==
LOC: SKLAB7 08:28
PROVIDERS: ATTEND Family Medicine
DX: R50.9 Fever, unspecified (principal)

== ENCOUNTER → 2017-04-06 | Outpatient (REF) | payer MEDICARE ==
[2017-04-06 11:47] LABS: MEAN CORPUSCULAR HEMOGLOBIN 30.5 pg (27.0-33.0); MEAN CORPUSCULAR HGB CONC 33.4 g/dl (32.0-36.5); MEAN CORPUSCULAR VOLUME 91.5 fl (80.0-96.0); PLATELET COUNT, AUTOMATED 232 k/mm3 (150-450); RED CELL DISTRIBUTION WIDTH 13.6 % (11.5-14.5); WHITE BLOOD COUNT 14.2 K/mm3 (4.0-10.0)
[2017-04-06 11:59] LABS: CALCIUM LEVEL 8.4 MG/DL (8.8-10.2); CREATININE FOR GFR 1.24 MG/DL (0.70-1.30); GLOMERULAR FILTRATION RATE 59.4 (>35); POTASSIUM SERUM 4.6 MEQ/L (3.5-5.1)
[2017-04-06 12:30] LABS: BANDS 1 % (< 11); EOSINOPHILS 2 % (0-5)
[2017-04-06 12:31] LABS: ANISOCYTOSIS 1+
== END ==
LOC: SKLAB7 10:44
PROVIDERS: ATTEND Family Medicine
DX: R50.9 Fever, unspecified (principal)

== ENCOUNTER → 2017-04-07 | Outpatient (REF) | payer MEDICARE ==
[2017-04-07 08:39] LABS: MEAN CORPUSCULAR HEMOGLOBIN 30.8 pg (27.0-33.0); MEAN CORPUSCULAR HGB CONC 33.5 g/dl (32.0-36.5); MEAN CORPUSCULAR VOLUME 91.9 fl (80.0-96.0); PLATELET COUNT, AUTOMATED 275 k/mm3 (150-450); RED CELL DISTRIBUTION WIDTH 13.8 % (11.5-14.5); WHITE BLOOD COUNT 11.3 K/mm3 (4.0-10.0)
[2017-04-07 08:47] LABS: ANION GAP 6 MEQ/L (8-16); BLOOD UREA NITROGEN 42 MG/DL (7-18); CALCIUM LEVEL 8.7 MG/DL (8.8-10.2); CARBON DIOXIDE LEVEL 28 MEQ/L (21-32); CHLORIDE LEVEL 101 MEQ/L (98-107); CREATININE FOR GFR 1.17 MG/DL (0.70-1.30); GLOMERULAR FILTRATION RATE > 60.0 (>35); GLUCOSE, FASTING 251 MG/DL (83-110); POTASSIUM SERUM 4.7 MEQ/L (3.5-5.1); SODIUM LEVEL 135 MEQ/L (136-145)
[2017-04-07 09:10] LABS: EOSINOPHILS 2 % (0-5)
== END ==
LOC: SKLAB7 07:00
PROVIDERS: ATTEND Family Medicine
DX: R50.9 Fever, unspecified (principal)

== ENCOUNTER → 2017-04-10 | Outpatient (REF) | payer MEDICARE ==
[2017-04-10 09:10] LABS: MEAN CORPUSCULAR HEMOGLOBIN 30.4 pg (27.0-33.0); MEAN CORPUSCULAR HGB CONC 32.7 g/dl (32.0-36.5); MEAN CORPUSCULAR VOLUME 92.9 fl (80.0-96.0); PLATELET COUNT, AUTOMATED 333 k/mm3 (150-450); RED CELL DISTRIBUTION WIDTH 13.6 % (11.5-14.5); WHITE BLOOD COUNT 10.4 K/mm3 (4.0-10.0)
[2017-04-10 09:25] LABS: ALBUMIN 1.8 GM/DL (3.2-5.2); ALBUMIN/GLOBULIN RATIO 0.37 (1.00-1.93); ALKALINE PHOSPHATASE 288 U/L (45-117); ALT/SGPT 30 U/L (12-78); ANION GAP 6 MEQ/L (8-16); AST/SGOT 15 U/L (15-37); BILIRUBIN,TOTAL 0.4 MG/DL (0.2-1.0); BLOOD UREA NITROGEN 19 MG/DL (7-18); CALCIUM LEVEL 8.5 MG/DL (8.8-10.2); CARBON DIOXIDE LEVEL 29 MEQ/L (21-32); CHLORIDE LEVEL 105 MEQ/L (98-107); CREATININE FOR GFR 0.87 MG/DL (0.70-1.30); GLOMERULAR FILTRATION RATE > 60.0 (>35); GLUCOSE, FASTING 130 MG/DL (83-110); POTASSIUM SERUM 4.6 MEQ/L (3.5-5.1); SODIUM LEVEL 140 MEQ/L (136-145); TOTAL PROTEIN 6.7 GM/DL (6.4-8.2)
[2017-04-10 09:35] LABS: EOSINOPHILS 2 % (0-5)
[2017-04-10 09:37] LABS: ANISOCYTOSIS 1+
== END ==
LOC: SKLAB7 08:00
PROVIDERS: ATTEND Family Medicine
DX: E11.9 Type 2 diabetes mellitus without complications (principal); D72.829 Elevated white blood cell count, unspecified

== ENCOUNTER → 2017-04-17 | Outpatient (REF) | payer MEDICARE ==
[~2017-04-17] MED LIST changes: -ATOR40TA PO; +ATOR40TA75 PO; -METF500T PO; +METF500T13 PO
[2017-04-17 08:44] LABS: ANION GAP 4 MEQ/L (8-16); BLOOD UREA NITROGEN 19 MG/DL (7-18); CALCIUM LEVEL 8.4 MG/DL (8.8-10.2); CARBON DIOXIDE LEVEL 30 MEQ/L (21-32); CHLORIDE LEVEL 107 MEQ/L (98-107); CREATININE FOR GFR 0.76 MG/DL (0.70-1.30); GLOMERULAR FILTRATION RATE > 60.0 (>35); GLUCOSE, FASTING 165 MG/DL (83-110); POTASSIUM SERUM 4.6 MEQ/L (3.5-5.1); SODIUM LEVEL 141 MEQ/L (136-145)
== END ==
LOC: SKLAB7 07:00
PROVIDERS: ATTEND Family Medicine
DX: E11.9 Type 2 diabetes mellitus without complications (principal)

== ENCOUNTER → 2017-04-24 | Outpatient (REF) | payer MEDICARE ==
[2017-04-24 09:45] LABS: ANION GAP 5 MEQ/L (8-16); BLOOD UREA NITROGEN 16 MG/DL (7-18); CALCIUM LEVEL 8.8 MG/DL (8.8-10.2); CARBON DIOXIDE LEVEL 30 MEQ/L (21-32); CHLORIDE LEVEL 108 MEQ/L (98-107); CREATININE FOR GFR 0.79 MG/DL (0.70-1.30); GLOMERULAR FILTRATION RATE > 60.0 (>35); GLUCOSE, FASTING 57 MG/DL (83-110); POTASSIUM SERUM 4.3 MEQ/L (3.5-5.1); SODIUM LEVEL 143 MEQ/L (136-145)
== END ==
LOC: SKLAB7 11:50
PROVIDERS: ATTEND Family Medicine
DX: E11.9 Type 2 diabetes mellitus without complications (principal)

== ENCOUNTER → 2017-04-29 | Outpatient (REF) | payer MEDICARE ==
--- NOTE | 2017-04-29 17:51 | REP ---
CHEST, SINGLE VIEW: Single view of the chest is performed and compared to prior study of 12/05/2016. There is cardiomegaly. There is no acute infiltrate. There is mild elevation of the right hemidiaphragm. Mediastinal silhouette is unchanged. IMPRESSION: No acute pulmonary disease. Mild cardiomegaly. Signed by Bradley Ahuja MD 04/30/2017 05:34 P
== END ==
LOC: SKLAB7 11:19
PROVIDERS: ATTEND Family Medicine
DX: Z53.20 Procedure and treatment not carried out because of patient's decision for unspecified reasons (principal); I51.7 Cardiomegaly

== ENCOUNTER → 2017-04-29 | Outpatient (REF) | payer MEDICARE | LOC: M RAD 11:52 | PROVIDERS: ATTEND Family Medicine | DX: Z53.9 Procedure and treatment not carried out, unspecified reason (principal) ==

== ENCOUNTER → 2017-05-01 | Outpatient (REF) | payer MEDICARE ==
[2017-05-01 10:47] LABS: ANION GAP 6 MEQ/L (8-16); BLOOD UREA NITROGEN 17 MG/DL (7-18); CALCIUM LEVEL 8.6 MG/DL (8.8-10.2); CARBON DIOXIDE LEVEL 28 MEQ/L (21-32); CHLORIDE LEVEL 102 MEQ/L (98-107); CREATININE FOR GFR 0.82 MG/DL (0.70-1.30); GLOMERULAR FILTRATION RATE > 60.0 (>35); GLUCOSE, FASTING 174 MG/DL (83-110); POTASSIUM SERUM 4.4 MEQ/L (3.5-5.1); SODIUM LEVEL 136 MEQ/L (136-145)
== END ==
LOC: SKLAB7 14:33
PROVIDERS: ATTEND Family Medicine
DX: E11.9 Type 2 diabetes mellitus without complications (principal)

== ENCOUNTER → 2017-05-08 | Outpatient (REF) | payer MEDICARE ==
[2017-05-08 09:01] LABS: ANION GAP 5 MEQ/L (8-16); BLOOD UREA NITROGEN 19 MG/DL (7-18); CALCIUM LEVEL 8.9 MG/DL (8.8-10.2); CARBON DIOXIDE LEVEL 30 MEQ/L (21-32); CHLORIDE LEVEL 103 MEQ/L (98-107); CREATININE FOR GFR 0.85 MG/DL (0.70-1.30); GLOMERULAR FILTRATION RATE > 60.0 (>35); GLUCOSE, FASTING 145 MG/DL (83-110); POTASSIUM SERUM 4.4 MEQ/L (3.5-5.1); SODIUM LEVEL 138 MEQ/L (136-145)
== END ==
LOC: SKLAB7 07:00
PROVIDERS: ATTEND Family Medicine
DX: E11.9 Type 2 diabetes mellitus without complications (principal)

== ENCOUNTER → 2017-05-15 | Outpatient (REF) | payer MEDICARE ==
[2017-05-15 08:46] LABS: ANION GAP 3 MEQ/L (8-16); BLOOD UREA NITROGEN 24 MG/DL (7-18); CALCIUM LEVEL 9.5 MG/DL (8.8-10.2); CARBON DIOXIDE LEVEL 32 MEQ/L (21-32); CHLORIDE LEVEL 99 MEQ/L (98-107); CREATININE FOR GFR 0.85 MG/DL (0.70-1.30); GLOMERULAR FILTRATION RATE > 60.0 (>35); GLUCOSE, FASTING 293 MG/DL (83-110); SODIUM LEVEL 134 MEQ/L (136-145)
== END ==
LOC: SKLAB7 08:11
PROVIDERS: ATTEND Family Medicine
DX: E11.9 Type 2 diabetes mellitus without complications (principal)

== ENCOUNTER → 2017-05-22 | Outpatient (REF) | payer MEDICARE ==
[2017-05-22 08:59] LABS: ANION GAP 6 MEQ/L (8-16); BLOOD UREA NITROGEN 20 MG/DL (7-18); CALCIUM LEVEL 9.1 MG/DL (8.8-10.2); CARBON DIOXIDE LEVEL 31 MEQ/L (21-32); CHLORIDE LEVEL 100 MEQ/L (98-107); CREATININE FOR GFR 0.79 MG/DL (0.70-1.30); GLOMERULAR FILTRATION RATE > 60.0 (>35); GLUCOSE, FASTING 214 MG/DL (83-110); POTASSIUM SERUM 4.8 MEQ/L (3.5-5.1); SODIUM LEVEL 137 MEQ/L (136-145)
== END ==
LOC: SKLAB7 14:10
PROVIDERS: ATTEND Family Medicine
DX: E11.9 Type 2 diabetes mellitus without complications (principal)

== ENCOUNTER → 2017-05-29 | Outpatient (REF) | payer MEDICARE ==
[2017-05-29 10:23] LABS: ANION GAP 8 MEQ/L (8-16); BLOOD UREA NITROGEN 22 MG/DL (7-18); CALCIUM LEVEL 8.4 MG/DL (8.8-10.2); CARBON DIOXIDE LEVEL 28 MEQ/L (21-32); CHLORIDE LEVEL 104 MEQ/L (98-107); CREATININE FOR GFR 0.84 MG/DL (0.70-1.30); GLOMERULAR FILTRATION RATE > 60.0 (>35); GLUCOSE, FASTING 125 MG/DL (83-110); POTASSIUM SERUM 4.4 MEQ/L (3.5-5.1); SODIUM LEVEL 140 MEQ/L (136-145)
== END ==
LOC: SKLAB7 07:00
PROVIDERS: ATTEND Family Medicine
DX: E11.9 Type 2 diabetes mellitus without complications (principal)

== ENCOUNTER → 2017-06-05 | Outpatient (REF) | payer MEDICARE ==
[2017-06-05 09:21] LABS: ANION GAP 3 MEQ/L (8-16); BLOOD UREA NITROGEN 18 MG/DL (7-18); CALCIUM LEVEL 9.3 MG/DL (8.8-10.2); CARBON DIOXIDE LEVEL 34 MEQ/L (21-32); CHLORIDE LEVEL 104 MEQ/L (98-107); CREATININE FOR GFR 0.79 MG/DL (0.70-1.30); GLOMERULAR FILTRATION RATE > 60.0 (>35); GLUCOSE, FASTING 120 MG/DL (83-110); SODIUM LEVEL 141 MEQ/L (136-145)
== END ==
LOC: SKLAB7 08:16
PROVIDERS: ATTEND Family Medicine
DX: E11.9 Type 2 diabetes mellitus without complications (principal)

== ENCOUNTER → 2017-06-12 | Outpatient (REF) | payer MEDICARE ==
[2017-06-12 08:55] LABS: ANION GAP 7 MEQ/L (8-16); BLOOD UREA NITROGEN 23 MG/DL (7-18); CALCIUM LEVEL 8.6 MG/DL (8.8-10.2); CARBON DIOXIDE LEVEL 31 MEQ/L (21-32); CHLORIDE LEVEL 106 MEQ/L (98-107); GLOMERULAR FILTRATION RATE > 60.0 (>35); GLUCOSE, FASTING 113 MG/DL (83-110); POTASSIUM SERUM 4.5 MEQ/L (3.5-5.1); SODIUM LEVEL 144 MEQ/L (136-145)
== END ==
LOC: SKLAB7 07:00
PROVIDERS: ATTEND Family Medicine
DX: E11.9 Type 2 diabetes mellitus without complications (principal)

== ENCOUNTER → 2017-08-07 | Outpatient (REF) | payer MEDICARE, MEDICAID ==
[2017-08-07 09:04] LABS: ANION GAP 4 MEQ/L (8-16); BLOOD UREA NITROGEN 20 MG/DL (7-18); CARBON DIOXIDE LEVEL 32 MEQ/L (21-32); CHLORIDE LEVEL 103 MEQ/L (98-107); CREATININE FOR GFR 0.88 MG/DL (0.70-1.30); GLOMERULAR FILTRATION RATE > 60.0 (>35); GLUCOSE, FASTING 229 MG/DL (83-110); POTASSIUM SERUM 4.7 MEQ/L (3.5-5.1); SODIUM LEVEL 139 MEQ/L (136-145)
== END ==
LOC: SKLAB7 07:00
PROVIDERS: ATTEND Family Medicine
DX: E11.9 Type 2 diabetes mellitus without complications (principal); I11.9 Hypertensive heart disease without heart failure

== ENCOUNTER → 2017-09-04 | Outpatient (REF) | payer MEDICARE, MEDICAID ==
[2017-09-04 09:36] LABS: ANION GAP 3 MEQ/L (8-16); BLOOD UREA NITROGEN 21 MG/DL (7-18); CALCIUM LEVEL 8.8 MG/DL (8.8-10.2); CARBON DIOXIDE LEVEL 34 MEQ/L (21-32); CHLORIDE LEVEL 101 MEQ/L (98-107); CREATININE FOR GFR 0.96 MG/DL (0.70-1.30); GLOMERULAR FILTRATION RATE > 60.0 (>35); GLUCOSE, FASTING 233 MG/DL (83-110); POTASSIUM SERUM 4.4 MEQ/L (3.5-5.1); SODIUM LEVEL 138 MEQ/L (136-145)
== END ==
LOC: SKLAB7 07:00
PROVIDERS: ATTEND Family Medicine
DX: E11.9 Type 2 diabetes mellitus without complications (principal)

== ENCOUNTER → 2017-10-09 | Outpatient (REF) | payer MEDICARE, MEDICAID ==
[2017-10-09 10:02] LABS: ANION GAP 7 MEQ/L (8-16); BLOOD UREA NITROGEN 22 MG/DL (7-18); CALCIUM LEVEL 8.9 MG/DL (8.8-10.2); CARBON DIOXIDE LEVEL 32 MEQ/L (21-32); CHLORIDE LEVEL 99 MEQ/L (98-107); CREATININE FOR GFR 1.08 MG/DL (0.70-1.30); GLOMERULAR FILTRATION RATE > 60.0 (>35); GLUCOSE, FASTING 322 MG/DL (83-110); POTASSIUM SERUM 4.2 MEQ/L (3.5-5.1); SODIUM LEVEL 138 MEQ/L (136-145)
== END ==
LOC: SKLAB7 07:00
PROVIDERS: ATTEND Family Medicine
DX: E11.9 Type 2 diabetes mellitus without complications (principal)

== ENCOUNTER → 2017-11-06 | Outpatient (REF) | payer MEDICARE, MEDICAID ==
[2017-11-06 10:11] LABS: ANION GAP 5 MEQ/L (8-16); BLOOD UREA NITROGEN 25 MG/DL (7-18); CALCIUM LEVEL 8.7 MG/DL (8.8-10.2); CARBON DIOXIDE LEVEL 32 MEQ/L (21-32); CHLORIDE LEVEL 99 MEQ/L (98-107); CREATININE FOR GFR 1.02 MG/DL (0.70-1.30); GLOMERULAR FILTRATION RATE > 60.0 (>35); GLUCOSE, FASTING 305 MG/DL (83-110); POTASSIUM SERUM 4.2 MEQ/L (3.5-5.1); SODIUM LEVEL 136 MEQ/L (136-145)
== END ==
LOC: SKLAB7 07:00
DX: E11.9 Type 2 diabetes mellitus without complications (principal)
CPT/HCPCS: 36415

== ENCOUNTER → 2017-11-11 | Outpatient (REF) | payer MEDICARE, MEDICAID | LOC: SKLAB7 15:02 | DX: R10.9 Unspecified abdominal pain (principal) | CPT/HCPCS: 74018 ==

== ENCOUNTER → 2017-11-11 | Outpatient (REF) | payer MEDICARE, MEDICAID | LOC: M RAD 07:00 | DX: E11.9 Type 2 diabetes mellitus without complications (principal) ==

== ENCOUNTER → 2017-12-04 | Outpatient (REF) | payer MEDICARE, MEDICAID ==
[2017-12-04 09:53] LABS: ANION GAP 8 MEQ/L (8-16); BLOOD UREA NITROGEN 30 MG/DL (7-18); CALCIUM LEVEL 8.7 MG/DL (8.8-10.2); CARBON DIOXIDE LEVEL 30 MEQ/L (21-32); CHLORIDE LEVEL 98 MEQ/L (98-107); CREATININE FOR GFR 1.41 MG/DL (0.70-1.30); GLOMERULAR FILTRATION RATE 51.2 (>35); GLUCOSE, FASTING 377 MG/DL (70-100); POTASSIUM SERUM 4.7 MEQ/L (3.5-5.1); SODIUM LEVEL 136 MEQ/L (136-145)
== END ==
LOC: SKLAB7 07:20
DX: E11.9 Type 2 diabetes mellitus without complications (principal)
CPT/HCPCS: 36415

== ENCOUNTER → 2017-12-05 | Outpatient (REF) | payer MEDICARE, MEDICAID ==
[2017-12-05 14:20] LABS: BASO # 0.1 10^3/uL (0.0-0.2); BASO % 0.6 % (0.0-1.0); EOS # 0.5 10^3/uL (0.0-0.50); EOS % 3.8 % (0.0-3.0); HEMATOCRIT 33.8 % (42.0-52.0); HEMOGLOBIN 11.2 g/dl (14.0-18.0); IMMATURE GRANULOCYTE % 0.4 % (0-3.0); LYMPH # 1.6 10^3/uL (1.5-4.5); LYMPH % 13.4 % (24.0-44.0); MEAN CORPUSCULAR HEMOGLOBIN 29.9 pg (27.0-33.0); MEAN CORPUSCULAR HGB CONC 33.1 g/dl (32.0-36.5); MEAN CORPUSCULAR VOLUME 90.4 fl (80.0-96.0); MONO # 0.7 10^3/uL (0.0-0.8); MONO % 6.1 % (0.0-5.0); NEUTROPHILS # 9.2 10^3/uL (1.8-7.7); NEUTROPHILS % 75.7 % (36.0-66.0); PLATELET COUNT, AUTOMATED 373 10^3/uL (150-450); RED BLOOD COUNT 3.74 10^6/uL (4.30-6.10); RED CELL DISTRIBUTION WIDTH 12.9 % (11.5-14.5); WHITE BLOOD COUNT 12.2 10^3/uL (4.0-10.0)
[2017-12-05 14:36] LABS: ALBUMIN 1.8 GM/DL (3.2-5.2); ALBUMIN/GLOBULIN RATIO 0.34 (1.00-1.93); ALKALINE PHOSPHATASE 258 U/L (45-117); ALT/SGPT 18 U/L (12-78); AST/SGOT 11 U/L (7-37); BILIRUBIN,DIRECT 0.1 MG/DL (0.0-0.2); BILIRUBIN,TOTAL 0.4 MG/DL (0.2-1.0); CHOLESTEROL LEVEL 97 MG/DL (<200); CHOLESTEROL RISK RATIO 1.901 (<5); HDL CHOLESTEROL 51 MG/DL (>40); LDL CHOLESTEROL 26.2 MG/DL (<100); NON-HDL-C 46 MG/DL; TOTAL PROTEIN 7.1 GM/DL (6.4-8.2); TRIGLYCERIDES LEVEL 99 MG/DL (<150)
== END ==
LOC: SKLAB7 13:27
DX: E11.9 Type 2 diabetes mellitus without complications (principal)
CPT/HCPCS: 80076

== ENCOUNTER → 2017-12-06 | Outpatient (REF) | payer MEDICARE, MEDICAID ==
[2017-12-06 07:54] LABS: ANION GAP 7 MEQ/L (8-16); BLOOD UREA NITROGEN 31 MG/DL (7-18); CALCIUM LEVEL 8.9 MG/DL (8.8-10.2); CARBON DIOXIDE LEVEL 32 MEQ/L (21-32); CHLORIDE LEVEL 103 MEQ/L (98-107); CREATININE FOR GFR 1.31 MG/DL (0.70-1.30); GLOMERULAR FILTRATION RATE 55.8 (>35); GLUCOSE, FASTING 293 MG/DL (70-100); POTASSIUM SERUM 4.7 MEQ/L (3.5-5.1); SODIUM LEVEL 142 MEQ/L (136-145)
[2017-12-06 11:01] LABS: BASO # 0.1 10^3/uL (0.0-0.2); BASO % 0.5 % (0.0-1.0); EOS # 0.5 10^3/uL (0.0-0.50); EOS % 3.5 % (0.0-3.0); HEMATOCRIT 32.9 % (42.0-52.0); IMMATURE GRANULOCYTE % 0.5 % (0-3.0); LYMPH % 7.5 % (24.0-44.0); MEAN CORPUSCULAR HEMOGLOBIN 30.5 pg (27.0-33.0); MEAN CORPUSCULAR HGB CONC 33.4 g/dl (32.0-36.5); MEAN CORPUSCULAR VOLUME 91.1 fl (80.0-96.0); MONO # 0.8 10^3/uL (0.0-0.8); MONO % 5.9 % (0.0-5.0); NEUTROPHILS # 11.4 10^3/uL (1.8-7.7); NEUTROPHILS % 82.1 % (36.0-66.0); PLATELET COUNT, AUTOMATED 367 10^3/uL (150-450); RED BLOOD COUNT 3.61 10^6/uL (4.30-6.10); RED CELL DISTRIBUTION WIDTH 12.7 % (11.5-14.5); WHITE BLOOD COUNT 13.8 10^3/uL (4.0-10.0)
== END ==
LOC: SKLAB7 09:29
DX: E11.9 Type 2 diabetes mellitus without complications (principal)
CPT/HCPCS: 80048

== ENCOUNTER → 2017-12-08 | Outpatient (REF) | payer MEDICARE, MEDICAID ==
[2017-12-08 08:05] LABS: BASO # 0.1 10^3/uL (0.0-0.2); BASO % 0.5 % (0.0-1.0); EOS # 0.4 10^3/uL (0.0-0.50); EOS % 2.9 % (0.0-3.0); HEMATOCRIT 35.2 % (42.0-52.0); HEMOGLOBIN 11.7 g/dl (14.0-18.0); IMMATURE GRANULOCYTE % 0.4 % (0-3.0); LYMPH # 1.3 10^3/uL (1.5-4.5); LYMPH % 8.5 % (24.0-44.0); MEAN CORPUSCULAR HEMOGLOBIN 30.3 pg (27.0-33.0); MEAN CORPUSCULAR HGB CONC 33.2 g/dl (32.0-36.5); MEAN CORPUSCULAR VOLUME 91.2 fl (80.0-96.0); MONO % 6.3 % (0.0-5.0); NEUTROPHILS # 12.2 10^3/uL (1.8-7.7); NEUTROPHILS % 81.4 % (36.0-66.0); PLATELET COUNT, AUTOMATED 401 10^3/uL (150-450); RED BLOOD COUNT 3.86 10^6/uL (4.30-6.10); RED CELL DISTRIBUTION WIDTH 12.9 % (11.5-14.5)
[2017-12-08 08:26] LABS: ANION GAP 8 MEQ/L (8-16); BLOOD UREA NITROGEN 36 MG/DL (7-18); CALCIUM LEVEL 8.7 MG/DL (8.8-10.2); CARBON DIOXIDE LEVEL 29 MEQ/L (21-32); CHLORIDE LEVEL 103 MEQ/L (98-107); CREATININE FOR GFR 1.27 MG/DL (0.70-1.30); GLOMERULAR FILTRATION RATE 57.8 (>35); GLUCOSE, FASTING 269 MG/DL (70-100); POTASSIUM SERUM 4.4 MEQ/L (3.5-5.1); SODIUM LEVEL 140 MEQ/L (136-145)
== END ==
LOC: SKLAB7 12:55
DX: D72.829 Elevated white blood cell count, unspecified (principal)

== ENCOUNTER → 2017-12-08 | Outpatient (REF) | payer MEDICARE, MEDICAID ==
[2017-12-08 14:18] LABS: AMORPHOUS SEDIMENT MODERATE (NEGATIVE); APPEARANCE, URINE TURBID (CLEAR); BACTERIA, URINE AUTO NEGATIVE (NEGATIVE); BILIRUBIN, URINE AUTO NEGATIVE (NEGATIVE); BLOOD, URINE BLOOD 2+ (NEGATIVE); GLUCOSE, URINE (UA) AUTO 1+ mg/dL (NEGATIVE); KETONE, URINE AUTO NEGATIVE (NEGATIVE); LEUKOCYTE ESTERASE, URINE AUTO 3+ (NEGATIVE); NITRITE, URINE AUTO NEGATIVE (NEGATIVE); PROTEIN, URINE AUTO 2+ mg/dL (NEGATIVE); RBC, URINE AUTO TNTC /HPF (0-3); SPECIFIC GRAVITY URINE AUTO 1.009 (1.002-1.035); SQUAMOUS EPITHELIAL CELL UR AU 0 /HPF (0-6); UROBILINOGEN, URINE AUTO 0.2 mg/dL (0.0-2.0); WBC, URINE AUTO TNTC /HPF (0-3)
[2017-12-08 14:26] LABS: COLOR, URINE YELLOW (YELLOW)
== END ==
LOC: SKLAB7 13:29
DX: D72.829 Elevated white blood cell count, unspecified (principal); R09.81 Nasal congestion
CPT/HCPCS: 71045

== ENCOUNTER → 2017-12-16 | Outpatient (REF) | payer MEDICARE, MEDICAID | LOC: SKLAB7 15:09 | DX: Z22.322 Carrier or suspected carrier of Methicillin resistant Staphylococcus aureus (principal) | CPT/HCPCS: 87081 ==

== ENCOUNTER → 2017-12-25 | Outpatient (REF) | payer MEDICARE, MEDICAID ==
[2017-12-25 08:50] LABS: ANION GAP 9 MEQ/L (8-16); BLOOD UREA NITROGEN 50 MG/DL (7-18); CALCIUM LEVEL 9.8 MG/DL (8.8-10.2); CARBON DIOXIDE LEVEL 27 MEQ/L (21-32); CHLORIDE LEVEL 104 MEQ/L (98-107); CREATININE FOR GFR 1.84 MG/DL (0.70-1.30); GLOMERULAR FILTRATION RATE 37.7 (>35); GLUCOSE, FASTING 281 MG/DL (70-100); SODIUM LEVEL 140 MEQ/L (136-145)
[2017-12-25 08:52] LABS: POTASSIUM SERUM 5.7 MEQ/L (3.5-5.1)
== END ==
LOC: SKLAB7 07:14
DX: E11.9 Type 2 diabetes mellitus without complications (principal)
CPT/HCPCS: 36415

== ENCOUNTER → 2018-01-06 | Outpatient (REF) | payer MEDICARE, MEDICAID ==
[2018-01-06 14:43] LABS: HEMATOCRIT 32.8 % (42.0-52.0); HEMOGLOBIN 10.7 g/dl (14.0-18.0); MEAN CORPUSCULAR HEMOGLOBIN 30.3 pg (27.0-33.0); MEAN CORPUSCULAR HGB CONC 32.6 g/dl (32.0-36.5); MEAN CORPUSCULAR VOLUME 92.9 fl (80.0-96.0); PLATELET COUNT, AUTOMATED 353 10^3/uL (150-450); RED BLOOD COUNT 3.53 10^6/uL (4.30-6.10); RED CELL DISTRIBUTION WIDTH 14.6 % (11.5-14.5); WHITE BLOOD COUNT 12.3 10^3/uL (4.0-10.0)
[2018-01-06 15:08] LABS: ANION GAP 8 MEQ/L (8-16); BLOOD UREA NITROGEN 42 MG/DL (7-18); CARBON DIOXIDE LEVEL 24 MEQ/L (21-32); CHLORIDE LEVEL 102 MEQ/L (98-107); CREATININE FOR GFR 1.64 MG/DL (0.70-1.30); GLUCOSE, FASTING 321 MG/DL (70-100); SODIUM LEVEL 134 MEQ/L (136-145)
[2018-01-06 15:09] LABS: POTASSIUM SERUM 5.6 MEQ/L (3.5-5.1)
== END ==
LOC: SKLAB7 13:58
DX: D64.9 Anemia, unspecified (principal); E11.9 Type 2 diabetes mellitus without complications
CPT/HCPCS: 80048

== ENCOUNTER → 2018-01-07 | Outpatient (REF) | payer MEDICARE, MEDICAID ==
[2018-01-07 08:12] LABS: ANION GAP 6 MEQ/L (8-16); BLOOD UREA NITROGEN 39 MG/DL (7-18); CALCIUM LEVEL 9.5 MG/DL (8.8-10.2); CARBON DIOXIDE LEVEL 28 MEQ/L (21-32); CHLORIDE LEVEL 105 MEQ/L (98-107); CREATININE FOR GFR 1.58 MG/DL (0.70-1.30); GLOMERULAR FILTRATION RATE 44.9 (>35); GLUCOSE, FASTING 173 MG/DL (70-100); POTASSIUM SERUM 4.8 MEQ/L (3.5-5.1); SODIUM LEVEL 139 MEQ/L (136-145)
== END ==
LOC: SKLAB7 01:16
DX: E87.5 Hyperkalemia (principal)
CPT/HCPCS: 36415

== ENCOUNTER → 2018-02-10 | Outpatient (REF) | payer MEDICARE, MEDICAID ==
[2018-02-10 11:32] LABS: APPEARANCE, URINE MANUAL TURBID (CLEAR); COLOR, URINE MANUAL LT YELLOW (YELLOW)
[2018-02-10 11:33] LABS: BILIRUBIN, URINE MANUAL NEGATIVE (NEGATIVE); BLOOD URINE MANUAL POSITIVE (NEGATIVE); GLUCOSE, URINE (UA) MANUAL 3+(500 MG/DL) mg/dL (NEGATIVE); KETONE, URINE MANUAL 1+ mg/dL (NEGATIVE); LEUKOCYTE ESTERASE, URINE MAN POSITIVE (NEGATIVE); MICROSCOPIC INDICATED? MAN YES (NO); NITRITE, URINE MANUAL NEGATIVE (NEGATIVE); PROTEIN, URINE MANUAL 3+ mg/dL (NEGATIVE); SPECIFIC GRAVITY,URINE MANUAL 1.015 (1.002-1.035); UROBILINOGEN, URINE MANUAL NORMAL (NORMAL)
[2018-02-10 11:44] LABS: BACTERIA, URINE LARGE AMOUNT; HYALINE CAST, URINE NONE SEEN /lpf (0-1); MICROSCOPIC EXAM PERFORMED; RBC, URINE TNTC /hpf (0-3); SQUAMOUS EPITHELIAL CELL URINE NONE SEEN /hpf (SMALL AMT); WBC, URINE TNTC /hpf (0-3)
== END ==
LOC: SKLAB7 11:08
DX: N39.0 Urinary tract infection, site not specified (principal)
CPT/HCPCS: 81000

== ENCOUNTER → 2018-02-27 | Outpatient (REF) | payer MEDICARE, MEDICAID ==
[2018-02-27 07:10] LABS: ANION GAP 8 MEQ/L (8-16); BLOOD UREA NITROGEN 88 MG/DL (7-18); CALCIUM LEVEL 10.5 MG/DL (8.8-10.2); CARBON DIOXIDE LEVEL 22 MEQ/L (21-32); CHLORIDE LEVEL 109 MEQ/L (98-107); CREATININE FOR GFR 2.68 MG/DL (0.70-1.30); GLOMERULAR FILTRATION RATE 24.4 (>35); GLUCOSE, FASTING 99 MG/DL (70-100); SODIUM LEVEL 139 MEQ/L (136-145)
[2018-02-27 07:11] LABS: POTASSIUM SERUM 5.4 MEQ/L (3.5-5.1)
[2018-02-27 07:34] LABS: ESTIMATED AVERAGE GLUCOSE 235 MG/DL (60-110); HEMOGLOBIN A1c 9.8 %
== END ==
LOC: SKLAB7 07:00
DX: E11.9 Type 2 diabetes mellitus without complications (principal)
CPT/HCPCS: 83036

== ENCOUNTER → 2018-02-28 | Outpatient (REF) | payer MEDICARE, MEDICAID ==
[2018-02-28 07:50] LABS: ANION GAP 9 MEQ/L (8-16); BLOOD UREA NITROGEN 92 MG/DL (7-18); CALCIUM LEVEL 10.4 MG/DL (8.8-10.2); CARBON DIOXIDE LEVEL 21 MEQ/L (21-32); CHLORIDE LEVEL 111 MEQ/L (98-107); CREATININE FOR GFR 2.62 MG/DL (0.70-1.30); GLOMERULAR FILTRATION RATE 25.1 (>35); GLUCOSE, FASTING 121 MG/DL (70-100); SODIUM LEVEL 141 MEQ/L (136-145)
[2018-02-28 07:52] LABS: POTASSIUM SERUM 5.4 MEQ/L (3.5-5.1)
== END ==
LOC: SKLAB7 07:00
DX: E11.9 Type 2 diabetes mellitus without complications (principal)
CPT/HCPCS: 36415

== ENCOUNTER → 2018-03-01 | Outpatient (CLI) | payer MEDICARE, MEDICAID ==
[2018-03-01 08:17] LABS: ANION GAP 10 MEQ/L (8-16); BLOOD UREA NITROGEN 90 MG/DL (7-18); CALCIUM LEVEL 9.6 MG/DL (8.8-10.2); CARBON DIOXIDE LEVEL 20 MEQ/L (21-32); CHLORIDE LEVEL 109 MEQ/L (98-107); CREATININE FOR GFR 2.57 MG/DL (0.70-1.30); GLOMERULAR FILTRATION RATE 25.6 (>35); GLUCOSE, FASTING 75 MG/DL (70-100); MAGNESIUM LEVEL 2.4 MG/DL (1.8-2.4); POTASSIUM SERUM 4.8 MEQ/L (3.5-5.1); SODIUM LEVEL 139 MEQ/L (136-145)
== END ==
LOC: SKLAB7 01:25
DX: E87.5 Hyperkalemia (principal)
CPT/HCPCS: 83735

== ENCOUNTER → 2018-03-02 | Outpatient (REF) | payer MEDICARE, MEDICAID | LOC: M RAD 16:02 | DX: R10.9 Unspecified abdominal pain (principal) | CPT/HCPCS: 74018 ==

== ENCOUNTER → 2018-03-05 | Outpatient (REF) | payer MEDICARE, MEDICAID | LOC: SKLAB7 09:57 | DX: R19.7 Diarrhea, unspecified (principal) | CPT/HCPCS: 87493 ==